=== PATIENT | female | born 1935 | race African-American/Black ===

== ENCOUNTER 2016-03-08 13:45 | Outpatient (RCR) | payer MEDICARE, OTHER ==
[~2016-03-08 13:45] MED LIST: AMBIEN10 MG ORAL; ANUSOL-HC CREAM30 GM RECTAL; ASPIR 8181 MG ORAL; AUGMENTIN 875-1 EAC1 ORAL; AZITHROMYCIN250 MG ORAL; BACTRIM DS TAB1 EAC1 ORAL; BENZTROPINE MESY1 MG ORAL; BUSPAR10 MG ORAL; BUSPIRONE HCL5 M1 ORAL; COGENTIN1 MG ORAL; COSOPT1 DRO2 BOTH EYES; COUGH CONT100 MG/5 M PO; CYMBALTA60 MG ORAL; DONEPEZIL HCL10 MG ORAL; FOSAMAX70 MG ORAL; FUROSEMIDE40 MG ORAL; GENTAMICIN SULF15 G2 TOPIC; INVEGA3 MG PO; LIDODERM700 M1 TDERMAL; LUMIGAN2.5 ML BOTH EYES; NAPROSYN500 M1 ORAL; NORCO 5-325 TA1 EACH ORAL; OMEPRAZOLE20 M2 ORAL; PANTOPRAZOLE SO40 MG ORAL; PENTOXIFYLLINE400 MG ORAL; POTASSIUM CHLO10 MEQ ORAL; PREDNISONE20 MG ORAL; REMERON15 MG ORAL; RESTORIL30 MG ORAL; RISPERDAL2 MG ORAL; RISPERIDONE3 MG ORAL; TEMAZEPAM30 MG ORAL; TOVIAZ8 MG ORAL; TOVIAZ8 MG PO; TRAZODONE HCL150 MG ORAL; VITAMIN D1000 UNI1 ORAL; VOLTAREN100 G1 TP
[2016-04-19] MEDS ORDERED: INVEGA SUS78 MG/0.5 IM (13:48)
== END 2016-03-27 | disposition home or self-care (01) ==
LOC: PTY 13:45
DX: M54.9 Dorsalgia, unspecified (principal); R26.9 Unspecified abnormalities of gait and mobility
CPT/HCPCS: 97110; 97140; G0283

== ENCOUNTER 2016-04-03 10:35 | Inpatient (IN) | payer MEDICARE, OTHER ==
[~2016-04-03] VITALS: Ht 162.6 cm; Wt 90.7 kg
[2016-04-03 10:55] VITALS: BP 150/60
--- NOTE | 2016-04-03 12:36 | Diagnostic Imaging Report ---
Indication: Altered mental status, confused Technique: spiral acquisitions obtained through the brain. Angled axial and coronal 5 x 5 mm slices were reconstructed. No IV contrast utilized. Radiation dose was minimized using automated exposure control Total dose length product 1340 mGycm. CTDIvol(s) 70 mGy Comparison: none FINDINGS: No acute hemorrhage or edema. No mass effect or midline shift. There is minimal age-related enlargement of the ventricles and extra axial CSF spaces. There is minimal periventricular deep white matter ischemic change. Normal dinh-white differentiation. Visualized orbits are unremarkable. Visualized sinuses are unremarkable. Intact calvarium. IMPRESSION: Chronic and age-related changes. Negative for acute intracranial bleed or mass effect The CT scanner at [facility] is accredited by the [employer] and the scans are performed using protocols designed to limit radiation exposure to as low as reasonably achievable to attain images of sufficient resolution adequate for diagnostic evaluation
[2016-04-03 12:59] LABS: BASOPHILS % (AUTO) 1.2 % (0.0-2.0); EOSINOPHILS % (AUTO) 0.4 % (0.0-3.0); LYMPHOCYTES % (AUTO) 23.2 % (20.0-45.0); MEAN CORPUSCULAR HEMOGLOBIN 30.6 PG (27.0-31.0); MEAN CORPUSCULAR VOLUME 93 FL (80-99); MEAN PLATELET VOLUME 5.6 FL (6.5-10.1); MONOCYTES % (AUTO) 9.3 % (1.0-10.0); NEUTROPHILS % (AUTO) 65.9 % (45.0-75.0); PLATELET COUNT 348 K/UL (150-450); RED BLOOD COUNT 3.78 M/UL (4.20-5.40); RED CELL DISTRIBUTION WIDTH 11.9 % (11.6-14.8); WHITE BLOOD COUNT 4.6 K/UL (4.8-10.8)
[2016-04-03 13:05] LABS: APPEARANCE,URINE CLEAR; KETONES,URINE NEGATIVE (NEGATIVE); LEUKOCYTE ESTERASE ,URINE NEGATIVE (NEGATIVE); NITRITE,URINE NEGATIVE (NEGATIVE); PH,URINE 7 (4.5-8.0); PROTEIN,URINE NEGATIVE (NEGATIVE); UROBILINOGEN,URINE NORMAL MG/DL (0.0-1.0)
[2016-04-03 13:24] LABS: ALANINE AMINOTRANSFERASE 10 U/L (3-33); ALBUMIN/GLOBULIN RATIO 1.3 (1.0-2.7); ALCOHOL < 10 mg/dL; ANION GAP 13 (5-15); ASPARTATE AMINO TRANSFERASE 16 U/L (5-40); CALCIUM 9.2 mg/dL (8.6-10.2); CARBON DIOXIDE 27 mEQ/L (20-30); CHLORIDE 86 mEQ/L (98-107); CREATININE 0.6 mg/dL (0.5-0.9); HEMOLYSIS 10; POTASSIUM 4.8 mEQ/L (3.4-4.9); SODIUM 126 mEQ/L (135-145); TOTAL PROTEIN 7.1 g/dL (6.6-8.7)
[2016-04-03 13:35] LABS: FREE T3 3.4 pg/mL (2.3-4.2); THYROID STIMULATING HORMONE 0.906 uIU/mL (0.300-4.500)
[2016-04-03 14:00] VITALS: BP 149/68
[2016-04-03 15:15] VITALS: BP 148/67
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
[2016-04-03 18:00] VITALS: BP 145/65
[2016-04-03 22:10] VITALS: BP 166/90
[2016-04-03] MEDS ORDERED: RisperiDONE 0.25mg tab ORAL PRN (22:15)
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
[2016-04-04] VITALS: BP 132/83
[2016-04-04] MEDS: BusPIRone 5mg Tab ORAL SCH ×3 (00:07→17:44)
[2016-04-04 04:00] VITALS: BP 141/80
[2016-04-04 07:32] LABS: CREATININE, RANDOM URINE 50.4 mg/dL
[2016-04-04 07:45] LABS: ANION GAP 14 (5-15); CALCIUM 9.2 mg/dL (8.6-10.2); CARBON DIOXIDE 25 mEQ/L (20-30); CHLORIDE 94 mEQ/L (98-107); CREATININE 0.6 mg/dL (0.5-0.9); HEMOLYSIS 18; POTASSIUM 4.1 mEQ/L (3.4-4.9); SODIUM 133 mEQ/L (135-145)
[2016-04-04 08:23] VITALS: BP 137/57
[2016-04-04] MEDS: Benztropine 1mg tab ORAL SCH ×2 (09:24→17:44)
[2016-04-04] MEDS: Oxybutynin 5mg tab ORAL SCH ×2 (09:24→17:44)
[2016-04-04] MEDS: DULoxetine 30mg cap ORAL SCH (09:24)
[2016-04-04] MEDS: Aspirin EC 81mg tab ORAL SCH (09:25)
[2016-04-04] MEDS: Cosopt Opth Soln 10 mL Btl BOTH EYES SCH ×2 (09:30→18:13)
[2016-04-04 12:01] VITALS: BP 133/71
[2016-04-04] MEDS: Vitamin D 1000 IU Tab ORAL SCH (12:42)
--- NOTE | 2016-04-04 13:08 | Diagnostic Imaging Report ---
Indications: Chest pain Technique: Portable AP chest Findings: Comparison: 10/30/2014 Cardiac silhouette remains normal in size. Pulmonary vasculature remains within normal limits. Small calcified nodule in right lower lung unchanged. Lungs and pleura remain otherwise clear. Mild calcification of the aortic arch is again noted. IMPRESSION: No evidence of acute disease, unchanged Stable chronic changes as described
[2016-04-04 16:12] VITALS: BP 142/67
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
[2016-04-04] MEDS ORDERED: RisperiDONE 0.25mg tab ORAL ONE (18:00)
[2016-04-04 20:13] VITALS: BP 133/56
[2016-04-04] MEDS: TraZODone HCl 25 mg tablet ORAL SCH (20:30)
[2016-04-04] MEDS: Ramelteon 8mg tab (Approved for Delirium use only) ORAL SCH (20:30)
[2016-04-04] MEDS: Donepezil 10mg tab ORAL SCH (20:31)
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
[2016-04-05 04:00] VITALS: BP 127/68
[2016-04-05 08:17] VITALS: BP 117/59
[2016-04-05] MEDS: Benztropine 1mg tab ORAL SCH ×2 (10:42→19:56)
[2016-04-05] MEDS: Cosopt Opth Soln 10 mL Btl BOTH EYES SCH ×2 (10:42→19:55)
[2016-04-05] MEDS: BusPIRone 5mg Tab ORAL SCH ×2 (10:42→19:56)
[2016-04-05] MEDS: Aspirin EC 81mg tab ORAL SCH (10:43)
[2016-04-05] MEDS: DULoxetine 30mg cap ORAL SCH (10:43)
[2016-04-05] MEDS: Oxybutynin 5mg tab ORAL SCH ×2 (10:43→19:56)
[2016-04-05] MEDS: Vitamin D 1000 IU Tab ORAL SCH (10:44)
[2016-04-05 11:48] VITALS: BP 118/59
[2016-04-05 16:10] VITALS: BP 123/56
--- NOTE | 2016-04-05 16:46 | Geriatric Progress Note ---
Assessment/Plan Problems: (1) Hyponatremia (2) MCI (mild cognitive impairment) (3) Schizoaffective disorder (4) Paranoid psychosis (5) Glaucoma (6) Venous insufficiency (7) Back ache (8) Neck pain (9) Gait abnormality Assessment/Plan No evidence of metabolic etiology. Continue present medications. Primary psychiatric exacerbation. Transfer to psychiatric unit for further treatment. Risperdal further titration per Dr. Boyd. Discussed with: patient, hospital staff Subjective Interval Events Patient alert, reports feeling better, less nervous than yesterday. Spoke with Dr. Carpenter earlier, plan transfer to inpatient psych for medication titration. Patient reassured re concern about colon cancer, seems to accept information. Agrees with psych transfer. Also seen by Dr. Boyd. No new issues. Constitutional: Denies: chills, fever Respiratory: Denies: cough, shortness of breath Cardiovascular: Denies: chest pain, palpitations Gastrointestinal/Abdominal: Denies: abdominal pain Genitourinary: Denies: dysuria Musculoskeletal: Reports: back pain Neurologic: Reports: headache Geriatric Geriatric Last 24 Hour Vital Signs Date Time Temp Pulse Resp B/P Pulse Ox O2 Delivery O2 Flow Rate FiO2 04/05/16 16:10 97.9 70 20 123/56 99 Room Air 04/05/16 14:28 120/66 04/05/16 11:48 98.0 72 20 118/59 100 Room Air 04/05/16 09:00 107/51 04/05/16 08:17 98.4 95 20 117/59 97 Room Air 04/05/16 04:00 98.1 72 19 127/68 98 Room Air 04/04/16 20:13 98.1 71 21 133/56 100 Room Air 04/04/16 17:44 142/67 Intake and Output 04/04/16 04/05/16 19:00 07:00 Intake Total 480 ml 350 ml Output Total 0 ml Balance 480 ml 350 ml Intake Oral 480 ml 350 ml Output Urine Total 0 ml # Voids 2 2 Current Medications Medications (Trade) Dose Ordered Sig/Esthela Route PRN Reason Start Time Stop Time Status Last Admin Dose Admin Alendronate Sodium (Fosamax) 70 mg Th@06 ORAL 04/05/16 11:00 05/05/16 10:59 04/05/16 11:45 Aspirin (Ecotrin) 81 mg DAILY ORAL 04/04/16 09:00 05/04/16 08:59 04/05/16 10:43 Benztropine Mesylate (Cogentin) 1 mg BID ORAL 04/04/16 09:00 05/04/16 08:59 04/05/16 10:42 Buspirone HCl (Buspar) 5 mg BID ORAL 04/03/16 22:15 05/03/16 22:14 04/05/16 10:42 Dextrose (Dextrose 50%) STAT PRN IV Hypoglycemia 04/03/16 22:45 05/03/16 22:44 Donepezil HCl (Aricept) 10 mg BEDTIME ORAL 04/04/16 21:00 05/04/16 20:59 04/04/16 20:31 Dorzolamide/ Timolol (Cosopt) 1 drop BID BOTH EYES 04/04/16 09:00 05/04/16 08:59 04/05/16 10:42 Duloxetine HCl (Cymbalta) 60 mg DAILY ORAL 04/04/16 09:00 05/04/16 08:59 04/05/16 10:43 Furosemide (Lasix) 30 mg DAILY ORAL 04/04/16 09:00 05/04/16 08:59 04/05/16 10:44 Latanoprost (Xalatan) 1 drop BEDTIME BOTH EYES 04/04/16 21:00 05/04/16 20:59 04/04/16 20:33 Mirtazapine (Remeron) 15 mg BEDTIME ORAL 04/04/16 21:00 05/04/16 20:59 04/04/16 20:31 Oxybutynin Chloride (Ditropan) 5 mg BID ORAL 04/04/16 09:00 05/04/16 08:59 04/05/16 10:43 Pantoprazole (Protonix) 40 mg DAILY ORAL 04/04/16 09:00 05/04/16 08:59 04/05/16 10:49 Pentoxifylline (TRENtal) 400 mg THREE TIMES A DAY ORAL 04/04/16 09:00 05/04/16 08:59 04/05/16 14:28 Potassium Chloride (K-Dur) 10 meq TWICE A DAY ORAL 04/04/16 09:00 05/04/16 08:59 04/05/16 10:43 Ramelteon (Rozerem) 8 mg QHS ORAL 04/04/16 21:00 05/04/16 20:59 04/04/16 20:30 Risperidone (RisperDAL) 5 mg QHS ORAL 04/04/16 21:00 05/04/16 20:59 04/04/16 20:33 Trazodone HCl (Desyrel) 75 mg BEDTIME ORAL 04/04/16 21:00 05/04/16 20:59 04/04/16 20:30 Vitamin D (Vitamin D) 1,000 intlu DAILY ORAL 04/04/16 09:00 05/04/16 08:59 04/05/16 10:44 Height (Feet): 5 Height (Inches): 4.00 Weight (Pounds): 200 General Appearance: no apparent distress, alert Head: normocephalic Eyes: bilateral anicteric ENT: normal voice Neck: full range of motion, no mass Respiratory: lungs clear Cardiovascular: regular rate, rhythm Gastrointestinal: normal bowel sounds, non tender, soft, no mass, no organomegaly, non-distended Musculoskeletal: no calf tenderness Edema: no edema noted Generalized Neurologic: no new focality DEWEY SCHMIDT Apr 05, 2016 16:46
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
[2016-04-05 20:50] VITALS: BP 133/64
[2016-04-05] MEDS: TraZODone HCl 25 mg tablet ORAL SCH (21:59)
[2016-04-05] MEDS: Ramelteon 8mg tab (Approved for Delirium use only) ORAL SCH (21:59)
[2016-04-05] MEDS: Donepezil 10mg tab ORAL SCH (21:59)
[2016-04-06] VITALS: BP 136/53
[2016-04-06 04:00] VITALS: BP 130/51
[2016-04-06 08:45] VITALS: BP 135/55
[2016-04-06] MEDS: DULoxetine 30mg cap ORAL SCH (09:37)
[2016-04-06] MEDS: Vitamin D 1000 IU Tab ORAL SCH (09:37)
[2016-04-06] MEDS: Oxybutynin 5mg tab ORAL SCH (09:37)
[2016-04-06] MEDS: Cosopt Opth Soln 10 mL Btl BOTH EYES SCH (09:38)
[2016-04-06] MEDS: Benztropine 1mg tab ORAL SCH (09:38)
[2016-04-06] MEDS: BusPIRone 5mg Tab ORAL SCH (09:38)
[2016-04-06] MEDS: Aspirin EC 81mg tab ORAL SCH (09:38)
[2016-04-06] MEDS ORDERED: RISPERDAL2 MG ORAL (11:49)
[2016-04-06] MEDS ORDERED: ROZEREM8 MG PO (11:50)
[2016-04-06] MEDS ORDERED: DITROPAN10 MG ORAL (11:54)
[2016-04-06 12:02] VITALS: BP 118/62
[2016-04-08 15:10] LABS: HIV RNA PCR QUANT <20 copies/mL (.)
--- NOTE | 2016-04-09 10:39 | Discharge Summary ---
DATE OF ADMISSION: 04/03/2016 DATE OF DISCHARGE: 04/06/2016 DISCHARGE DIAGNOSES: 1. 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 2. Mild hyponatremia, resolved. Etiology secondary to psychiatric medications versus psychogenic polydipsia versus volume depletion. 3. Mild cognitive impairment. 4. History of syncope, felt to be vasovagal associated with volume depletion. 5. History of rhabdomyolysis associated with fall. 6. Prior episodes of electrolyte disorder with hyponatremia and hypokalemia. 7. Episode of transient left hemiparesis without evidence of focal neurologic findings secondary to mechanical injury. 8. Gait instability. 9. Glaucoma. 10. Venous insufficiency with episodic dependent edema. 11. Obesity. 12. Osteoarthritis. 13. Osteoporosis. 14. Vitamin D deficiency. 15. 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 16. Status post cholecystectomy for biliary colic. 17. Urinary frequency. 18. Status post hysterectomy. 19. History of left breast lipoma resection. 20. Status post tonsillectomy and adenoidectomy. 21. Status post bladder suspension with episodic urinary incontinence. 22. Status post soft tissue resection from right arm. 23. Status post Bartholin's abscess drainage with recurrent vaginolabial abscesses. HISTORY OF PRESENT ILLNESS: The patient is a 80-year-old woman who presented to the emergency room with altered behavior after referral from her outpatient psychiatric program. Details of the history and physical examination are per the dictation of 04/03/2016. HOSPITAL COURSE: The patient was admitted and seen by psychiatric consultation by Dr. Onesimo Carpenter and also Dr. Charlotte Boyd. Ms. Livingston did present with mild hypernatremia on admission, but repeat laboratories after one day of hospitalization revealed essentially normal sodium. The abnormally was associated with either volume depletion or psychogenic polydipsia versus inappropriate medication self administration. Other than this, the patient had no convincing evidence of another metabolic cause of her changes. Because of formulary issues, the patient's Invega was switched to Risperdal, this was titrated upward to 5 mg nightly by the time of discharge. Similarly, Lumigan was substituted by Xalatan, Toviaz by Ditropan, Protonix for omeprazole, and Rozerem for Restoril. After psychiatric evaluation, it was agreed that the patient would benefit from a psychiatric admission, the PET team from [facility] evaluated the patient on 04/06/2016 and placed her on appropriate hold and transferred to the psychiatric hospital for further treatment. The patient to be followed as an outpatient after she is psychiatrically stable. Magdaleno Villegas M.D. DR: AURORA JOB#: [id number] CC: LAZARO
--- NOTE | 2016-04-10 14:53 | Cardiology Report ---
APPROVED REPORT EKG Measurement Heart [id number] Normal sinus rhythm Possible Left atrial enlargement Borderline ECG
[2016-04-19] MEDS ORDERED: INVEGA SUS78 MG/0.5 IM (13:48)
== END 2016-04-06 14:15 | DRG 641 ==
LOC: EMR 12:15 → 4W 20:39 → EDBEDREQ 20:58
DX: E87.1 Hypo-osmolality and hyponatremia (principal); I10 Essential (primary) hypertension; F20.0 Paranoid schizophrenia; H40.9 Unspecified glaucoma; R26.9 Unspecified abnormalities of gait and mobility; M54.9 Dorsalgia, unspecified; Z60.2 Problems related to living alone; K21.9 Gastro-esophageal reflux disease without esophagitis; I87.2 Venous insufficiency (chronic) (peripheral); M54.2 Cervicalgia; G31.84 Mild cognitive impairment of uncertain or unknown etiology; E66.9 Obesity, unspecified; Z68.34 Body mass index [BMI] 34.0-34.9, adult; M81.0 Age-related osteoporosis without current pathological fracture; M19.90 Unspecified osteoarthritis, unspecified site; Z86.73 Personal history of transient ischemic attack (TIA), and cerebral infarction without residual deficits
CPT/HCPCS: 36415; 70450; 71020; 80048; 80053; 80300; 80329; 81003; 82570; 82962; 83935; 84300; 84439; 84443; 84481; 85025; 86703; 87491; 87536; 87590; 93005

== ENCOUNTER 2016-09-14 09:23 | Outpatient (CLI) | payer MEDICARE, OTHER ==
[~2016-09-14 09:23] MED LIST changes: +DITROPAN10 MG ORAL; +INVEGA SUS78 MG/0.5 IM; +ROZEREM8 MG PO
[2016-09-14 10:28] LABS: BASOPHILS % (AUTO) 0.7 % (0.0-2.0); EOSINOPHILS % (AUTO) 0.6 % (0.0-3.0); LYMPHOCYTES % (AUTO) 19.7 % (20.0-45.0); MEAN CORPUSCULAR HEMOGLOBIN 30.7 PG (27.0-31.0); MEAN CORPUSCULAR HGB CONC 32.2 G/DL (32.0-36.0); MEAN CORPUSCULAR VOLUME 95 FL (80-99); MEAN PLATELET VOLUME 5.7 FL (6.5-10.1); NEUTROPHILS % (AUTO) 70.9 % (45.0-75.0); PLATELET COUNT 392 K/UL (150-450); RED BLOOD COUNT 3.87 M/UL (4.20-5.40); RED CELL DISTRIBUTION WIDTH 12.2 % (11.6-14.8); WHITE BLOOD COUNT 5.1 K/UL (4.8-10.8)
[2016-09-14 10:57] LABS: ALANINE AMINOTRANSFERASE 10 U/L (3-33); ALBUMIN/GLOBULIN RATIO 1.2 (1.0-2.7); ANION GAP 9 (5-15); ASPARTATE AMINO TRANSFERASE 17 U/L (5-40); CARBON DIOXIDE 29 mEQ/L (20-30); CHLORIDE 92 mEQ/L (98-107); CREATININE 0.8 mg/dL (0.5-0.9); CRP QUANT 0.4 mg/dL (< 0.5); HEMOLYSIS 8; POTASSIUM 4.5 mEQ/L (3.4-4.9); SODIUM 130 mEQ/L (135-145)
[2016-09-14 11:08] LABS: THYROID STIMULATING HORMONE 0.936 uIU/mL (0.300-4.500)
[2016-09-17 16:14] LABS: VITAMIN D 25-OH TOTAL 26 ng/mL (.)
== END 2016-09-14 11:23 | disposition home or self-care (01) ==
LOC: LAB 09:23
DX: R41.3 Other amnesia (principal)
CPT/HCPCS: 36415; 80053; 82306; 82607; 82746; 83735; 84443; 85025; 86140

== ENCOUNTER 2017-03-01 14:01 | Emergency (ER) | payer MEDICARE, OTHER ==
[~2017-03-01] VITALS: Ht 170.2 cm; Wt 104.3 kg
[2017-03-01 14:05] VITALS: BP 125/77
--- NOTE | 2017-03-01 14:36 | Emergency Room Report ---
History of Present Illness General Chief Complaint: Earache Present Illness HPI 81-year-old female presents to the emergency department complaining of 8/10 in severity bilateral ear pain x2 days. Patient states she is currently using antibiotic ear drops are prescribed to her by her PMD. Patient reports worsening of her left-sided ear pain she denies discharge from the ears, Q-tip use or tenderness to the external ears. Patient denies fevers, chills or cough. Pt. denies hearing loss, reports muffled hearing at times. She does report nasal congestion and states that she is getting over a recent upper respiratory illness. Denies tinnitus. Denies CP, Palpitations, LOC, AMS, dizziness, Changes in Vision, Sensation, paresthesias, or a sudden severe headache. Allergies: Coded Allergies: CODEINE (Verified Allergy, Severe, BREAKS OUT IN BUMPS, SWELLING, 10/13/12) IBUPROFEN (Verified Adverse Reaction, Unknown, GI UPSET / VOMITTING, ) Uncoded Allergies: MOLTRIN (Allergy, Unknown, RASH,NAUSEA, 02/24/16) Patient History Past Medical History: see triage record Past Surgical History: none Pertinent Family History: none Immunizations: UTD Reviewed Nursing Documentation: PMH: Agreed, PSxH: Agreed Nursing Documentation-PMH Hx Cardiac Problems: Yes - chest pain Hx Hypertension: Yes Hx Pacemaker: No Hx Asthma: No Hx COPD: No Hx Diabetes: No Hx Cancer: No Hx Dialysis: No Hx Neurological Problems: Yes Hx Cerebrovascular Accident: Yes - 2010 Hx Dementia: Yes Hx Seizures: No Hx Speech Problem: Yes Hx Dizziness: Yes Hx Headaches: Yes Hx Fatigue: Yes Review of Systems All Other Systems: negative except mentioned in HPI Physical Exam Vital Signs Date Time Temp Pulse Resp B/P (MAP) Pulse Ox O2 Delivery O2 Flow Rate FiO2 03/01/17 14:05 97.9 20 125/77 99 Room Air 03/01/17 14:05 101 Sp02 EP Interpretation: reviewed, normal General Appearance: no apparent distress, alert, GCS 15, non-toxic Head: normocephalic, atraumatic Eyes: bilateral eye normal inspection, bilateral eye PERRL ENT: hearing grossly normal, normal pharynx, no angioedema, normal voice, uvula midline, nasal congestion, other - Left TM is erythematous and bulging, purulent d/c noted in the left canal, the Right TM and canal are WNL Neck: full range of motion, supple/symm/no masses Respiratory: lungs clear, normal breath sounds, no respiratory distress, speaking full sentences Cardiovascular #1: regular rate, rhythm Musculoskeletal: back normal, gait/station normal, normal range of motion, non- tender Neurologic: alert, oriented x3, responsive, motor strength/tone normal, sensory intact, normal gait, speech normal Skin: normal color, no rash, warm/dry, well hydrated Lymphatic: no adenopathy Medical Decision Making PA Attestation Dr. Quiroz is my supervising Physician whom patient management has been discussed with. Diagnostic Impression: Primary Impression: Otitis media Qualified Codes: H66.92 - Otitis media, unspecified, left ear ER Course 81-year-old female presents to the emergency department complaining of 8/10 in severity bilateral ear pain x2 days. Patient states she is currently using antibiotic ear drops are prescribed to her by her PMD. Patient reports worsening of her left-sided ear pain she denies discharge from the ears, Q-tip use or tenderness to the external ears. Patient denies fevers, chills or cough. Pt. denies hearing loss, reports muffled hearing at times. She does report nasal congestion and states that she is getting over a recent upper respiratory illness. Denies tinnitus. Denies CP, Palpitations, LOC, AMS, dizziness, Changes in Vision, Sensation, paresthesias, or a sudden severe headache. Ddx considered but are not limited to OM, OE, mastoiditis, TM perforation, FB Vital signs: are WNL, pt. is afebrile H&PE are most consistent with otitis media ORDERS: none required at this time, the diagnosis is clinical -OTOSCOPY: Left TM is erythematous and bulging, purulent d/c noted in the left canal, the Right TM and canal are WNL. ED INTERVENTIONS: None required at this time. -I do not identify an emergent condition at this time. With current presentation , pt. is stable for close outpatient follow up and conservative treatment. D/ w pt. to return promptly to ED with worsening or new symptoms.- Pt. verbalizes ' understanding and agreement with proposed treatment plan.proposed treatment plan. DISCHARGE: At this time pt. is stable for d/c to home. With PO ABX and generic Auralgan drops. . Will provide printed patient care instructions, and any necessary prescriptions. Care plan and follow up instructions have been discussed with the patient prior to discharge. Last Vital Signs Date Time Temp Pulse Resp B/P (MAP) Pulse Ox O2 Delivery O2 Flow Rate FiO2 03/01/17 14:05 97.9 101 20 125/77 99 Room Air Disposition: HOME, SELF-CARE Condition: Stable Scripts Acetaminophen* (TYLENOL EXTRA STRENGTH*) 500 Mg Tablet 500 MG ORAL Q6H Y for For Pain, #20 TAB 0 Refills Prov: Carolyn Jacques 03/01/17 Amoxicillin/Potassium Clav 875-125* (AUGMENTIN 875-125 TABLET*) 1 Each Tablet 1 TAB ORAL TWICE A DAY for 10 Days, #20 TAB Prov: Carolyn Jacques 03/01/17 [Auralgan Generic] No Conflict Check 2 DROP OTIC PRN for For Pain, #15 ML Prov: Carolyn Jacques 03/01/17 Referrals: DEWEY SCHMIDT (PCP) Patient Instructions: Otitis Media, Adult, [id number] Additional Instructions: Take medications as directed. Follow up with a Primary Care Provider in 3-5 days, even if your symptoms have resolved. --Please review list of primary care clinics, if you do not already have a primary care provider Return sooner to ED if new symptoms occur, or current symptoms become worse. - Please note that this Emergency Department Report was dictated using [employer] technology software, occasionally this can lead to erroneous entry secondary to interpretation by the dictation equipment. Carolyn Jacques Mar 01, 2017 14:36
[2017-03-01] MEDS ORDERED: TYLENOL EXTRA500 MG ORAL (14:39)
[2017-03-01] MEDS ORDERED: [UNRECOGNIZED DRUG - OTHER] OTIC (14:39)
[2017-03-01] MEDS ORDERED: AUGMENTIN 875-1 EAC1 ORAL (14:39)
[2017-03-01 14:45] VITALS: BP 125/77
== END 2017-03-01 14:45 | disposition home or self-care (01) ==
LOC: EMR 14:18
DX: H66.92 Otitis media, unspecified, left ear (principal); I10 Essential (primary) hypertension; F03.90 Unspecified dementia, unspecified severity, without behavioral disturbance, psychotic disturbance, mood disturbance, and anxiety; Z86.73 Personal history of transient ischemic attack (TIA), and cerebral infarction without residual deficits
CPT/HCPCS: 99284

== ENCOUNTER 2017-07-28 14:33 | Emergency (ER) | payer MEDICARE, OTHER ==
[~2017-07-28] VITALS: Ht 162.6 cm; Wt 90.7 kg
[~2017-07-28 14:33] MED LIST changes: +TYLENOL EXTRA500 MG ORAL; +[UNRECOGNIZED DRUG - OTHER] OTIC
[2017-07-28 14:57] VITALS: BP 119/60
[2017-07-28 16:25] VITALS: BP 121/66
--- NOTE | 2017-07-28 18:13 | Emergency Room Report ---
History of Present Illness General Chief Complaint: Flu Like Symptoms Source: Patient Present Illness HPI 82-year-old female presents ED for evaluation. States for the last 8 days she' s been experiencing runny nose, cough and congestion. Cough is productive with yellowish phlegm. Afebrile. Denies sore throat. Denies sick contacts or recent travel. Was prescribed antibiotics by her PMD 3 days ago but states she seen no improvement. No other aggravating relieving factors. Denies any other associated symptoms Allergies: Coded Allergies: CODEINE (Verified Allergy, Severe, BREAKS OUT IN BUMPS, SWELLING, 10/13/12) IBUPROFEN (Verified Adverse Reaction, Unknown, GI UPSET / VOMITTING, ) Uncoded Allergies: MOLTRIN (Allergy, Unknown, RASH,NAUSEA, 02/24/16) Patient History Past Medical History: HTN, CVA/TIA, dementia Past Surgical History: none Pertinent Family History: none Social History: Denies: smoking, alcohol use, drug use Now: No Immunizations: UTD Reviewed Nursing Documentation: PMH: Agreed; PSxH: Agreed Nursing Documentation-PMH Hx Cardiac Problems: Yes - chest pain Hx Hypertension: Yes Hx Pacemaker: No Hx Asthma: No Hx COPD: No Hx Diabetes: No Hx Cancer: No Hx Dialysis: No Hx Neurological Problems: Yes Hx Cerebrovascular Accident: Yes - 2010 Hx Dementia: Yes Hx Seizures: No Hx Speech Problem: Yes Hx Dizziness: Yes Hx Headaches: Yes Hx Fatigue: Yes Review of Systems All Other Systems: negative except mentioned in HPI Physical Exam Vital Signs Date Time Temp Pulse Resp B/P (MAP) Pulse Ox O2 Delivery O2 Flow Rate FiO2 07/28/17 14:47 99.2 87 20 119/60 99 Room Air 99.1 Sp02 EP Interpretation: reviewed, normal General Appearance: no apparent distress, alert, GCS 15, non-toxic Head: normocephalic, atraumatic Eyes: bilateral eye normal inspection, bilateral eye PERRL ENT: hearing grossly normal, normal pharynx, no angioedema, normal voice Neck: full range of motion, supple/symm/no masses Respiratory: chest non-tender, lungs clear, normal breath sounds, speaking full sentences Cardiovascular #1: regular rate, rhythm, no edema Cardiovascular #2: 2+ carotid (R), 2+ carotid (L), 2+ radial (R), 2+ radial (L) , 2+ dorsalis pedis (R), 2+ dorsalis pedis (L) Gastrointestinal: normal bowel sounds, non tender, soft, non-distended, no guarding, no rebound Rectal: deferred Genitourinary: normal inspection, no CVA tenderness Musculoskeletal: back normal, gait/station normal, normal range of motion, non- tender Neurologic: alert, oriented x3, responsive, motor strength/tone normal, sensory intact, speech normal Psychiatric: judgement/insight normal, memory normal, mood/affect normal, no suicidal/homicidal ideation Reflexes: 3+ bicep (R), 3+ bicep (L), 3+ tricep (R), 3+ tricep (L), 3+ knee (R) , 3+ knee (L) Skin: normal color, no rash, warm/dry, well hydrated Lymphatic: no adenopathy Medical Decision Making Diagnostic Impression: Primary Impression: Upper respiratory infection Qualified Codes: J06.9 - Acute upper respiratory infection, unspecified ER Course Hospital Course 82-year-old female presents to ED complaining of cough, runny nose x 8 days Differential diagnoses include: URI, pharyngitis, otitis media, asthma Clinical course Patient placed on stretcher. After initial history, physical exam reveals a young male in no acute distress. Bilateral TM unremarkable. No pharyngeal erythema. No tonsillar exudates. No lymphadenopathy. lungs clear. abdomen soft. Chest x-ray shows no acute infiltrate I discussed findings with patient. Explained that symptoms will not typically resolve 3 days of antibiotics. Will require full course. Likelihood is this is viral and will take typically 10 days to 2 weeks for resolution. spoke to PMD Dr Schmidt; he agrees that patient be safely discharged to home Diagnosis - URI Stable and discharged home. continue abx as prescribed. Instructed to followup with PMD. Return to ED if symptoms recur or worsen Chest X-Ray Diagnostic Results Chest X-Ray Diagnostic Results : Chest X-Ray Ordered: Yes # of Views/Limited/Complete: 1 View Indication: Other - cough EP Interpretation: Yes Interpretation: no consolidation, no effusion, no pneumothorax, no acute cardiopulmonary disease Impression: No acute disease Electronically Signed by: Electronically signed by Gennaro Jaquez MD Last Vital Signs Date Time Temp Pulse Resp B/P (MAP) Pulse Ox O2 Delivery O2 Flow Rate FiO2 07/28/17 16:25 98.9 88 18 121/66 100 Room Air 99.1 Status: improved Disposition: HOME, SELF-CARE Condition: Stable Referrals: DEWEY SCHMIDT Patient Instructions: Upper Respiratory Infection, Adult, [id number] Gennaro Jaquez MD Jul 28, 2017 18:13
--- NOTE | 2017-07-29 10:35 | Diagnostic Imaging Report ---
Indication: Cough Technique: One view of the chest Comparison: 04/04/2016 Findings: There is a calcified granuloma the right lung base again demonstrated. The lungs and pleural spaces are otherwise clear. The heart size is normal. The aorta is tortuous and calcified. Impression: No acute process
--- NOTE | 2017-07-29 15:32 | Nursing Contact Progress Note ---
[facility] Nursing Contact Note Date: Jul 29, 2017 Type: Monthly Progress Update Additional Comments: This is a 82 year old female. The diagnosis is schizophrenia. The patient lives by herself. She has two daughters who are supportive. The patient attends on a regular basis. The patient is well groomed and polite. She states "that that the therapy sessions are good for her depression." The patient in good health. The vital signs are stable. The patient reviewed with the nurse the medication. The patient is "aware of the function and the action ". "The patient is compliant with the medication. "The medication list is accurate and complete.The patient meets with Dr. Carpenter on a regular basis.There are no changes in her medications. The patient meets with Dr. Villegas on a regular basis. The patient remains in good health.The nurse will monitor the patient for needs she may have. ALBERTO SNELL R.N Jul 29, 2017 15:32
== END 2017-07-28 17:00 | disposition home or self-care (01) ==
LOC: EMR 16:39
DX: J06.9 Acute upper respiratory infection, unspecified (principal); F03.90 Unspecified dementia, unspecified severity, without behavioral disturbance, psychotic disturbance, mood disturbance, and anxiety; Z86.73 Personal history of transient ischemic attack (TIA), and cerebral infarction without residual deficits; I10 Essential (primary) hypertension; Z88.6 Allergy status to analgesic agent
CPT/HCPCS: 71045; 99283

== ENCOUNTER 2017-10-10 13:49 | Outpatient (CLI) | payer MEDICARE, OTHER ==
--- NOTE | 2017-10-10 12:42 | Diagnostic Imaging Report ---
Indication: Abdominal pain Technique: Spiral acquisitions obtained through the abdomen and pelvis. Patient ingested oral contrast. No IV contrast utilized, per referring physician request.. Multiplanar reconstructions were generated. Total dose length product 873.39 mGycm. CTDIvol(s) 17.73 mGy. Dose reduction achieved using automated exposure control Comparison: None Findings: The appendix is normal. There is colonic diverticulosis. No evidence of diverticulitis. No small bowel distention or small bowel wall thickening. Distal esophagus, stomach, duodenum are unremarkable. There is a small fat-containing umbilical hernia. No free or loculated intraperitoneal gas or fluid is evident. Prominent, borderline enlarged lymph nodes are seen in the bilateral inguinal regions, largest right inguinal node measuring 5.6 cm long axis dimension. There is a bilateral pelvic adenopathy, with a right external iliac node measuring 4 cm long axis dimension. There is also para-aortic and paracaval lymphadenopathy with nodes of up to 3 cm in length. Mesenteric root lymph nodes are abundant but not frankly enlarged. There are enlarged retrocrural nodes, largest measuring 4 cm long axis dimension. Lack of IV contrast limits assessment of the solid organs. The liver is unremarkable. The gallbladder is surgically absent. The bile ducts are nondilated. The pancreas, spleen, adrenals, kidneys are all unremarkable. The bladder is unremarkable. No pelvic mass. The uterus is absent, presumably postsurgically. The included lung bases are clear. The bones demonstrate degenerative spondylosis changes. There is a a mild compression/burst fracture deformity of the L1 vertebral body, predominantly involving the superior endplate. Impression: Bilateral inguinal, bilateral pelvic, retroperitoneal retrocrural lymphadenopathy. Borderline mesenteric lymphadenopathy. Findings could indicate lymphoproliferative disorder, metastatic lymphadenopathy, or could be inflammatory/infectious in nature. Correlate with clinical history and findings L1 vertebral body compression fracture deformity. Age is indeterminate, although this does not appear to be evident on a prior plain radiograph of 03/11/2013. Consider MRI for better characterization if this is clinically relevant Colonic diverticulosis. No evidence of diverticulitis Evidence of prior cholecystectomy and hysterectomy Incidental finding of degenerative spondylosis The CT scanner at [facility] is accredited by the [employer] and the scans are performed using protocols designed to limit radiation exposure to as low as reasonably achievable to attain images of sufficient resolution adequate for diagnostic evaluation.
== END 2017-10-10 15:49 | disposition home or self-care (01) ==
LOC: CAT 13:49
DX: R10.9 Unspecified abdominal pain (principal); K57.90 Diverticulosis of intestine, part unspecified, without perforation or abscess without bleeding; Z90.49 Acquired absence of other specified parts of digestive tract; Z90.710 Acquired absence of both cervix and uterus; M47.9 Spondylosis, unspecified
CPT/HCPCS: 74176

== ENCOUNTER 2017-10-22 09:24 | Outpatient (CLI) | payer MEDICARE, OTHER ==
--- NOTE | 2017-10-22 11:17 | Pre-Procedure Note/Attestation ---
Pre-Procedure Note/Attestation Complete Prior to Procedure Planned Procedure: right Procedure Narrative: us guided inguinal node biopsy Indications for Procedure Pre-Operative Diagnosis: lymphadenopathy Attestation I attest that I discussed the nature of the procedure; its benefits; risks and complications; and alternatives (and the risks and benefits of such alternatives ), prior to the procedure, with the patient (or the patient's legal telesales representative). I attest that, if there was a reasonable possibility of needing a blood transfusion, the patient (or the patient's legal telesales representative) was given the [facility] standardized written summary, pursuant to the Angelo Malu Blood Safety Act ([place] Health and Safety Code # 1645, as amended). I attest that I re-evaluated the patient just prior to the surgery and that there has been no change in the patient's H&P, except as documented below: Magdaleno Duong MD Oct 22, 2017 11:17
--- NOTE | 2017-10-22 12:36 | Brief Operative Note ---
Immediate Post Operative Note Operative Note Pre-op Diagnosis: lymphadenopathy Procedure: US GUIDED R GROIN NODE BIOPSY Post-op Diagnosis: same as pre-op Findings: consistent w/pre-op dx studies Surgeon: Cathy DUONG Anesthesia: local Specimen: yes - 4 18 G cores Complications: none Condition: stable Fluids: none Estimated Blood Loss: none Drains: none Implant(s) used?: No Magdaleno Duong MD Oct 22, 2017 12:36
--- NOTE | 2017-10-24 09:15 | Diagnostic Imaging Report ---
Indication: Generalized lymphadenopathy demonstrated on prior CT scan Technique: Informed consent obtained prior to commencement of the procedure. Procedural timeout performed. The groins were surveyed with sonography, node in the right groin selected as target. Sterile prepping and draping. Local anesthesia with 1% lidocaine. Under real-time all sent guidance, 17-gauge guide needle was directed into the periphery of the targeted noted. Total 4 needle passes then made using automated biopsy gun. 3 specimens placed in formalin and one in RPMI. Specimen was sent to the lab. The patient tolerated the procedure well, without immediate complication. Comparison: none Findings: Intraprocedural images document needle access into the targeted node Impression: Right groin lymph node biopsy, as described Pathology report is available, describes positive B-cell lymphoproliferative disorder, with Main differential considerations including follicular lymphoma, Burkitt lymphoma, and large B-cell lymphoma. This is concordant with imaging findings
== END 2017-10-22 11:24 | disposition home or self-care (01) ==
LOC: ULS 09:24
DX: D47.Z9 Other specified neoplasms of uncertain behavior of lymphoid, hematopoietic and related tissue (principal)
CPT/HCPCS: 76942

== ENCOUNTER 2018-03-20 09:44 | Emergency (ER) | payer MEDICARE, OTHER ==
[~2018-03-20] VITALS: Ht 162.6 cm; Wt 90.7 kg
[~2018-03-20 09:44] MED LIST changes: +TRAMADOL HCL50 MG ORAL; +ZOFRAN4 M3 ORAL; +[UNRECOGNIZED DRUG - OTHER] PO; +[UNRECOGNIZED DRUG - REMARK] PO
--- NOTE | 2018-03-20 10:27 | NUR ---
ED Nurse Note: Daughter Miguelina Hankins called and left contact @ [phone]
--- NOTE | 2018-03-20 10:36 | NUR ---
ED Nurse Note:blood sent to labs
--- NOTE | 2018-03-20 10:38 | Emergency Room Report ---
History of Present Illness General Chief Complaint: Generalized Weakness Source: Patient, Medical Record, PMD Present Illness HPI This patient presents from a senior care facility. Patient has a history of non-Hodgkin lymphoma and is on chemotherapy. She is on oral chemotherapy. She presents today for generalized weakness. She states that her daughter and she is very depressed. She states her daughter was found in her apartment. She states her daughter's body is currently in the morgue and she and her family are trying to come up with the money to pay for a cremation. She states that her daughter had no type of insurance. She states she is sad and depressed about this. She denies fever or chills. She denies nausea or vomiting. She denies pain. She states she just feels weak and fatigued. Allergies: Coded Allergies: CODEINE (Verified Allergy, Severe, BREAKS OUT IN BUMPS, SWELLING, 10/13/12) IBUPROFEN (Verified Adverse Reaction, Unknown, GI UPSET / VOMITTING, ) Uncoded Allergies: MOLTRIN (Allergy, Unknown, RASH,NAUSEA, 02/24/16) Patient History Past Medical History: see triage record, HTN, CVA/TIA, dementia, other - Non- Hodgkin lymphoma Past Surgical History: elieser, hysterectomy Social History: Denies: smoking, alcohol use, drug use Now: No Reviewed Nursing Documentation: PMH: Agreed; PSxH: Agreed Nursing Documentation-PMH Hx Cardiac Problems: Yes - chest pain Hx Hypertension: Yes Hx Pacemaker: No Hx Asthma: No Hx COPD: No Hx Diabetes: No Hx Cancer: Yes - LYMPHOMA Hx Dialysis: No History Of Psychiatric Problem: Yes Hx Neurological Problems: Yes Hx Cerebrovascular Accident: Yes - 2010 Hx Dementia: Yes Hx Seizures: No Hx Speech Problem: Yes Hx Dizziness: Yes Hx Headaches: Yes Hx Fatigue: Yes Review of Systems All Other Systems: negative except mentioned in HPI Physical Exam Vital Signs Date Time Temp Pulse Resp B/P (MAP) Pulse Ox O2 Delivery O2 Flow Rate FiO2 03/20/18 09:49 98.2 85 19 116/55 97 Room Air Sp02 EP Interpretation: reviewed, normal General Appearance: no apparent distress, alert, GCS 15, non-toxic Head: normocephalic, atraumatic Eyes: bilateral eye normal inspection, bilateral eye PERRL ENT: hearing grossly normal, normal pharynx, no angioedema, normal voice Neck: full range of motion, supple/symm/no masses Respiratory: chest non-tender, lungs clear, normal breath sounds, no respiratory distress, no retraction, no accessory muscle use, speaking full sentences Cardiovascular #1: regular rate, rhythm, no edema Gastrointestinal: normal bowel sounds, non tender, soft, non-distended, no guarding, no rebound Rectal: deferred Musculoskeletal: back normal, gait/station normal, normal range of motion, non- tender Neurologic: alert, oriented x3, responsive, motor strength/tone normal, sensory intact, speech normal Psychiatric: judgement/insight normal, memory normal, mood/affect normal, no suicidal/homicidal ideation Skin: normal color, no rash, warm/dry, well hydrated Medical Decision Making Diagnostic Impression: Primary Impression: Episode of generalized weakness Additional Impression: Depression ER Course I suspect this patient has depression related to the of her daughter. I did not identify any etiology for the patient's nonspecific complaints of generalized weakness. She was given IV fluids. Overall, the patient is well- appearing and nontoxic. I did offer the patient admission to the hospital for further testing. However, she declined stating she would rather go home. She will follow-up with her primary care physician Dr. Magdaleno Villegas. At this time I do not suspect an emergency medical condition. Laboratory Tests Test 03/20/18 10:30 03/20/18 11:55 03/20/18 13:40 White Blood Count 4.5 K/UL (4.8-10.8) L Red Blood Count 4.05 M/UL (4.20-5.40) L Hemoglobin 12.2 G/DL (12.0-16.0) Hematocrit 37.0 % (37.0-47.0) Mean Corpuscular Volume 91 FL (80-99) Mean Corpuscular Hemoglobin 30.3 PG (27.0-31.0) Mean Corpuscular Hemoglobin Concent 33.1 G/DL (32.0-36.0) Red Cell Distribution Width 12.6 % (11.6-14.8) Platelet Count 333 K/UL (150-450) Mean Platelet Volume 5.7 FL (6.5-10.1) L Neutrophils (%) (Auto) 61.4 % (45.0-75.0) Lymphocytes (%) (Auto) 20.5 % (20.0-45.0) Monocytes (%) (Auto) 14.5 % (1.0-10.0) H Eosinophils (%) (Auto) 2.7 % (0.0-3.0) Basophils (%) (Auto) 0.9 % (0.0-2.0) Sodium Level 136 MMOL/L (136-145) Potassium Level 3.7 MMOL/L (3.5-5.1) Chloride Level 99 MMOL/L (98-107) Carbon Dioxide Level 29 MMOL/L (21-32) Anion Gap 8 mmol/L (5-15) Blood Urea Nitrogen 4 mg/dL (7-18) L Creatinine 1.0 MG/DL (0.55-1.30) Estimate Glomerular Filtration Rate mL/min (>60) Glucose Level 120 MG/DL (74-106) H Lactic Acid Level 2.80 mmol/L (0.4-2.0) H 1.60 mmol/L (0.66-2.22) Calcium Level 8.9 MG/DL (8.5-10.1) Total Bilirubin 0.2 MG/DL (0.2-1.0) Aspartate Amino Transferase (AST) 18 U/L (15-37) Alanine Aminotransferase (ALT) 22 U/L (12-78) Alkaline Phosphatase 67 U/L (46-116) Total Creatine Kinase 78 U/L (26-308) Creatine Kinase MB 0.8 NG/ML (0.0-3.6) Creatine Kinase MB Relative Index 1.0 Troponin I 0.005 ng/mL (0.000-0.056) Total Protein 7.3 G/DL (6.4-8.2) Albumin 3.1 G/DL (3.4-5.0) L Globulin 4.2 g/dL Albumin/Globulin Ratio 0.7 (1.0-2.7) L Urine Color Pale yellow Urine Appearance Clear Urine pH 6 (4.5-8.0) Urine Specific [place] 1.010 (1.005-1.035) Urine Protein Negative (NEGATIVE) Urine Glucose (UA) Negative (NEGATIVE) Urine Ketones Negative (NEGATIVE) Urine Blood Negative (NEGATIVE) Urine Nitrite Negative (NEGATIVE) Urine Bilirubin Negative (NEGATIVE) Urine Urobilinogen Normal MG/DL (0.0-1.0) Urine Leukocyte Esterase Negative (NEGATIVE) Urine RBC 0 /HPF (0 - 2) Urine WBC 0-2 /HPF (0 - 2) Urine Squamous Epithelial Cells Occasional /LPF Urine Bacteria Occasional /HPF (NONE) Microbiology Date/Time Source Procedure Growth Status 03/20/18 10:30 Nasal Nares Influenza Types A,B Antigen (LEDY) - Final Complete EKG Diagnostic Results Rate: normal Rhythm: NSR ST Segments: no acute changes Rhythm Strip Diag. Results EP Interpretation: yes Rate: 80's Rhythm: NSR, no PVC's, other - PAC's Chest X-Ray Diagnostic Results Chest X-Ray Diagnostic Results : Chest X-Ray Ordered: Yes # of Views/Limited/Complete: 1 View Indication: Other EP Interpretation: Yes Interpretation: no consolidation, no effusion, no pneumothorax, no acute cardiopulmonary disease Impression: No acute disease Electronically Signed by: Tiffani Douglass DO Last Vital Signs Date Time Temp Pulse Resp B/P (MAP) Pulse Ox O2 Delivery O2 Flow Rate FiO2 03/20/18 09:49 98.2 85 19 116/55 97 Room Air Status: improved Disposition: HOME, SELF-CARE Condition: Improved Referrals: Magdaleno Villegas MD (PCP) Tiffani Douglass DO Mar 20, 2018 10:38
[2018-03-20 10:47] LABS: BASOPHILS % (AUTO) 0.9 % (0.0-2.0); EOSINOPHILS % (AUTO) 2.7 % (0.0-3.0); HEMOGLOBIN 12.2 G/DL (12.0-16.0); LYMPHOCYTES % (AUTO) 20.5 % (20.0-45.0); MEAN CORPUSCULAR VOLUME 91 FL (80-99); MONOCYTES % (AUTO) 14.5 % (1.0-10.0); NEUTROPHILS % (AUTO) 61.4 % (45.0-75.0); PLATELET COUNT 333 K/UL (150-450); RED BLOOD COUNT 4.05 M/UL (4.20-5.40); RED CELL DISTRIBUTION WIDTH 12.6 % (11.6-14.8); WHITE BLOOD COUNT 4.5 K/UL (4.8-10.8)
[2018-03-20 10:50] LABS: ANION GAP 8 mmol/L (5-15); BLOOD UREA NITROGEN 4 mg/dL (7-18); CALCIUM 8.9 MG/DL (8.5-10.1); CARBON DIOXIDE 29 MMOL/L (21-32); CHLORIDE 99 MMOL/L (98-107); POTASSIUM 3.7 MMOL/L (3.5-5.1); SODIUM 136 MMOL/L (136-145)
[2018-03-20 10:58] VITALS: BP 122/42
--- NOTE | 2018-03-20 11:00 | NUR ---
ED Nurse Note:pt. came with generalized weakness, VSS, A/Ox4 given IV fluids, x-ray and EKG done
[2018-03-20 11:07] LABS: ALANINE AMINOTRANSFERASE 22 U/L (12-78); ALBUMIN 3.1 G/DL (3.4-5.0); ALBUMIN/GLOBULIN RATIO 0.7 (1.0-2.7); ALKALINE PHOSPHATASE 67 U/L (46-116); ASPARTATE AMINO TRANSFERASE 18 U/L (15-37); BILIRUBIN,TOTAL 0.2 MG/DL (0.2-1.0); CKMB 0.8 NG/ML (0.0-3.6); CREATINE KINASE 78 U/L (26-308)
--- NOTE | 2018-03-20 11:12 | NUR ---
ED Nurse Note:called labs to draw blood cultures
--- NOTE | 2018-03-20 11:21 | Diagnostic Imaging Report ---
Indication: Cough Technique: One view of the chest Comparison: 07/28/2017 Findings: No acute infiltrates, effusions, or congestion. Tortuous calcified aorta. Normal heart size. Upper mediastinum unremarkable. Calcified granuloma is seen in the right mid to lower lung periphery. No significant change Impression: No acute process.
[2018-03-20 13:54] VITALS: BP 116/53
[2018-03-20] MEDS ORDERED: traMADol 50mg tab ORAL ONE (14:00)
[2018-03-20 14:11] LABS: APPEARANCE,URINE CLEAR; BILIRUBIN, URINE NEGATIVE (NEGATIVE); COLOR,URINE PALE YELLOW; GLUCOSE, URINE (UA) NEGATIVE (NEGATIVE); KETONES,URINE NEGATIVE (NEGATIVE); LEUKOCYTE ESTERASE ,URINE NEGATIVE (NEGATIVE); NITRITE,URINE NEGATIVE (NEGATIVE); PH,URINE 6 (4.5-8.0); PROTEIN,URINE NEGATIVE (NEGATIVE); UROBILINOGEN,URINE NORMAL MG/DL (0.0-1.0)
--- NOTE | 2018-03-20 14:51 | NUR ---
ED Nurse Note:pt. is resting no signs of distress noted, VSS
[2018-03-20 15:06] VITALS: BP 136/55
[2018-03-20 15:07] VITALS: BP 136/55
--- NOTE | 2018-03-20 15:08 | NUR ---
ED Nurse Note:pt. was cleared for d/c by ER MD, IV line is out, she called her son to pick her up from ER, pt. received d/c instructions and will f/u with PMD after 1 week
--- NOTE | 2018-03-23 11:13 | Cardiology Report ---
APPROVED REPORT EKG Measurement Heart [id number] Sinus rhythm with premature atrial complexes Otherwise normal ECG
[2018-04-02] MEDS ORDERED: REVLIMID20 MG PO (10:54)
[2018-05-01] MEDS ORDERED: INVEGA3 MG PO (10:22)
[2018-05-01] MEDS ORDERED: ZEGERID 20 MG1 EACH ORAL (11:12)
[2018-05-01] MEDS ORDERED: TRAZODONE HCL50 MG ORAL (11:12)
[2018-09-11] MEDS ORDERED: CENTRUM SILVER1 EAC6 PO (11:30)
== END 2018-03-20 15:10 | disposition home or self-care (01) ==
LOC: EMR 10:07
DX: R53.1 Weakness (principal); F32.9 Major depressive disorder, single episode, unspecified; I10 Essential (primary) hypertension; Z86.73 Personal history of transient ischemic attack (TIA), and cerebral infarction without residual deficits; Z85.72 Personal history of non-Hodgkin lymphomas; F03.90 Unspecified dementia, unspecified severity, without behavioral disturbance, psychotic disturbance, mood disturbance, and anxiety; Z88.5 Allergy status to narcotic agent; Z88.6 Allergy status to analgesic agent
CPT/HCPCS: 36415; 71045; 80053; 81001; 82550; 82553; 83605; 84484; 85025; 86710; 87040; 93005; 96360; 99283

== ENCOUNTER 2018-06-08 00:15 | Observation (INO) | payer MEDICARE, OTHER ==
[~2018-06-08] VITALS: Ht 165.1 cm; Wt 77.1 kg
[~2018-06-08 00:15] MED LIST changes: +REVLIMID20 MG PO; +TRAZODONE HCL50 MG ORAL; +ZEGERID 20 MG1 EACH ORAL
[2018-06-08 01:00] VITALS: BP 152/73
--- NOTE | 2018-06-08 01:00 | NUR ---
ED Nurse Note: Patient walk in with caregiver c/o left side chest pain radiating to left arm for 2 hours. Patient also reports back pain. Patient states hx of cancer. Patient AOx4, VSS, ambulatory with steady gait, no s/s of acute distress noted at this time. Patient lung sounds clear in all lobes bilaterally upon ausculation. Patient reports chest pain as stabbing type pain. Patient seen by ZAYD at bedside.
[2018-06-08 01:30] LABS: BASOPHILS % (AUTO) 1.3 % (0.0-2.0); EOSINOPHILS % (AUTO) 1.9 % (0.0-3.0); HEMATOCRIT 37.7 % (37.0-47.0); HEMOGLOBIN 12.3 G/DL (12.0-16.0); LYMPHOCYTES % (AUTO) 28.7 % (20.0-45.0); MEAN CORPUSCULAR VOLUME 89 FL (80-99); MONOCYTES % (AUTO) 10.6 % (1.0-10.0); NEUTROPHILS % (AUTO) 57.5 % (45.0-75.0); PLATELET COUNT 198 K/UL (150-450); RED BLOOD COUNT 4.22 M/UL (4.20-5.40); RED CELL DISTRIBUTION WIDTH 14.1 % (11.6-14.8); WHITE BLOOD COUNT 4.4 K/UL (4.8-10.8)
[2018-06-08 01:40] LABS: APPEARANCE,URINE CLEAR; BILIRUBIN, URINE NEGATIVE (NEGATIVE); COLOR,URINE PALE YELLOW; GLUCOSE, URINE (UA) NEGATIVE (NEGATIVE); KETONES,URINE NEGATIVE (NEGATIVE); LEUKOCYTE ESTERASE ,URINE NEGATIVE (NEGATIVE); NITRITE,URINE NEGATIVE (NEGATIVE); PH,URINE 8 (4.5-8.0); PROTEIN,URINE NEGATIVE (NEGATIVE); UROBILINOGEN,URINE NORMAL MG/DL (0.0-1.0)
--- NOTE | 2018-06-08 01:41 | Diagnostic Imaging Report ---
EXAM: XR Chest, 1 View CLINICAL HISTORY: Chest pain. TECHNIQUE: Frontal view of the chest. COMPARISON: CXR dated 03/20/2018. FINDINGS: Lungs: Stable mild interstitial prominence in the lungs. No new focal consolidation. No overt pulmonary edema. Stable right lung granuloma. Pleural space: No pleural effusion. No pneumothorax. Heart: Unremarkable. No cardiomegaly. Mediastinum: Unremarkable. Bones/joints: Osseous structures appear intact. IMPRESSION: Stable CXR compared to 03/20/2018 with mild interstitial prominence in the lungs. No focal consolidation or pulmonary edema.
[2018-06-08 01:42] LABS: ANION GAP 9 mmol/L (5-15); BLOOD UREA NITROGEN 4 mg/dL (7-18); CALCIUM 9.2 MG/DL (8.5-10.1); CARBON DIOXIDE 28 MMOL/L (21-32); CHLORIDE 101 MMOL/L (98-107); POTASSIUM 3.9 MMOL/L (3.5-5.1); SODIUM 138 MMOL/L (136-145)
[2018-06-08 01:57] LABS: ALANINE AMINOTRANSFERASE 24 U/L (12-78); ALBUMIN 3.4 G/DL (3.4-5.0); ALBUMIN/GLOBULIN RATIO 0.8 (1.0-2.7); ALKALINE PHOSPHATASE 80 U/L (46-116); ASPARTATE AMINO TRANSFERASE 21 U/L (15-37); BILIRUBIN,TOTAL 0.4 MG/DL (0.2-1.0); CKMB 0.9 NG/ML (0.0-3.6); CREATINE KINASE 118 U/L (26-308)
[2018-06-08] MEDS ORDERED: Nitroglycerin Subl 0.4mg tab SL ONE (02:15)
[2018-06-08] MEDS ORDERED: LUMIGAN2.5 ML BOTH EYES (02:26)
[2018-06-08] MEDS ORDERED: REVLIMID20 MG PO (02:26)
--- NOTE | 2018-06-08 03:03 | Emergency Room Report ---
History of Present Illness General Chief Complaint: Chest Pain Source: Patient, Family Member Present Illness HPI 83-year-old female presents ED for evaluation. Brought in by daughter. Patient states she's been having chest pain which started just prior to arrival. Sudden onset. Left-sided, 8 out of 10, dull, nonradiating. Denies shortness of breath. Daughter states that patient was admitted recently at [facility] for chest pain. Patient has history of lymphoma and is currently being treated with chemotherapy at [facility]. Denies fevers or chills. Denies cough. No other aggravating relieving factors. Denies any other associated symptoms Allergies: Coded Allergies: CODEINE (Verified Allergy, Severe, BREAKS OUT IN BUMPS, SWELLING, 10/13/12) IBUPROFEN (Verified Adverse Reaction, Unknown, GI UPSET / VOMITTING, ) Uncoded Allergies: MOLTRIN (Allergy, Unknown, RASH,NAUSEA, 02/24/16) Patient History Past Medical History: HTN, CVA/TIA, dementia, other - lymphoma Past Surgical History: none Pertinent Family History: none Social History: Denies: smoking, alcohol use, drug use Now: No Immunizations: UTD Reviewed Nursing Documentation: PMH: Agreed; PSxH: Agreed Nursing Documentation-PMH Hx Cardiac Problems: Yes - chest pain Hx Hypertension: Yes Hx Pacemaker: No Hx Asthma: No Hx COPD: No Hx Diabetes: No Hx Cancer: Yes - LYMPHOMA Hx Dialysis: No Hx Neurological Problems: Yes Hx Cerebrovascular Accident: Yes - 2010 Hx Dementia: Yes Hx Seizures: No Hx Speech Problem: Yes Hx Dizziness: Yes Hx Headaches: Yes Hx Fatigue: Yes Review of Systems All Other Systems: negative except mentioned in HPI Physical Exam Vital Signs Date Time Temp Pulse Resp B/P (MAP) Pulse Ox O2 Delivery O2 Flow Rate FiO2 06/08/18 00:23 98.4 86 20 152/73 97 Room Air Sp02 EP Interpretation: reviewed, normal General Appearance: no apparent distress, alert, GCS 15, non-toxic Head: normocephalic, atraumatic Eyes: bilateral eye normal inspection, bilateral eye PERRL ENT: hearing grossly normal, normal pharynx, no angioedema, normal voice Neck: full range of motion, supple/symm/no masses Respiratory: chest non-tender, lungs clear, normal breath sounds, speaking full sentences Cardiovascular #1: regular rate, rhythm, no edema Cardiovascular #2: 2+ carotid (R), 2+ carotid (L), 2+ radial (R), 2+ radial (L) , 2+ dorsalis pedis (R), 2+ dorsalis pedis (L) Gastrointestinal: normal bowel sounds, non tender, soft, non-distended, no guarding, no rebound Rectal: deferred Genitourinary: normal inspection, no CVA tenderness Musculoskeletal: back normal, gait/station normal, normal range of motion, non- tender Neurologic: alert, oriented x3, responsive, motor strength/tone normal, sensory intact, speech normal Psychiatric: judgement/insight normal, memory normal, mood/affect normal, no suicidal/homicidal ideation Reflexes: 3+ bicep (R), 3+ bicep (L), 3+ tricep (R), 3+ tricep (L), 3+ knee (R) , 3+ knee (L) Skin: normal color, no rash, warm/dry, well hydrated Lymphatic: no adenopathy Medical Decision Making Diagnostic Impression: Primary Impression: ACS (acute coronary syndrome) ER Course Hospital Course 83 yo F presents with chest pain Differential diagnoses include: FL/unstable angina, contusion, muscle strain, PTX, rib fracture Clinical course Patient placed on stretcher. on athletic monitor. After initial history and physical I ordered labs, EKG, chest x-ray, NTG Patient has difficult IV access. I placed peripheral EJ line labs reviewed- no leukocytosis, hb/hct stable, electrolytes ok, trop x 1 negative EKG - NSR, no acute ischemic changes intepreted by me Chest x-ray- no acute process Chest pain improved after nitroglycerin. Given cardiac risk factors patient will be admitted to OBS Case discussed with Dr. Villegas and he agreed to accept the patient to his service for further care and support I. I feel this is a highly complex case requiring extensive working including EKG/Rhythm strip, Xray/CT/US, Blood/urine lab work, repeat exams while in ED, and administration of strong opiates/narcotics for pain control, admission to hospital or close patient follow up. Diagnosis - ACS admitted to telemetry OBS in serious condition Labs Test 06/08/18 01:20 06/08/18 01:36 White Blood Count 4.4 K/UL (4.8-10.8) Red Blood Count 4.22 M/UL (4.20-5.40) Hemoglobin 12.3 G/DL (12.0-16.0) Hematocrit 37.7 % (37.0-47.0) Mean Corpuscular Volume 89 FL (80-99) Mean Corpuscular Hemoglobin 29.1 PG (27.0-31.0) Mean Corpuscular Hemoglobin Concent 32.6 G/DL (32.0-36.0) Red Cell Distribution Width 14.1 % (11.6-14.8) Platelet Count 198 K/UL (150-450) Mean Platelet Volume 6.1 FL (6.5-10.1) Neutrophils (%) (Auto) 57.5 % (45.0-75.0) Lymphocytes (%) (Auto) 28.7 % (20.0-45.0) Monocytes (%) (Auto) 10.6 % (1.0-10.0) Eosinophils (%) (Auto) 1.9 % (0.0-3.0) Basophils (%) (Auto) 1.3 % (0.0-2.0) Sodium Level 138 MMOL/L (136-145) Potassium Level 3.9 MMOL/L (3.5-5.1) Chloride Level 101 MMOL/L (98-107) Carbon Dioxide Level 28 MMOL/L (21-32) Anion Gap 9 mmol/L (5-15) Blood Urea Nitrogen 4 mg/dL (7-18) Creatinine 1.0 MG/DL (0.55-1.30) Estimat Glomerular Filtration Rate mL/min (>60) Glucose Level 96 MG/DL (74-106) Calcium Level 9.2 MG/DL (8.5-10.1) Total Bilirubin 0.4 MG/DL (0.2-1.0) Aspartate Amino Transf (AST/SGOT) 21 U/L (15-37) Alanine Aminotransferase (ALT/SGPT) 24 U/L (12-78) Alkaline Phosphatase 80 U/L (46-116) Total Creatine Kinase 118 U/L (26-308) Creatine Kinase MB 0.9 NG/ML (0.0-3.6) Creatine Kinase MB Relative Index 0.7 Troponin I 0.017 ng/mL (0.000-0.056) Pro-B-Type Natriuretic Peptide 169 pg/mL (0-125) Total Protein 7.8 G/DL (6.4-8.2) Albumin 3.4 G/DL (3.4-5.0) Globulin 4.4 g/dL Albumin/Globulin Ratio 0.8 (1.0-2.7) Urine Color Pale yellow Urine Appearance Clear Urine pH 8 (4.5-8.0) Urine Specific [place] 1.010 (1.005-1.035) Urine Protein Negative (NEGATIVE) Urine Glucose (UA) Negative (NEGATIVE) Urine Ketones Negative (NEGATIVE) Urine Blood 1+ (NEGATIVE) Urine Nitrite Negative (NEGATIVE) Urine Bilirubin Negative (NEGATIVE) Urine Urobilinogen Normal MG/DL (0.0-1.0) Urine Leukocyte Esterase Negative (NEGATIVE) Urine RBC 0-2 /HPF (0 - 2) Urine WBC 0-2 /HPF (0 - 2) Urine Squamous Epithelial Cells Occasional /LPF Urine Bacteria Occasional /HPF (NONE) EKG Diagnostic Results Rate: normal Rhythm: NSR ST Segments: no acute changes ASA given to the pt in ED: No Rhythm Strip Diag. Results EP Interpretation: yes Rhythm: NSR, no PVC's, no ectopy Chest X-Ray Diagnostic Results Chest X-Ray Diagnostic Results : Chest X-Ray Ordered: Yes # of Views/Limited/Complete: 1 View Indication: Chest Pain EP Interpretation: Yes Interpretation: no consolidation, no effusion, no pneumothorax, no acute cardiopulmonary disease Impression: No acute disease Electronically Signed by: Electronically signed by Gennaro Jaquez MD Last Vital Signs Date Time Temp Pulse Resp B/P (MAP) Pulse Ox O2 Delivery O2 Flow Rate FiO2 06/08/18 02:12 130/47 06/08/18 01:00 98.4 86 20 97 Room Air Status: improved Disposition: ADMITTED INPATIENT Condition: Serious Referrals: Magdaleno Villegas MD (PCP) Gennaro Jaquez MD Jun 08, 2018 03:03
[2018-06-08 03:30] VITALS: BP 133/59
--- NOTE | 2018-06-08 03:30 | NUR ---
ED Nurse Note: Patient transferred to telemetry unit. Patient transferred on rranier, connected to cardiac sonographer, by solid waste landfill technician and staff submarine warfare officer. Patient AOx4, VSS, ambulatory with steady gait, no s/s of acute distress noted at this time. Patient tolerated transfer well. Patient sent with all personal belongings. Patient report given to Corey SOLIS at bedside.
--- NOTE | 2018-06-08 03:50 | NUR ---
NURSE NOTES: Received patient from WILL Palomino from ED via filippo. Patient awake showing no signs of acute distress. AOx4. Respiration even and non labored on room air. No SOB noted. Patient c/o of pain on back, chest radiating on L ARM. ED nurse stated that pt.'s been complaining about the pain and received a dose of NTG. VS stable. Pt. oriented to room and unit. monitoring and evaluation advisor is attached showing SR. Call light within reach. Bed in lowest position. Bed alarm on, and wheels locked. Called primary Dr. Villegas for admission order. Awaiting call back.
[2018-06-08 04:00] VITALS: BP 123/54
--- NOTE | 2018-06-08 04:37 | NUR ---
NURSE NOTES: Received admission orders from Dr. Villegas. Noted and carried out.
[2018-06-08] MEDS ORDERED: Acetaminophen 500mg (ES) tab ORAL PRN (04:45)
[2018-06-08] MEDS: traMADol 50mg tab ORAL PRN ×3 (06:09→09:39)
--- NOTE | 2018-06-08 07:29 | NUR ---
HAND-OFF: Report given to WILL Heard.
--- NOTE | 2018-06-08 07:30 | NUR ---
NURSE NOTES: Received report from WILL Simpson. Pt is resting in the bed in semi-stiles position. A&O x4. Breathing unlabored in room air. IV site is asymptomatic and patent. No signs and symptoms of acute distress noted at this time. Bed in lowest position with 2 side rails up, breaks are engaged. Call light , and side table are within reach. Will continue to monitor.
[2018-06-08 08:00] VITALS: BP 139/51
[2018-06-08] MEDS ORDERED: Aspirin EC 81mg tab ORAL SCH (09:00)
[2018-06-08] MEDS ORDERED: BusPIRone 5mg Tab ORAL SCH (09:00)
[2018-06-08] MEDS ORDERED: Vitamin D 1000 IU Tab ORAL SCH (09:00)
[2018-06-08] MEDS ORDERED: DULoxetine 30mg cap ORAL SCH ×2 (09:00)
[2018-06-08] MEDS ORDERED: Cosopt Opth Soln 10 mL Btl BOTH EYES SCH (09:00)
[2018-06-08] MEDS ORDERED: Furosemide 40mg tab ORAL SCH (09:00)
--- NOTE | 2018-06-08 11:51 | History & Physical ---
History and Physical History & Physicial Observation Status. Date of Admission: June 08, 2018. Date of Discharge: June 08, 2018. Patient Identification: Ms. Livingston is 83 y/o woman presenting with severe left chest pain, with radiation down the left arm. Initial Troponin was normal. Patient placed on observation because of unclear etiology in Emergency Department. History of Present Illness: Ms. 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 When seen the patient herself describes obtain in her left chest radiating down her left arm. She had previously complained of similar type pains and had been treated with a combination of Cymbalta and tramadol. The patient brought some of her medications with her, and these included a bottle of tramadol. She was asked whether she had tried taking the tramadol, and she reported it she had thought that her pain might have represented abdominal gas, and therefore she did not feel she should take the tramadol. However she admitted after receiving the tramadol rhythm earlier in the morning from the nurse, her pain had responded and resolved. The patient appeared somewhat disorganized and guarded. She had a great deal of difficulty describing specifically what her symptoms were, and whether she had taken medications for the symptoms. Subsequent history was obtained from the patient's daughter and her caregiver. Apparently she been noted to have hyponatremia, and presented to the emergency room at [facility]. She was subsequently admitted there. Although the patient may in fact have been taking her various medications inaccurately, and her hyponatremia may have been part been due to her medications she apparently been instructed to stop her benztropine, her buspirone, her duloxetine, her paliperidone, her temazepam, and her tramadol without any tapering. Obviously there is Miki was at significant risk for a SSRI discontinuation syndrome, as well as reactivation of her psychotic schizoaffective or manic disease. In fact some of the patient's confusion, and disorganization, may have been attributable to either discontinuation syndrome or recurrence of psychosis. In any event, the staff reported that Ms. Livingston had eaten well, and taken her medications, with no evidence of significant discomfort or other symptomatology. Past Medical History: 1. 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 2. Follicular lymphoma, s/p chemotherapy, with course of Revlimid completed in prior week. 3. Prior episode of mild hyponatremia, resolved. Etiology secondary to psychiatric medications versus psychogenic polydipsia versus volume depletion. 4. Mild cognitive impairment. 5. History of syncope, felt to be vasovagal associated with volume depletion. 6. History of rhabdomyolysis associated with fall. 7. Prior episodes of electrolyte disorder with hyponatremia and hypokalemia. 8. Episode of transient left hemiparesis without evidence of focal neurologic findings secondary to mechanical injury. 9. Gait instability. 10. Glaucoma. 11. Venous insufficiency with episodic dependent edema. 12. Obesity. 13. Osteoarthritis. 14. Osteoporosis. 15. Vitamin D deficiency. 16. 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 17. Status post cholecystectomy for biliary colic. 18. Urinary frequency. 19. Status post hysterectomy. 20. History of left breast lipoma resection. 21. Status post tonsillectomy and adenoidectomy. 22. Status post bladder suspension with episodic urinary incontinence. 23. Status post soft tissue resection from right arm. 24. Status post Bartholin's abscess drainage with recurrent vaginolabial abscesses. Medications: 1. Revlimid 20mg, recently discontinued. 2. Mirtazapine 15 mg nightly. 3. Lumigan 0.01% 1 drop OU nightly. 4. Cosopt 2/0.5% 1 drop OU twice daily. 5. Toviaz 8 mg daily. 6. Lasix 40 mg daily. 7. Potassium chloride 10 mEq twice daily. 8. Aspirin 81 mg daily. 9. Loratadine 10 mg daily. Allergies: Reportedly intolerances to ibuprofen and codeine. Social History: Patient reportedly lives in an apartment with assistance from her daughter and with a part-time caregiver. 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 There was a history of smoking and alcohol use over 30 years ago. Family History: Not directly contributory at this time. Review of Systems: As stated before, Ms. Livingston is somewhat disorganized and guarded. As a result her ability to answer questions about her symptoms is somewhat limited. Currently she does describe discomfort in the left upper chest and shoulder radiating down the left arm. However on discussion and with manipulation of the arm it becomes more apparent that the symptoms may have been historical and may have resolved with the administration of the tramadol. She denies new focal neurologic deficits. She denies any problems with her breathing, mid chest pain, palpitations. She currently denies abdominal discomfort and reports that her bowels and bladder are per baseline. Later discussion with the patient's caregiver reveals that she did note that patient was becoming somewhat more anxious and paranoid in the last few days. Physical Examination: Blood pressure 139/51. Heart rate 72 and regular. Respiratory rate 22. Temperature 98.3. Oxygen saturation 98% on room air. Head and neck: Normocephalic atraumatic. Sclerae anicteric. Oropharynx slightly dry. Neck range of motion normal. No cervical masses noted. Chest: Distant but clear breath sounds with no wheezes. Cardiac: Regular rhythm without gallops murmurs or rubs appreciated. Abdomen: Normal bowel sounds, soft, nontender, without masses or organomegaly appreciated. Nodes: No adenopathy appreciated. Extremities: Possible trace distal edema. Moderate changes of chronic degenerative joint disease without acute synovitis. Range of motion functionally normal. Neurologic: No overt focal deficits. Mental status somewhat slowed and disorganized compared to baseline. Affect: Mildly guarded, but not overtly paranoid. Laboratory Data: WBC 4.4 with relatively normal differential. Hematocrit 37.7%, MCV 89, platelet count 198. Sodium 138, potassium 3.9, chloride 101, carbon dioxide 28 , BUN 4, creatinine 1.0, glucose 96, calcium 9.2, total bilirubin 0.4, AST 21, ALT 24, alkaline phosphatase 80, total CK 118, MB 0.9, troponin 0 0.01 7 repeat 0.017, proBNP 169, total protein 7.8 albumin 3.4. Urinalysis with 0-2 RBCs and 0-2 WBCs. Chest x-ray with mild interstitial prominence and no acute changes compared to March 20, 2018. Electrocardiogram with normal sinus rhythm, possible left atrial enlargement. Impression/Plan: 1. Atypical chest pain, not likely cardiac in etiology, with normal CK and troponin values. The pain is likely musculoskeletal in nature, with a possible component of neuropathy or chronic degenerative changes. Symptoms appear to be exaggerated by an increased level of anxiety and possible paranoia. 2. Probable elements of mild SSRI discontinuation syndrome and/or paranoid psychosis prompted by rapid discontinuation of SSRIs and antipsychotics. Given the patient's long history of paranoid psychosis, and depressive symptomatology it appears unlikely that this patient could be discontinued off her psychiatric medications are rapidly. Patient probably was taking some redundant medications and therefore the patient was placed on Cymbalta 30 mg daily, and in Al 3 mg daily along with benztropine 1 mg twice daily. 3. Patient's prior hyponatremia is not unlikely to been associated with her psychiatric medications since she has tolerated these medications and similar doses for many years. In the past a prior episode of hyponatremia appeared to be precipitated either by water intoxication or mild dehydration. It seems likely that the recent episode of hyponatremia may have been triggered by excessive water drinking according to the history given by the patient's caregiver and may actually represent an exacerbation of her psychotic symptoms. She has been asked to follow-up with Dr. Carpenter with regard to her psychiatric symptoms in the near future. 4. Patient's situation was discussed with Dr. Vivas. She is scheduled to undergo a PET scan and/or CT scan to further evaluate the control of her lymphoma. This may also shed some light on whether there is a mechanical reason associated with the patient's left chest and arm symptomatology such as cervical adenopathy or axillary adenopathy which is not apparent on physical examination. 5. Patient's other medications will be continued. Follow-up laboratories will be obtained as an outpatient. The patient is discharged to home under the care of her caregiver and daughter. Magdaleno Villegas MD Jun 08, 2018 11:51
[2018-06-08 12:00] VITALS: BP 137/59
[2018-06-08 13:02] VITALS: BP 137/59
--- NOTE | 2018-06-08 13:25 | NUR ---
NURSE NOTES: Patient discharged home, self care per Dr. Villegas's order. All discharge instructions explained to Patient's primary child care team lead and patient, they verbalized understanding. Heart monitor removed and returned to court recording monitor, IV removed, ID bend removed and placed in shredder. Patient went home in stable condition and with her budget specialist.
[2018-06-08] MEDS ORDERED: TraZODone 50mg tab ORAL SCH (21:00)
[2018-06-08] MEDS ORDERED: Donepezil 10mg tab ORAL SCH (21:00)
--- NOTE | 2018-06-10 18:26 | Cardiology Report ---
APPROVED REPORT EKG Measurement Heart [id number] MN [id number] Normal sinus rhythm Possible Left atrial enlargement Borderline ECG
--- NOTE | 2018-06-12 19:00 | Reflections ---
06/12/2018 SUBJECTIVE: The patient is pleasant, calm, and cooperative with interview. Follows directions. Denies any new complaints. The patient is not showing any signs of psychosis or depression. She is compliant with her medications. Denies any side effects. MENTAL STATUS EVALUATION: Alert and oriented to self and situation. Mood is anxious. Affect is appropriate. Thought process is linear. Cognition is intact. Impulse control, insight, and judgment is fair. DIAGNOSIS: Schizoaffective disorder. PLAN: Continue with current management. Continue to monitor symptoms and behavior. Medications reviewed. Chart reviewed. Case discussed with staff. Onesimo Carpenter M.D. DR: KATELYNN JOB#: [id number] CC: LAZARO
== END 2018-06-08 13:25 | disposition home or self-care (01) ==
LOC: EMR 00:45 → 2E 00:57 → INTOOBSV 00:57 → EDBEDREQ 01:08
DX: R07.9 Chest pain, unspecified (principal); I10 Essential (primary) hypertension; F03.90 Unspecified dementia, unspecified severity, without behavioral disturbance, psychotic disturbance, mood disturbance, and anxiety; I24.9 Acute ischemic heart disease, unspecified; E87.1 Hypo-osmolality and hyponatremia; M81.0 Age-related osteoporosis without current pathological fracture; M19.90 Unspecified osteoarthritis, unspecified site; G81.94 Hemiplegia, unspecified affecting left nondominant side; C82.90 Follicular lymphoma, unspecified, unspecified site; F41.9 Anxiety disorder, unspecified; F25.9 Schizoaffective disorder, unspecified; Z90.49 Acquired absence of other specified parts of digestive tract; Z90.710 Acquired absence of both cervix and uterus; Z79.82 Long term (current) use of aspirin; Z79.899 Other long term (current) drug therapy; Z87.891 Personal history of nicotine dependence; Z88.6 Allergy status to analgesic agent; Z88.8 Allergy status to other drugs, medicaments and biological substances; Z86.73 Personal history of transient ischemic attack (TIA), and cerebral infarction without residual deficits; Z85.9 Personal history of malignant neoplasm, unspecified
CPT/HCPCS: 36415; 71045; 80053; 81003; 82550; 82553; 83880; 84484; 85025; 93005; 99284; G0378 ×2; J7040

== ENCOUNTER 2018-06-18 11:24 | Emergency (ER) | payer MEDICARE, OTHER ==
[~2018-06-18] VITALS: Ht 165.1 cm; Wt 81.2 kg
[2018-06-18 11:57] VITALS: BP 130/78
--- NOTE | 2018-06-18 11:57 | NUR ---
ED Nurse Note:pt. was brought in by aisha with c/o left sided head injury and pain since saturday, ambulatory, A/Ox3-4
--- NOTE | 2018-06-18 12:14 | NUR ---
ED Nurse Note:pt. had CT head done, pain med is given
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
[2018-06-18 12:53] VITALS: BP 127/51
[2018-06-18] MEDS ORDERED: TYLENOL EXTRA500 MG ORAL (13:01)
[2018-06-18 13:05] VITALS: BP 127/51
--- NOTE | 2018-06-18 13:07 | NUR ---
ED Nurse Note:called pt's caregiver to pick her up
--- NOTE | 2018-06-18 13:28 | NUR ---
ED Nurse Note:pt. was cleared for d/c by ER she received d/c instructions with prescription and was taken home by her caregiver
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
== END 2018-06-18 13:35 | disposition home or self-care (01) ==
LOC: EMR 11:59
DX: R51 Headache (principal); F25.9 Schizoaffective disorder, unspecified; Z88.6 Allergy status to analgesic agent; I10 Essential (primary) hypertension; Z86.73 Personal history of transient ischemic attack (TIA), and cerebral infarction without residual deficits; F03.90 Unspecified dementia, unspecified severity, without behavioral disturbance, psychotic disturbance, mood disturbance, and anxiety; Z85.72 Personal history of non-Hodgkin lymphomas
CPT/HCPCS: 70450; 99284

== ENCOUNTER 2018-10-11 17:26 | Emergency (ER) | payer MEDICARE, OTHER ==
[~2018-10-11] VITALS: Ht 165.1 cm; Wt 77.1 kg
[~2018-10-11 17:26] MED LIST changes: +CENTRUM SILVER1 EAC6 PO
[2018-10-11 17:50] VITALS: BP 144/72
--- NOTE | 2018-10-11 18:00 | NUR ---
ED Nurse Note: Patient walked into ED from home with her daughter c/o headache for 5 months. patient reports she takes tramadol for pain and she ran out of tramadol. Pt rates pain at 10/10. ERMD at bedside
[2018-10-11] MEDS ORDERED: Acetaminophen 500mg (ES) tab ORAL ONE (18:15)
[2018-10-11 18:30] VITALS: BP 144/72
--- NOTE | 2018-10-12 14:28 | Emergency Room Report ---
History of Present Illness General Chief Complaint: Headache Source: Patient, Family Member, Medical Record Present Illness HPI 83-year-old female presents ED for evaluation. complaining of headache. Frontal, 8 out of 10, radiating. Denies photophobia or blurry vision. Denies nausea or vomiting. Denies neck stiffness. States she has had this headache for many years now. Daughter at bedside. States that she takes tramadol for the pain but ran out. She complains that someone is stealing her medication. Daughter states that stealing her medication and believes that patient is taking too much. PMD is Dr. Magdaleno Villegas. No other aggravating relieving factors. Denies any other associated symptoms Allergies: Coded Allergies: CODEINE (Verified Allergy, Severe, BREAKS OUT IN BUMPS, SWELLING, 10/13/12) IBUPROFEN (Verified Adverse Reaction, Unknown, GI UPSET / VOMITTING, ) Uncoded Allergies: MOLTRIN (Allergy, Unknown, RASH,NAUSEA, 02/24/16) Patient History Past Medical History: HTN, CVA/TIA, dementia Past Surgical History: none Pertinent Family History: none Social History: Denies: smoking, alcohol use, drug use Last Menstrual Period: N/A Now: No : 6 Para: 4 Immunizations: UTD Reviewed Nursing Documentation: PMH: Agreed; PSxH: Agreed Nursing Documentation-PMH Hx Cardiac Problems: Yes - chest pain Hx Hypertension: Yes Hx Pacemaker: No Hx Asthma: No Hx COPD: No Hx Diabetes: No Hx Cancer: Yes - Lymphoma Hx Dialysis: No Hx Cerebrovascular Accident: Yes - 2010 Hx Dementia: Yes Hx Seizures: No Hx Speech Problem: Yes Hx Dizziness: Yes Hx Headaches: Yes Hx Fatigue: Yes Review of Systems All Other Systems: negative except mentioned in HPI Physical Exam Vital Signs Date Time Temp Pulse Resp B/P (MAP) Pulse Ox O2 Delivery O2 Flow Rate FiO2 10/11/18 17:50 99.0 76 15 144/72 96 Room Air Sp02 EP Interpretation: reviewed, normal General Appearance: no apparent distress, alert, GCS 15, non-toxic Head: normocephalic, atraumatic Eyes: bilateral eye normal inspection, bilateral eye PERRL ENT: hearing grossly normal, normal pharynx, no angioedema, normal voice Neck: full range of motion, supple/symm/no masses Respiratory: chest non-tender, lungs clear, normal breath sounds, speaking full sentences Cardiovascular #1: regular rate, rhythm, no edema Cardiovascular #2: 2+ carotid (R), 2+ carotid (L), 2+ radial (R), 2+ radial (L) , 2+ dorsalis pedis (R), 2+ dorsalis pedis (L) Gastrointestinal: normal bowel sounds, non tender, soft, non-distended, no guarding, no rebound Rectal: deferred Genitourinary: normal inspection, no CVA tenderness Musculoskeletal: back normal, gait/station normal, normal range of motion, non- tender Neurologic: alert, oriented x3, responsive, motor strength/tone normal, sensory intact, speech normal Psychiatric: judgement/insight normal, memory normal, mood/affect normal, no suicidal/homicidal ideation Reflexes: 3+ bicep (R), 3+ bicep (L), 3+ tricep (R), 3+ tricep (L), 3+ knee (R) , 3+ knee (L) Skin: normal color Lymphatic: no adenopathy Medical Decision Making Diagnostic Impression: Primary Impression: Headache Qualified Codes: R51 - Headache Additional Impression: Opiate dependence Qualified Codes: F11.29 - Opioid dependence with unspecified opioid-induced disorder ER Course Hospital Course 83 yo F presents to ED c/o headache x 5 years. Differential diagnoses include: tension headache, migraine, dehydration, intracranial bleed Clinical course Patient placed on stretcher. After initial history, physical exam reveals elderly female in no acute distress. No focal neurological deficits. No nuchal rigidity. Remainder of exam unremarkable. Vitals stable. I reviewed CURES; received tramadol prescription on 09/29 for 60 tablets. Patient has run out of her medication in 12 days. Daughter states that patient often says that people are taking her medication. I have seen this patient in the past with similar presentation. Plan to the patient that I cannot provide her with additional medication. I agreed to provide her with Tylenol here but states that she does not want a prescription for Tylenol. daughter agrees with plan. Discussed case wtih Dr Villegas and he agrees with plan. i. I feel this is a highly complex case requiring extensive working including EKG/Rhythm strip, Xray/CT/US, Blood/urine lab work, repeat exams while in ED, and administration of strong opiates/narcotics for pain control, admission to hospital or close patient follow up. Diagnosis - headache, opiate dependence stable and discharged to home. f/up with PMD. return to ED if symptoms recur/ worsen. Last Vital Signs Date Time Temp Pulse Resp B/P (MAP) Pulse Ox O2 Delivery O2 Flow Rate FiO2 10/11/18 17:50 99.0 76 15 144/72 (96) 96 Room Air Status: improved Disposition: HOME, SELF-CARE Condition: Improved Patient Instructions: General Headache Without Cause Gennaro Jaquez MD Oct 12, 2018 14:28
== END 2018-10-11 18:30 | disposition home or self-care (01) ==
LOC: EMR 18:30
DX: R51 Headache (principal); F11.29 Opioid dependence with unspecified opioid-induced disorder; I10 Essential (primary) hypertension; Z86.73 Personal history of transient ischemic attack (TIA), and cerebral infarction without residual deficits; F03.90 Unspecified dementia, unspecified severity, without behavioral disturbance, psychotic disturbance, mood disturbance, and anxiety; Z88.6 Allergy status to analgesic agent
CPT/HCPCS: 99282

== ENCOUNTER 2018-11-22 18:54 | Inpatient (IN) | payer MEDICARE, OTHER ==
[~2018-11-22] VITALS: Ht 165.1 cm; Wt 82.3 kg
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
--- NOTE | 2018-11-22 19:39 | Emergency Room Report ---
History of Present Illness General Chief Complaint: Multiple Trauma/Fall Source: Patient Present Illness HPI Patient is an 83-year-old female who presented after increased generalized weakness and increased falling at home. Patient reportedly had fallen on Saturday. She was again found on the floor today. Patient had increased pain to both knees as well as to her left shoulder. She denies any fever or significant neck pain. She had not been having any increased vomiting or diarrhea. She had some prior history of psychiatric disease and normally gets injections for medications for stabilization of psychiatric disease. Allergies: Coded Allergies: CODEINE (Verified Allergy, Severe, BREAKS OUT IN BUMPS, SWELLING, 10/13/12) IBUPROFEN (Verified Adverse Reaction, Unknown, GI UPSET / VOMITTING, ) Uncoded Allergies: MOLTRIN (Allergy, Unknown, RASH,NAUSEA, 02/24/16) Patient History Past Medical History: see triage record Reviewed Nursing Documentation: PMH: Agreed; PSxH: Agreed Nursing Documentation-PMH Past Medical History: No History, Except For Hx Cardiac Problems: Yes - chest pain Hx Hypertension: Yes Hx Pacemaker: No Hx Asthma: No Hx COPD: No Hx Diabetes: No Hx Cancer: Yes - Lymphoma Hx Dialysis: No Hx Cerebrovascular Accident: Yes - 2010 Hx Dementia: Yes Hx Seizures: No Hx Speech Problem: Yes Hx Dizziness: Yes Hx Headaches: Yes Hx Fatigue: Yes Review of Systems All Other Systems: negative except mentioned in HPI Physical Exam Vital Signs Date Time Temp Pulse Resp B/P (MAP) Pulse Ox O2 Delivery O2 Flow Rate FiO2 11/22/18 18:59 99.0 71 20 125/53 (77) 96 Room Air Sp02 EP Interpretation: reviewed, normal General Appearance: no apparent distress, alert, Chronically Ill Eyes: bilateral eye other - right eye subconjunctival hemorrhage ENT: normal ENT inspection, hearing grossly normal, normal voice Neck: normal inspection, full range of motion, supple, no bony tend Respiratory: normal inspection, lungs clear, normal breath sounds, no respiratory distress, no retraction, no wheezing Cardiovascular #1: regular rate, rhythm Gastrointestinal: normal inspection, normal bowel sounds, non tender, soft, no guarding, no hernia Genitourinary: no CVA tenderness Musculoskeletal: back normal, decreased range of motion - bilateral knee swelling, left shoulder tenderness Neurologic: normal inspection, alert, responsive, speech normal Psychiatric: normal inspection, judgement/insight normal, mood/affect normal Skin: other - multiple areas of soft tissue swelling Medical Decision Making Diagnostic Impression: Primary Impression: Recurrent falls Additional Impressions: Gait difficulty Contusion of face Bilateral knee swelling Shoulder pain, left ER Course Patient presented for multiple falls. Differential diagnosis included but was not limited to intracranial hemorrhage, cva, myopathy, orthostatic hypotension, hyponatremia, vertigo among others. Patient was noted to have a complex medical condition. Imaging studies and laboratory testing were ordered. Patient was noted to be awake and alert and conversing normally. She was noted to have bilateral knee soft tissue swelling and decreased ROM. CT Head read by radiology showed no acute intracranial hemorrhage or fracture. CT Cspine showed degenerative changes without fracture. See radiology reports for full details. Bilateral knee xrays showed no evident fracture. Left shoulder Xray showed no acute fracture. Labs were notable for mild hypokalemia and elevated BNP. Patient was given acetaminophen for pain. Dr. Magdaleno Villegas was contacted for inpatient management due to primary care physician. Labs Test 11/22/18 20:00 11/22/18 21:50 White Blood Count 8.5 K/UL (4.8-10.8) Red Blood Count 3.63 M/UL (4.20-5.40) Hemoglobin 11.3 G/DL (12.0-16.0) Hematocrit 33.1 % (37.0-47.0) Mean Corpuscular Volume 91 FL (80-99) Mean Corpuscular Hemoglobin 31.1 PG (27.0-31.0) Mean Corpuscular Hemoglobin Concent 34.2 G/DL (32.0-36.0) Red Cell Distribution Width 11.6 % (11.6-14.8) Platelet Count 254 K/UL (150-450) Mean Platelet Volume 5.1 FL (6.5-10.1) Neutrophils (%) (Auto) 83.8 % (45.0-75.0) Lymphocytes (%) (Auto) 7.0 % (20.0-45.0) Monocytes (%) (Auto) 8.6 % (1.0-10.0) Eosinophils (%) (Auto) 0.1 % (0.0-3.0) Basophils (%) (Auto) 0.5 % (0.0-2.0) Prothrombin Time 12.4 SEC (9.30-11.50) Prothromb Time International Ratio 1.2 (0.9-1.1) Activated Partial Thromboplast Time 31 SEC (23-33) Sodium Level 136 MMOL/L (136-145) Potassium Level 3.3 MMOL/L (3.5-5.1) Chloride Level 98 MMOL/L (98-107) Carbon Dioxide Level 30 MMOL/L (21-32) Anion Gap 8 mmol/L (5-15) Blood Urea Nitrogen 8 mg/dL (7-18) Creatinine 0.7 MG/DL (0.55-1.30) Estimat Glomerular Filtration Rate mL/min (>60) Glucose Level 113 MG/DL (74-106) Calcium Level 8.5 MG/DL (8.5-10.1) Total Bilirubin 0.7 MG/DL (0.2-1.0) Aspartate Amino Transf (AST/SGOT) 56 U/L (15-37) Alanine Aminotransferase (ALT/SGPT) 41 U/L (12-78) Alkaline Phosphatase 70 U/L (46-116) Troponin I 0.009 ng/mL (0.000-0.056) Pro-B-Type Natriuretic Peptide 811 pg/mL (0-125) Total Protein 6.3 G/DL (6.4-8.2) Albumin 3.1 G/DL (3.4-5.0) Globulin 3.2 g/dL Albumin/Globulin Ratio 1.0 (1.0-2.7) Thyroid Stimulating Hormone (TSH) 0.862 uiU/mL (0.358-3.740) Urine Color Pale yellow Urine Appearance Clear Urine pH 6 (4.5-8.0) Urine Specific [place] 1.010 (1.005-1.035) Urine Protein Negative (NEGATIVE) Urine Glucose (UA) Negative (NEGATIVE) Urine Ketones 3+ (NEGATIVE) Urine Blood 1+ (NEGATIVE) Urine Nitrite Negative (NEGATIVE) Urine Bilirubin Negative (NEGATIVE) Urine Urobilinogen Normal MG/DL (0.0-1.0) Urine Leukocyte Esterase Negative (NEGATIVE) Urine RBC 2-4 /HPF (0 - 2) Urine WBC 0-2 /HPF (0 - 2) Urine Squamous Epithelial Cells Occasional /LPF Urine Bacteria Few /HPF (NONE) EKG Diagnostic Results Rate: normal - 70 Rhythm: NSR ST Segments: no acute changes Last Vital Signs Date Time Temp Pulse Resp B/P (MAP) Pulse Ox O2 Delivery O2 Flow Rate FiO2 11/22/18 18:59 99.0 71 20 125/53 (77) 96 Room Air Status: unchanged Disposition: ADMITTED INPATIENT Condition: Stable Galdino Hernandez MD Nov 22, 2018 19:39
[2018-11-22 20:28] LABS: BASOPHILS % (AUTO) 0.5 % (0.0-2.0); EOSINOPHILS % (AUTO) 0.1 % (0.0-3.0); HEMATOCRIT 33.1 % (37.0-47.0); HEMOGLOBIN 11.3 G/DL (12.0-16.0); MEAN CORPUSCULAR VOLUME 91 FL (80-99); MONOCYTES % (AUTO) 8.6 % (1.0-10.0); NEUTROPHILS % (AUTO) 83.8 % (45.0-75.0); PLATELET COUNT 254 K/UL (150-450); RED BLOOD COUNT 3.63 M/UL (4.20-5.40); RED CELL DISTRIBUTION WIDTH 11.6 % (11.6-14.8); WHITE BLOOD COUNT 8.5 K/UL (4.8-10.8)
[2018-11-22 20:30] VITALS: BP 148/58
[2018-11-22 20:35] LABS: ANION GAP 8 mmol/L (5-15); BLOOD UREA NITROGEN 8 mg/dL (7-18); CALCIUM 8.5 MG/DL (8.5-10.1); CARBON DIOXIDE 30 MMOL/L (21-32); CHLORIDE 98 MMOL/L (98-107); CREATININE 0.7 MG/DL (0.55-1.30); POTASSIUM 3.3 MMOL/L (3.5-5.1); SODIUM 136 MMOL/L (136-145)
[2018-11-22 20:41] LABS: INR 1.2 (0.9-1.1)
[2018-11-22 20:48] LABS: ALANINE AMINOTRANSFERASE 41 U/L (12-78); ALBUMIN 3.1 G/DL (3.4-5.0); ALKALINE PHOSPHATASE 70 U/L (46-116); ASPARTATE AMINO TRANSFERASE 56 U/L (15-37); BILIRUBIN,TOTAL 0.7 MG/DL (0.2-1.0)
--- NOTE | 2018-11-22 21:00 | NUR ---
ED Nurse Note: Pt continues to rest quietly in bed, awake and alert, sleeping intermittently, asking for tramadol for pain, md informed, will medicate for pain and continue to closely monitor, pt also straight cath for urine sample, no resistance or bleeding noted, will continue to closely monitor and prepare for admission.
[2018-11-22 22:00] VITALS: BP 122/52
[2018-11-22 22:49] LABS: APPEARANCE,URINE CLEAR; BILIRUBIN, URINE NEGATIVE (NEGATIVE); COLOR,URINE PALE YELLOW; GLUCOSE, URINE (UA) NEGATIVE (NEGATIVE); KETONES,URINE 3+ (NEGATIVE); LEUKOCYTE ESTERASE ,URINE NEGATIVE (NEGATIVE); NITRITE,URINE NEGATIVE (NEGATIVE); PH,URINE 6 (4.5-8.0); PROTEIN,URINE NEGATIVE (NEGATIVE); UROBILINOGEN,URINE NORMAL MG/DL (0.0-1.0)
--- NOTE | 2018-11-22 23:10 | NUR ---
ED Nurse Note: Pt being admitted to hospital, report called to floor nurse Vesna barrettrn on unit, pt belongings list completed, pt being taken to floor bed via filippo and angelito protocols with RN x 2.
--- NOTE | 2018-11-22 23:15 | NUR ---
NURSE NOTES: Pt received from WILL Polo alert and oriented x4 with no acute s/s of distress noted. IV site asymptomatic and patent on R EJ 18g, saline lock. Pt has notable bruise with abrasion on R cheek, R elbow, and L elbow. Bruise noted on L cheek and L lateral forehead. Notable dependent swelling on bilateral lower extremities, with dependent swelling on L hand. Per pt, she was supposed to get a cane at home but has yet to be delivered so she has had to walk without. Lives at home in apartment but has caregiver that comes in on weekdays. Belongings with patient upon transfer - underwear and nightgown. Per pt, the caregiver will arrive in the AM to bring her dentures. Fall risk precautions implemented and fall precaution education given, pt verbalized understanding. Per pt, she received her flu vaccine this month (Oct 2018) but has not gotten her pneumonia vaccine. Bed in lowest position, bed alarm on. Call light and belongings within reach.
[2018-11-22 23:38] VITALS: BP 138/55
--- NOTE | 2018-11-22 23:45 | NUR ---
NURSE NOTES: RN called Dr. Villegas's office for admission orders. Spoke with Leanne, "MD will call back as soon as possible" Will continue to monitor pt.
[2018-11-23] VITALS: BP 113/72
--- NOTE | 2018-11-23 00:20 | NUR ---
NURSE NOTES: Received admission orders from Dr. Villegas: - Full code - No Added Salt mech soft chopped - DVT - ambulation - Tylenol 650 mg q4h for mild-moderate pain - Tramadol 50 mg BID for severe pain - Add uric acid and CK to ER labs - Physical Therapy - See EMAR for meds Informed Dr. Villegas of SR with intermittent 1AVB with HR in 70-80s. Per Dr. Villegas, no cardiac consult for now. Will add one upon further monitoring.
[2018-11-23] MEDS: Donepezil 10mg tab ORAL SCH ×2 (00:45→20:15)
[2018-11-23] MEDS: traMADol 50mg tab ORAL PRN ×2 (00:45→12:19)
[2018-11-23 00:47] LABS: CREATINE KINASE 1385 U/L (26-308)
--- NOTE | 2018-11-23 01:40 | NUR ---
NURSE NOTES: Pt resting in bed, asleep with no acute s/s of distress. food sanitarian on - Sinus Rhythm with PACs (76). Bed in lowest position, bed alarm on. Call light and belongings within reach.
[2018-11-23 04:00] VITALS: BP 113/58
--- NOTE | 2018-11-23 07:35 | NUR ---
HAND-OFF: Report given to WILL Juarez and WILL Dial.
--- NOTE | 2018-11-23 07:53 | NUR ---
NURSE NOTES: Pt received from WILL Lyles. Patient is AAO x4. Patient denies pain. Patient is breathing even and unlabored on room air. Patient has monitor worker on per protocol. IV site asymptomatic and patent on R EJ 18g, saline lock. Patient was setup to eat breakfast. Bed on high-fowlers. Noted bruises and abrasions on skin. Fall risk precautions implemented and fall precaution education given, pt verbalized understanding. Bed in lowest position, bed alarm on, side rails x3, and bed locked. Call light within reach. Will continue with plan of care.
[2018-11-23 08:00] VITALS: BP 114/48
[2018-11-23] MEDS: Aspirin EC 81mg tab ORAL SCH (08:23)
[2018-11-23] MEDS: BusPIRone 5mg Tab ORAL SCH ×2 (08:23→17:55)
[2018-11-23] MEDS: DULoxetine 30mg cap ORAL SCH (08:24)
[2018-11-23] MEDS: Benztropine 1mg tab ORAL SCH ×2 (08:24→17:55)
[2018-11-23] MEDS: Cosopt Opth Soln 10 mL Btl BOTH EYES SCH ×2 (08:32→17:56)
[2018-11-23 12:00] VITALS: BP 109/51
--- NOTE | 2018-11-23 15:43 | NUR ---
PT Note PT alex completed, treatment initiated. Patient is noted to have left hemiparesis with decreased postural stability in sitting and standing, making her at a high risk for further falls. Patient needs PT to increase her muscle strength and balance to improve her functional mobility and gait. Addendum: 11/23/18 at 1544 by JAEL PATEL PT Amended: Links added.
[2018-11-23 16:00] VITALS: BP 110/50
--- NOTE | 2018-11-23 16:43 | History & Physical ---
History and Physical History & Physicial Date of Admission: November 22, 2018. Patient Identification: 83 year-old woman with multiple chronic medical problems affecting mentation and mobility, presenting in Emergency Department with weakness, gait instability , after being found on floor by caregiver. Labs, including brain imaging unremarkable, except for elevated CPK, likely representing element of rhabdomyolysis from being on floor. Patient admitted for further evaluation and treatment. History of Present Illness: Patient was seen in the office on October. At that time she was doing well, and ambulating at baseline. The only area of concern was that she had missed her scheduled dose of parenteral Invega because of a logistical issue at [facility]. Dr. Carpenter had rescheduled the injection for this week. Apparently at home, sometimes Saturday morning the patient may have been asleep on her sofa and fell trying to get up. She landed in a prone position, and was unable to get back to her feet. She apparently had some mild rug chow primarily involving the right knee and the right lateral face in the periorbital area. Fortuitously, her caregiver called a number of hours later to check on her. When there was no answer, the caregiver checked on her and found her on the floor. The paramedics were called and the patient was brought to the emergency department. According the patient there was no loss of consciousness, no aura, no tremulousness or jerking, no chest pain or palpitations, and no other generalized symptoms. Other than the discomfort from being on the ground for an extended period of time, and the symptoms associated with her abraded skin, Ms. Livingston reports feeling relatively well in her baseline. In the emergency room, the patient was noted to have relatively normal laboratories as well as a negative CT scan of the brain. However she appeared weak and unsteady, and the patient was admitted for further evaluation of the event, as well as stabilization to determine whether she could return to home. Of note is the fact that Ms. Livingston exhibited a more prominent left hemiparesis on her physical therapy evaluation. The patient has had a previous episode where she appeared to have a fall and transient increase in left-sided weakness which was felt to be primarily mechanical in etiology. At the time of examination, Ms. Livingston was lying comfortably in bed. Her history is somewhat tangential, and lacking in details, with some question about accuracy as well. At the present time she denies discomfort and reports that she is feeling well. She denies any acute pain but has her typical left shoulder and low back pain which she admits is not exacerbated. She denies any headache or neurologic symptoms, she denies any chest pain palpitations or shortness of breath, and she denies any nausea or gastrointestinal symptomatology. She states that she is feeling her usual self other than the abrasions and some mild generalized weakness. Past Medical History: 1. 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 2. Follicular lymphoma, s/p chemotherapy, with course of Revlimid cycling 3 weeks on and 1 week off. 3. Prior episode of mild hyponatremia, resolved. Etiology secondary to psychiatric medications versus psychogenic polydipsia versus volume depletion. 4. Mild cognitive impairment. 5. History of syncope, felt to be vasovagal associated with volume depletion. 6. History of rhabdomyolysis associated with fall. 7. Prior episodes of electrolyte disorder with hyponatremia and hypokalemia. 8. Episode of transient left hemiparesis without evidence of focal neurologic findings secondary to mechanical injury. 9. Gait instability. 10. Glaucoma. 11. Venous insufficiency with episodic dependent edema. 12. Obesity. 13. Osteoarthritis. 14. Osteoporosis. 15. Vitamin D deficiency. 16. 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 17. Status post cholecystectomy for biliary colic. 18. Urinary frequency. 19. Status post hysterectomy. 20. History of left breast lipoma resection. 21. Status post tonsillectomy and adenoidectomy. 22. Status post bladder suspension with episodic urinary incontinence. 23. Status post soft tissue resection from right arm. 24. Status post Bartholin's abscess drainage with recurrent vaginolabial abscesses. Medications: 1. Revlimid 20mg daily, cycled 3 weeks on, 1 week off. 2. Mirtazapine 15 mg nightly. 3. Lumigan 0.01% 1 drop OU nightly. 4. Cosopt 2/0.5% 1 drop OU twice daily. 5. Toviaz 8 mg daily. 6. Lasix 60 mg daily. 7. Potassium chloride 10 mEq twice daily. 8. Aspirin 81 mg daily. 9. Benztropine 1 mg twice daily. 10. Invega 3 mg p.o. daily. 11. Invega monthly IM per Dr. Carpenter. 12. Buspirone 5 mg twice a day. 13. Duloxetine 80 mg daily. 14. Temazepam 30 mg nightly 15. Tramadol 50 mg twice daily as need for severe pain. 16. Donepezil 10 mg daily. Allergies: Reported intolerances to ibuprofen and codeine. Social History: Patient reportedly lives alone in an apartment with assistance from her daughter and with a part-time caregiver. 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 There was a history of smoking and alcohol use over thirty years ago. Family History: Not directly contributory at this time. Review of Systems: Head/neck: No headaches. Mild discomfort from right periorbital abrasion. Denies significant neck pain. Chest: No cough, shortness of breath, or pressure. Cardiac: No chest pain, palpitations. Abdomen: No new gastrointestinal symptoms, no problems with bowel movements, no new urinary symptoms. Extremities: No acute joint pain. Chronic dependent edema. Mild tenderness over right lateral knee associated with abrasion. Ms. Livingston also denies new anxiety, delusions, or hallucinations. Physical Examination: Blood pressure 148/58, heart rate 72 and regular, respiratory rate 20, temperature 99 degrees orally, oxygen saturation 98% on room air. Head/neck: Normocephalic, resurfaced abraded area lateral to the right eye with mild swelling but no significant erythema and only minimal tenderness. Range of motion of the neck appears to be normal. No masses appreciated. Chest: Distant breath sounds clear to auscultation and percussion. Breasts: No dominant masses appreciated. Cardiovascular: Regular rhythm without gallops murmurs or rubs appreciated. Abdomen: Normal bowel sounds, soft, nontender, without masses or organomegaly. Extremities: Moderate edema from the knees down, without localized tenderness cords or erythema. Minimal tenderness and moderate swelling of the lateral aspect of the right knee associated with resurfaced abraded area. Neurologic: Mental status and language consistent with baseline. No cranial nerve localization appreciated. Grasp and left arm and leg strength mildly diminished compared to right. Lymphatics: No adenopathy appreciated. Gait not tested. Laboratories: WBC 8.5, hematocrit 33.1%, MCV 91, platelet count 254. INR 1.2, PTT 31. Sodium 136, potassium 3.3, chloride 98, bicarb 30, BUN 8, creatinine 0.7, glucose 113, calcium 8.5, total bilirubin 0.7, AST 56, ALT 41, alkaline phosphatase 70, troponin 0 0.009, total CK 1385, uric acid 4.9, proBNP 811, total protein 6.3, albumin 3.1, TSH 0.862. Urinalysis remarkable for 3+ ketones , 1+ blood, RBCs 2-4, WBC 0-2. Formal radiologic reports regarding CT of head and chest not currently available, but negative per Dr. Hernandez in the emergency department. Impression/Plan: 1. Unwitnessed fall with superficial abrasions. Suspect mechanical etiology, rule out neurologic or cardiac diathesis, rule out drug associated adverse effect. 2. Finding of left hemiparesis, witnessed also in May of this year after a fall event. Etiology may be mechanical, rule out post ictal paresis. Observe and obtain EEG. 3. No significant metabolic abnormalities noted on initial screening, obtain follow-up laboratories. 4. Mobilize with physical therapy to evaluate for gait stability and evidence of other specific pathology. 5. Depending on patient's mobilization and ability to care for herself, consider discharge to home with home health care versus rehabilitation at correction facility. 6. Discussed with daughter. Obtain appropriate assistive device at home for ambulation. Consider [facility] for potential additional falls. 7. Discussed with Dr. Vivas. Okay to hold Revlimid during hospitalization. 8. Will attempt to see if monthly intramuscular in Al injection can be obtained per Dr. Carpenter. 9. Continue usual medications otherwise. Magdaleno Villegas MD Nov 23, 2018 16:43
--- NOTE | 2018-11-23 19:49 | NUR ---
HAND-OFF: Report given to WILL Kilpatrick.
--- NOTE | 2018-11-23 19:49 | NUR ---
NURSE NOTES: Received report from WILL Juarez. Patient in bed, resting, in no acute distress. Bed in lowest position. Call lights within reach. Will continue plan of care.
[2018-11-23 20:00] VITALS: BP 103/74
[2018-11-24] VITALS: BP 120/49
[2018-11-24 04:00] VITALS: BP 125/51
--- NOTE | 2018-11-24 07:17 | NUR ---
HAND-OFF: Report given to Larry SOLIS.
--- NOTE | 2018-11-24 07:28 | NUR ---
NURSE NOTES: Pt received from WILL Kilpatrick. Patient is asleep and awaken by name. AAO x4. Patient denies pain. Patient is breathing even and unlabored on room air. Patient has ekg monitor on per protocol. IV site asymptomatic and patent on R EJ 18g, saline lock. Bed on high-fowlers. Noted bruises and abrasions on skin. Fall risk precautions implemented and fall precaution education given, pt verbalized understanding. Bed in lowest position, bed alarm on, side rails x3, and bed locked. Call light within reach. Will continue with plan of care.
[2018-11-24 07:51] LABS: BASOPHILS % (AUTO) 0.4 % (0.0-2.0); EOSINOPHILS % (AUTO) 1.3 % (0.0-3.0); HEMATOCRIT 29.3 % (37.0-47.0); HEMOGLOBIN 9.8 G/DL (12.0-16.0); LYMPHOCYTES % (AUTO) 27.7 % (20.0-45.0); MEAN CORPUSCULAR VOLUME 91 FL (80-99); MONOCYTES % (AUTO) 9.5 % (1.0-10.0); NEUTROPHILS % (AUTO) 61.1 % (45.0-75.0); PLATELET COUNT 238 K/UL (150-450); RED BLOOD COUNT 3.22 M/UL (4.20-5.40); RED CELL DISTRIBUTION WIDTH 12.8 % (11.6-14.8); WHITE BLOOD COUNT 5.8 K/UL (4.8-10.8)
[2018-11-24 07:59] LABS: ALANINE AMINOTRANSFERASE 31 U/L (12-78); ALBUMIN 2.4 G/DL (3.4-5.0); ALBUMIN/GLOBULIN RATIO 0.7 (1.0-2.7); ALKALINE PHOSPHATASE 54 U/L (46-116); ANION GAP 5 mmol/L (5-15); ASPARTATE AMINO TRANSFERASE 31 U/L (15-37); BILIRUBIN,TOTAL 0.3 MG/DL (0.2-1.0); BLOOD UREA NITROGEN 5 mg/dL (7-18); CALCIUM 8.3 MG/DL (8.5-10.1); CARBON DIOXIDE 32 MMOL/L (21-32); CHLORIDE 101 MMOL/L (98-107); CREATINE KINASE 328 U/L (26-308); CREATININE 0.8 MG/DL (0.55-1.30); POTASSIUM 3.3 MMOL/L (3.5-5.1); SODIUM 138 MMOL/L (136-145)
[2018-11-24 08:00] VITALS: BP 113/52
[2018-11-24] MEDS: traMADol 50mg tab ORAL PRN (08:32)
[2018-11-24] MEDS: BusPIRone 5mg Tab ORAL SCH ×2 (08:32→17:56)
[2018-11-24] MEDS: Aspirin EC 81mg tab ORAL SCH (08:33)
[2018-11-24] MEDS: Benztropine 1mg tab ORAL SCH ×2 (08:33→17:56)
[2018-11-24] MEDS: DULoxetine 30mg cap ORAL SCH (08:33)
[2018-11-24] MEDS: Cosopt Opth Soln 10 mL Btl BOTH EYES SCH ×2 (08:34→17:56)
--- NOTE | 2018-11-24 11:37 | Cardiology Report ---
APPROVED REPORT EKG Measurement Heart [id number] Sinus rhythm with 1st degree AV block Otherwise normal ECG
[2018-11-24 12:00] VITALS: BP 120/52
[2018-11-24 16:00] VITALS: BP 116/53
--- NOTE | 2018-11-24 18:33 | NUR ---
CASE MANAGEMENT: INITIAL REVIEW 83 YO F PRESENTED TO ED FROM HOME CC: MULTIPLE FALLS PMHx: HTN. DEMENTIA. JOYCE. SI:MULTIPLE FALLS. GEN WEAKNESS. T 99 HR 71 RR 20 B/P 125/53 SATS 96% ON RA K 3.3 GLU 113 AST 56 BNP 811 TOTAL CK 1385 IS: TYLENOL PO X1 PATIENT ADMITTED TO TELE 11/22/2018 @ 1226 DCP: PATIENT TO BE DISCHARGED TO HOME ONCE MEDICALLY CLEARED. PLAN OF CARE: EEG HOME SAFETY EVAL Addendum: 11/24/18 at 1838 by Alyson Bhakta CM GABRIEL CHRISTOPHER
--- NOTE | 2018-11-24 19:23 | NUR ---
NURSE NOTES: Paged Dr. Moni Villegas about Mg 1.7 and Potassium 3.3. Awaiting call back orders.
--- NOTE | 2018-11-24 19:23 | NUR ---
HAND-OFF: Report given to WILL Draper. Endorsed about potassium 3.3 and mg 1.7. Patient is resting in bed.
--- NOTE | 2018-11-24 19:30 | NUR ---
NURSE NOTES: Spoke to Dr. Villegas. He is aware of potassium 3.3 and mg 1.7. States he will see patient tonight. Endorse to WILL Draper.
--- NOTE | 2018-11-24 19:31 | NUR ---
NURSE NOTES: Patient is AAO x4. Patient denies pain. Breathing is even and unlabored on room air. Patient has manager monitoring on per protocol. IV site asymptomatic and patent on R EJ 18g, saline lock. Bed in semi-fowlers. Noted bruises and abrasions on skin. Fall risk precautions implemented and fall precaution education given, pt verbalized understanding. Bed in lowest position, bed alarm on, side rails x3, and bed locked. Call light within reach. Will continue with plan of care.
[2018-11-24 20:00] VITALS: BP 114/49
--- NOTE | 2018-11-24 21:38 | Geriatric Progress Note ---
Subjective Interval Events Patient alert, in no overt distress. Reports she is feeling relatively well, except for abraded areas. As per usual, c/o moderately severe pain at all times, but no functional evidence of actual mechanical symptoms or limitations. Eating well. Ambulated 10' with P.T. Staff reports drainage from R lateral knee area. MG, K borderline low. CK normalizing. Other labs unremarkable. Constitutional: Denies: chills, sweats, fever Respiratory: Denies: cough, orthopnea, shortness of breath Cardiovascular: Denies: chest pain, palpitations Gastrointestinal/Abdominal: Denies: constipation, diarrhea, nausea Genitourinary: Denies: dysuria Geriatric Geriatric Last 24 Hour Vital Signs Date Time Temp Pulse Resp B/P (MAP) Pulse Ox O2 Delivery O2 Flow Rate FiO2 11/24/18 16:00 98.6 57 18 116/53 (74) 95 11/24/18 15:30 57 11/24/18 12:11 57 11/24/18 12:00 97.8 56 18 120/52 (74) 97 11/24/18 09:02 97.8 11/24/18 08:46 Room Air 11/24/18 08:00 97.8 62 16 113/52 (72) 95 11/24/18 07:35 61 11/24/18 04:00 98.0 65 19 125/51 (75) 95 11/24/18 04:00 63 11/24/18 00:00 98.2 67 19 120/49 (72) 94 11/24/18 00:00 67 Intake and Output 11/23/18 11/24/18 19:00 07:00 Intake Total 640 ml Output Total 1100 ml Balance -460 ml Intake Oral 640 ml Output Urine Total 1100 ml Laboratory Tests Test 11/24/18 05:45 White Blood Count 5.8 K/UL (4.8-10.8) Red Blood Count 3.22 M/UL (4.20-5.40) L Hemoglobin 9.8 G/DL (12.0-16.0) L Hematocrit 29.3 % (37.0-47.0) L Mean Corpuscular Volume 91 FL (80-99) Mean Corpuscular Hemoglobin 30.3 PG (27.0-31.0) Mean Corpuscular Hemoglobin Concent 33.3 G/DL (32.0-36.0) Red Cell Distribution Width 12.8 % (11.6-14.8) Platelet Count 238 K/UL (150-450) Mean Platelet Volume 5.5 FL (6.5-10.1) L Neutrophils (%) (Auto) 61.1 % (45.0-75.0) Lymphocytes (%) (Auto) 27.7 % (20.0-45.0) Monocytes (%) (Auto) 9.5 % (1.0-10.0) Eosinophils (%) (Auto) 1.3 % (0.0-3.0) Basophils (%) (Auto) 0.4 % (0.0-2.0) Sodium Level 138 MMOL/L (136-145) Potassium Level 3.3 MMOL/L (3.5-5.1) L Chloride Level 101 MMOL/L (98-107) Carbon Dioxide Level 32 MMOL/L (21-32) Anion Gap 5 mmol/L (5-15) Blood Urea Nitrogen 5 mg/dL (7-18) L Creatinine 0.8 MG/DL (0.55-1.30) Estimat Glomerular Filtration Rate mL/min (>60) Glucose Level 95 MG/DL (74-106) Calcium Level 8.3 MG/DL (8.5-10.1) L Magnesium Level 1.7 MG/DL (1.8-2.4) L Total Bilirubin 0.3 MG/DL (0.2-1.0) Aspartate Amino Transf (AST/SGOT) 31 U/L (15-37) Alanine Aminotransferase (ALT/SGPT) 31 U/L (12-78) Alkaline Phosphatase 54 U/L (46-116) Total Creatine Kinase 328 U/L (26-308) H Total Protein 5.8 G/DL (6.4-8.2) L Albumin 2.4 G/DL (3.4-5.0) L Globulin 3.4 g/dL Albumin/Globulin Ratio 0.7 (1.0-2.7) L Current Medications Medications (Trade) Dose Ordered Sig/Esthela Route PRN Reason Start Time Stop Time Status Last Admin Dose Admin Acetaminophen (Tylenol) 650 mg Q4H PRN ORAL Mild Pain/Temp > 100.5 11/23/18 00:15 12/23/18 00:14 Aspirin (Ecotrin) 81 mg DAILY ORAL 11/23/18 09:00 12/23/18 08:59 11/24/18 08:33 Benztropine Mesylate (Cogentin) 1 mg BID ORAL 11/23/18 09:00 12/23/18 08:59 11/24/18 17:56 Buspirone HCl (Buspar) 5 mg BID ORAL 11/23/18 09:00 12/23/18 08:59 11/24/18 17:56 Donepezil HCl (Aricept) 10 mg BEDTIME ORAL 11/23/18 00:30 12/23/18 00:29 11/23/18 20:15 Dorzolamide/ Timolol (Cosopt) 1 drop BID BOTH EYES 11/23/18 09:00 12/23/18 08:59 11/24/18 17:56 Duloxetine HCl (Cymbalta) 60 mg DAILY ORAL 11/23/18 09:00 12/23/18 08:59 11/24/18 08:33 Furosemide (Lasix) 60 mg DAILY ORAL 11/23/18 09:00 12/23/18 08:59 11/24/18 08:32 Mirtazapine (Remeron) 15 mg BEDTIME ORAL 11/23/18 00:30 12/23/18 00:29 11/23/18 20:15 Potassium Chloride (K-Dur) 10 meq TWICE A DAY ORAL 11/23/18 09:00 12/23/18 08:59 11/24/18 17:56 Tramadol HCl (Ultram) 50 mg Q12H PRN ORAL Severe Pain (Pain Scale 7-10) 11/23/18 00:15 11/30/18 00:14 11/24/18 08:32 Height (Feet): 5 Height (Inches): 5.00 Weight (Pounds): 179 Magdaleno Villegas MD Nov 24, 2018 21:38
[2018-11-24] MEDS ORDERED: Gadavist 7.5mMol/7.5ml vial IV PRN (22:00)
[2018-11-24] MEDS: Donepezil 10mg tab ORAL SCH (22:01)
[2018-11-25] VITALS: BP 115/54
[2018-11-25 04:00] VITALS: BP 120/59
--- NOTE | 2018-11-25 07:28 | NUR ---
NURSE NOTES: Report received from WILL Draper. Pt. in bed having breakfast. AOx4 at this time. Aware of situation and able to communicate needs. Helped to the bedside commode. Left side weakness noted. Pt. in RA. Denies any pain or SOB. Bed sheets changed. Right knee open wound washed with NS and covered with Optifoam. Bed on lowest position, side rails upx2, brakes engaged, alarm on. Not ready to go to bed yet, reminder given to Pt. to use call light before getting off bedside commode. Call light left within easy reach.
[2018-11-25 07:44] LABS: BASOPHILS % (AUTO) 0.7 % (0.0-2.0); EOSINOPHILS % (AUTO) 1.3 % (0.0-3.0); HEMATOCRIT 30.4 % (37.0-47.0); HEMOGLOBIN 10.1 G/DL (12.0-16.0); LYMPHOCYTES % (AUTO) 27.1 % (20.0-45.0); MEAN CORPUSCULAR VOLUME 91 FL (80-99); MONOCYTES % (AUTO) 10.8 % (1.0-10.0); NEUTROPHILS % (AUTO) 60.1 % (45.0-75.0); PLATELET COUNT 227 K/UL (150-450); RED BLOOD COUNT 3.35 M/UL (4.20-5.40); WHITE BLOOD COUNT 4.6 K/UL (4.8-10.8)
--- NOTE | 2018-11-25 07:51 | NUR ---
HAND-OFF: Report given to WILL Gifford.
[2018-11-25 07:58] LABS: ANION GAP 5 mmol/L (5-15); BLOOD UREA NITROGEN 6 mg/dL (7-18); CALCIUM 8.6 MG/DL (8.5-10.1); CARBON DIOXIDE 29 MMOL/L (21-32); CHLORIDE 104 MMOL/L (98-107); CREATININE 0.8 MG/DL (0.55-1.30); POTASSIUM 3.8 MMOL/L (3.5-5.1); SODIUM 138 MMOL/L (136-145)
[2018-11-25 08:00] VITALS: BP 127/54
--- NOTE | 2018-11-25 08:36 | NUR ---
NURSE NOTES: Helped back to bed safely.
[2018-11-25] MEDS: DULoxetine 30mg cap ORAL SCH (09:05)
[2018-11-25] MEDS: Cosopt Opth Soln 10 mL Btl BOTH EYES SCH ×2 (09:05→18:16)
[2018-11-25] MEDS: Benztropine 1mg tab ORAL SCH ×2 (09:06→18:15)
[2018-11-25] MEDS: BusPIRone 5mg Tab ORAL SCH ×2 (09:06→18:15)
[2018-11-25] MEDS: Aspirin EC 81mg tab ORAL SCH (09:06)
[2018-11-25] MEDS: traMADol 50mg tab ORAL PRN ×2 (09:13→21:28)
--- NOTE | 2018-11-25 10:55 | NUR ---
MRI BRAIN W/WO COMPLETED.
[2018-11-25 12:00] VITALS: BP 109/72
--- NOTE | 2018-11-25 15:32 | Diagnostic Imaging Report ---
Indication: Fall, syncope, history of psychosis, transient left hemiparesis Technique: sagittal T1 fast spin echo, axial T1 and T2 FLAIR PROPELLER, axial T2 FS PROPELLER, T2* GRE, axial diffusion weighted images, post contrast axial and coronal T1 FLAIR PROPELLER images. ADC and exponential ADC maps generated Comparison: Brain CT dated 11/22/2018, brain MRI dated 03/11/2013 Findings: . No abnormal areas of restricted diffusion to suggest acute infarction. No acute hemorrhage or edema. No mass effect nor midline shift. No abnormal contrast enhancement. There is mild age-related enlargement of the ventricles and extra axial CSF spaces. There is evidence of prior bilateral cataract surgery. There is right maxillary sinus disease. Previously demonstrated ethmoid sinus disease has improved. The vascular flow voids are preserved. When compared to the prior exam, no significant interim change Impression: Mild age-related volume loss Negative for acute intracranial bleed, mass effect, or infarct Sinus disease
[2018-11-25 16:00] VITALS: BP 131/65
--- NOTE | 2018-11-25 16:00 | NUR ---
NURSE NOTES: Family brought Pt's own medication. Per MD to be started on 11/26 at 9am. Medication sent to pharmacy.
[2018-11-25] MEDS ORDERED: REVLIMID ORAL SCH (16:44)
--- NOTE | 2018-11-25 16:44 | Geriatric Progress Note ---
Assessment/Plan Problems: (1) Chronic congestive heart failure (2) Follicular lymphoma (3) Left rotator cuff tear arthropathy (4) Osteoarthritis (5) Abrasion, chin without infection (6) Abrasion of periocular area, right (7) Abrasion of knee, right (8) Fall (9) Dehydration (10) Hypokalemia (11) Gait abnormality (12) Paranoid psychosis (13) Schizoaffective disorder (14) MCI (mild cognitive impairment) Assessment/Plan Patient stabilizing. Labs OK. No evidence of acute ischemic event. EEG reading pending to evaluate for ictal episode. Will ask Dr. Clay to evaluate from neurologic point of view. Otherwise, continue mobilizing, with plan for SNF rehab. [facility] IM pending d/c since not available here. Discussed with: patient, hospital staff, other - Caregiver. Subjective Interval Events Patient reports she is "trying". Eating adequately, denies discomfort except chronic L shoulder rotator cuff sxs, as well as abrasions on chin, R face, and R knee. Ambulated and exercised with P.T. Caregiver at bedside. Patient apparently fell twice and was on ground > 12 hours. MRI w/wo of brain, shows no acute or subacute focus. Labs stabilizing with replacement of K, Mg. Constitutional: Denies: chills, sweats, fever Respiratory: Denies: cough, orthopnea, shortness of breath Cardiovascular: Denies: chest pain, palpitations Gastrointestinal/Abdominal: Denies: abdominal pain Genitourinary: Denies: dysuria Geriatric Geriatric Last 24 Hour Vital Signs Date Time Temp Pulse Resp B/P (MAP) Pulse Ox O2 Delivery O2 Flow Rate FiO2 11/25/18 12:00 65 11/25/18 12:00 98.2 70 18 109/72 (84) 97 11/25/18 11:10 Room Air 11/25/18 08:00 85 11/25/18 08:00 97.7 69 18 127/54 (78) 97 11/25/18 04:00 98.1 65 18 120/59 (79) 96 11/25/18 04:00 64 11/25/18 00:00 98.6 67 18 115/54 (74) 94 11/25/18 00:00 72 11/24/18 21:00 Room Air 11/24/18 20:00 99.1 60 16 114/49 (70) 96 11/24/18 19:00 69 Intake and Output 11/24/18 11/25/18 19:00 07:00 Intake Total 510 ml Output Total 350 ml Balance 160 ml Intake Oral 510 ml Output Urine Total 350 ml # Voids 2 # Bowel Movements 1 Laboratory Tests Test 11/25/18 07:10 White Blood Count 4.6 K/UL (4.8-10.8) L Red Blood Count 3.35 M/UL (4.20-5.40) L Hemoglobin 10.1 G/DL (12.0-16.0) L Hematocrit 30.4 % (37.0-47.0) L Mean Corpuscular Volume 91 FL (80-99) Mean Corpuscular Hemoglobin 30.3 PG (27.0-31.0) Mean Corpuscular Hemoglobin Concent 33.3 G/DL (32.0-36.0) Red Cell Distribution Width 13.0 % (11.6-14.8) Platelet Count 227 K/UL (150-450) Mean Platelet Volume 5.5 FL (6.5-10.1) L Neutrophils (%) (Auto) 60.1 % (45.0-75.0) Lymphocytes (%) (Auto) 27.1 % (20.0-45.0) Monocytes (%) (Auto) 10.8 % (1.0-10.0) H Eosinophils (%) (Auto) 1.3 % (0.0-3.0) Basophils (%) (Auto) 0.7 % (0.0-2.0) Sodium Level 138 MMOL/L (136-145) Potassium Level 3.8 MMOL/L (3.5-5.1) Chloride Level 104 MMOL/L (98-107) Carbon Dioxide Level 29 MMOL/L (21-32) Anion Gap 5 mmol/L (5-15) Blood Urea Nitrogen 6 mg/dL (7-18) L Creatinine 0.8 MG/DL (0.55-1.30) Estimat Glomerular Filtration Rate mL/min (>60) Glucose Level 107 MG/DL (74-106) H Calcium Level 8.6 MG/DL (8.5-10.1) Magnesium Level 2.0 MG/DL (1.8-2.4) Current Medications Medications (Trade) Dose Ordered Sig/Esthela Route PRN Reason Start Time Stop Time Status Last Admin Dose Admin Acetaminophen (Tylenol) 650 mg Q4H PRN ORAL Mild Pain/Temp > 100.5 11/23/18 00:15 12/23/18 00:14 Aspirin (Ecotrin) 81 mg DAILY ORAL 11/23/18 09:00 12/23/18 08:59 11/25/18 09:06 Benztropine Mesylate (Cogentin) 1 mg BID ORAL 11/23/18 09:00 12/23/18 08:59 11/25/18 09:06 Buspirone HCl (Buspar) 5 mg BID ORAL 11/23/18 09:00 12/23/18 08:59 11/25/18 09:06 Donepezil HCl (Aricept) 10 mg BEDTIME ORAL 11/23/18 00:30 12/23/18 00:29 11/24/18 22:01 Dorzolamide/ Timolol (Cosopt) 1 drop BID BOTH EYES 11/23/18 09:00 12/23/18 08:59 11/25/18 09:05 Duloxetine HCl (Cymbalta) 60 mg DAILY ORAL 11/26/18 09:00 12/23/18 08:59 Furosemide (Lasix) 60 mg DAILY ORAL 11/23/18 09:00 12/23/18 08:59 11/25/18 09:06 Gadobutrol (Gadavist) 7.5 mmol NOW PRN IV Radiology Procedure 11/24/18 22:00 11/28/18 21:49 Mirtazapine (Remeron) 15 mg BEDTIME ORAL 11/23/18 00:30 12/23/18 00:29 11/24/18 22:01 Potassium Chloride (K-Dur) 10 meq TWICE A DAY ORAL 11/23/18 09:00 12/23/18 08:59 11/25/18 09:06 Tramadol HCl (Ultram) 50 mg Q12H PRN ORAL Severe Pain (Pain Scale 7-10) 11/23/18 00:15 11/30/18 00:14 11/25/18 09:13 Height (Feet): 5 Height (Inches): 5.00 Weight (Pounds): 179 General Appearance: alert, non-toxic Head: normocephalic, other - abraded skin over mentum with no open areas or drainage. Abraded skin over R lateral periorbital area with residual swelling but no open areas or darainage. Eyes: bilateral anicteric ENT: normal voice Neck: full range of motion, no mass Respiratory: lungs clear Cardiovascular: regular rate, rhythm Gastrointestinal: normal bowel sounds, non tender, soft, no mass, no organomegaly Musculoskeletal: no calf tenderness, other - R lateral leg with open abraded area now about 8cm in diameter, with slight drainage, no evidence of definite infection. Edema: mild edema - distal LEs Neurologic: no new focality - L weaker than R, ? mechanical. Psychiatric: anxious - mildly Magdaleno Villegas MD Nov 25, 2018 16:44
--- NOTE | 2018-11-25 19:44 | NUR ---
HAND-OFF: Report given to WILL Espitia. Pt. in stable condition. Plan of care endorsed.
[2018-11-25 20:00] VITALS: BP 155/69
--- NOTE | 2018-11-25 20:22 | Consultation ---
Consult Note Consult Note NEUROLOGY CONSULTATION: Full note dictated #[id number] 83-year-old, left-handed, black lady, with past history of paranoid psychosis associated with schizoaffective disorder, follicular lymphoma, mild cognitive impairment, prior episodes of syncope, prior falls, an episode of transient left hemiparesis in the past, gait disorder, glaucoma, obesity, osteoarthritis, and osteoporosis. She was functioning relatively well until 11/21/2018 when she was at home sitting on a sofa. She wanted to go to the bathroom and when she tried to get up she fell down face forwards. She was unable to get herself up and was lying on the floor in a prone position trying to get up as a result of which she scraped her face and her knees. She is certain that there was no loss of consciousness. She denies any weakness on one side of the other numbness on one side of the other problems with speech problems with language problems with vision or other new neurological problems. She has however noticed that her left side is a little weaker than the right but says that that has not changed. ON EXAMINATION: Awake and alert Fully oriented Memory: 3/3-0, 1, 3 on the second trial Trump and Obama only Math impaired minimally Visual-spatial significantly impaired Speech with dysarthria but edentulous Language anomic Cranial nerves II through XII with left seventh central facial paresis G 5/5 power on right. G 5-/5 power on left except for G 4-/5 in left finger extensors and G 3/5 in left iliopsoas. Sensory examination intact to pinprick and light touch Reflexes: 1+ on right and 2+ on left at biceps triceps and brachioradialis. 0 at both knees and ankles. Plantar responses flexor. Coordination: [id number] normal on right unable to do on left because of significant left upper extremity weakness. Unable to perform [id number] bilaterally Stance: Needs support on both sides to stand Gait: Walks with left hemiparetic gait with support. IMPRESSION: Fall most probably related to significant left hemiparesis. Left hemiparesis most probably related to old small vessel cerebrovascular disease as no acute changes were seen on the MRI scan. EEG was normal in the awake and drowsy states. Recommendations: Work-up therapy for treatable causes of cerebrovascular disease. Keep blood pressure in physiological range that is equal to less than 120/80 mmHg. Physical and Occupational Therapy for left-sided strengthening exercises and gait retraining. Consider brief course of acute rehabilitation so that the patient can be independent enough to go back home. Timmy Clay M.D., M.S.P.H. Obed,Timmy Monique MD Nov 25, 2018 20:22
--- NOTE | 2018-11-25 20:40 | NUR ---
NURSE NOTES: Received pt and report from WILL Ya. Observed pt resting in bed with both eyes open. Pt is A/Ox3. panel monitor is in placed, IV site intact, asymptomatic, and patent. Bed is in the lowest position and locked, call light within reach. No signs/symptoms of acute distress noted at this time. Will continue plan of care. Addendum: 11/25/18 at 2040 by Shanel Amor Mai, RN Received pt at 193.
[2018-11-25] MEDS: Donepezil 10mg tab ORAL SCH (21:27)
--- NOTE | 2018-11-25 22:15 | Electroencephalogram ---
DATE OF PROCEDURE: 11/24/2018 EEG REPORT REQUESTING PHYSICIAN: Magdaleno Villegas M.D. READING PHYSICIAN: Timmy Clay M.D. HISTORY: This EEG was performed on an 83-year-old lady who was found down at home under questionable circumstances. The purpose of this EEG was to evaluate the patient for ictal or interictal phenomena. TECHNICAL NOTE: This EEG was performed on a [employer] with electrodes placed on the scalp according to the International 10-20 system. [id number] and stdqf-bt-[id number] montages were used. The EEG was technically satisfactory and was performed in the awake and drowsy states. OBSERVATIONS: In the best awake state, the background activity consisted of 8-8.5 Hz posteriorly predominant well-developed alpha waveforms, which attenuated on eye opening. Drowsiness was characterized by dissolution of the alpha rhythm and the appearance of slow frequencies in the 6-7 Hz theta range. No focal abnormalities or epileptiform discharges were seen. IMPRESSION: Normal awake and drowsy EEG. Timmy Clay M.D., M.S.P.H. DR: TAMY JOB#: [id number] [email or web address]
--- NOTE | 2018-11-25 23:00 | Consultation ---
DATE OF CONSULTATION: 11/25/2018 NEUROLOGY CONSULTATION CONSULTING PHYSICIAN: Timmy Clay M.D. REQUESTING PHYSICIAN: Magdaleno Villegas M.D. HISTORY: Ms. Teetee Livingston is an 83-year-old, left-handed, black lady, who does have a past history of a paranoid psychosis associated with schizoaffective disorder, follicular lymphoma for which she is on chemotherapy, mild cognitive impairment of an amnestic type, prior episodes of syncope, prior falls, and an episode of transient left hemiparesis in the past, gait disorder for which she sometimes uses a walker to walk with, glaucoma, obesity, osteoarthritis, and osteoporosis. She was functioning relatively well at home until 11/21/2018 when she was at home sitting on the sofa. She then wanted to go to the bathroom and when she tried to get up, she fell face forwards. She was unable to get herself up and was lying on the floor in a prone position. She tried to help herself up, but in the process, she scraped her face and her knees. She finally was helped on 11/22/2018 and was brought into the [facility] emergency room. She is absolutely certain that there was no loss of consciousness. She also denies any increased weakness on the one side or the other, numbness on one side or the other, problems with speech, problems with language, problems with vision, or any new neurological problems. She has, however, noticed that her left side has been a little weak for quite some time now. She is uncertain as to whether this weakness has worsened in the last few days. PAST MEDICAL HISTORY: Significant for schizoaffective disorder with paranoid psychosis, follicular lymphoma, mild cognitive impairment of an amnestic type, prior episodes of syncope, prior falls, episode of transient left-sided weakness in the past, gait disorder, glaucoma, obesity, osteoporosis, and osteoarthritis. FAMILY HISTORY: Nothing significant as per the patient. PERSONAL HISTORY: Home: She lives alone, but she has a caregiver who comes and takes care of her in the mornings. 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 Habits: She used to smoke in the past, but stopped smoking numerous years ago. She denies use of alcohol or illicit drugs. MEDICATIONS: Present medications include Cymbalta, BuSpar, Cosopt eye drops, Lasix, aspirin 81 mg daily, Cogentin 1 mg twice a day, potassium chloride, Aricept 10 mg daily, mirtazapine 15 mg daily, Tylenol p.r.n., and tramadol p.r.n. PHYSICAL EXAMINATION: GENERAL: She is a well-developed, well-nourished, obese black lady, lying in bed, in no acute distress. VITAL SIGNS: Pulse 63/minute, blood pressure 131/65 mmHg, respirations 18/minute, and temperature 97.9 degrees Fahrenheit. HEAD: Normocephalic and atraumatic. EENT: Examination benign. FACE: Had abrasions over it. NECK: No neck rigidity was observed. EXTREMITIES: Abrasions over both knees. NEUROLOGICAL EXAMINATION: MENTAL STATUS EXAMINATION: She was awake and alert. She was oriented to person, place, and time. She was able to recall 3/3 words immediately after 1 minute and 3 minutes on the second trial. She was able to remember presidents, Trump and Obama, but could not remember presidents prior to that. Her mathematical skills were impaired. Her visuospatial function was also impaired. SPEECH: She did have a dysarthria, but she was edentulous. LANGUAGE: She had anomic aphasia for low and mid frequency words. CRANIAL NERVE EXAMINATION: II: The visual tom were intact on confrontation testing. III, IV & : The external ocular movements were full and the pupils 3 mm in diameter, and sluggishly reactive to light. V: She had normal facial sensations, and the temporales, masseters, and pterygoids functioned normally. VII: She had a left seventh central facial paresis. VIII: She was able to hear and had no nystagmus. IX: The palate moved symmetrically on phonation. X: She had no hoarseness of voice. XI: The sternocleidomastoids and trapezii functioned normally. XII: The tongue was in the midline without any fasciculations or atrophy. MOTOR SYSTEM: The tone was normal in all four extremities. Examination of muscle mass revealed wasting of the small hand and foot muscles. Examination of power revealed G 5/5 power on the right side. On the left side, she had G 5-/5 power except for G 4-/5 power in the left finger extensors and G 3/5 power in the left iliopsoas. SENSORY EXAMINATION: She had intact sensations to pinprick, light touch, and graphesthesia. COORDINATION: She performed well on [id number] testing on the right side, but she was unable to perform on the left side because of weakness and in addition some clumsiness. REFLEXES: 1+ on the right and 2+ on the left in the biceps, triceps, and brachioradialis, 0 at both knees and ankles. The plantar responses were flexor bilaterally. STANCE: She needed support on both sides to stand up. GAIT: She walked with support on both sides with a left hemiparetic gait. DIAGNOSTIC IMPRESSION: 1. Ms. Teetee Livingston is an 83-year-old, left-handed, black lady, with a past history of multiple medical problems including some left-sided weakness in the past, who was functioning relatively well until 11/21/2018 when she apparently fell when she was getting up from a sofa and could not get herself up for the entire evening and night, and had to wait until the morning when someone helped her up. She also has had some left-sided weakness, but states that she is not weaker than she used to be in the past. 2. On neurological examination at this time, she does have problems with recent and remote memory, visuospatial function, higher cognitive function, and language. She also has a left seventh central facial paresis, significant left hemiparesis involving preferentially the finger extensors and iliopsoas, brisker deep tendon reflexes on the left side compared to the right in the upper extremities with loss of deep tendon reflexes in the lower extremities, a need for support stand, and a need for support to walk with a left hemiparetic gait. 3. An MRI scan of the brain reveals atrophy, deep white matter disease, which is chronic, but no acute pathology. 4. An EEG performed on 11/24/2018 was normal in the awake and drowsy states. 5. Laboratory data obtained thus far have reveal that she is mildly anemic with a hemoglobin of 10.1 G. The chemistry panel revealed mildly elevated blood glucoses, elevated CK which was trending down, and a low albumin at 2.4. Her TSH was normal at 0.86. Her urinalysis was relatively benign. 6. The patient's history, neurological examination, laboratory data, imaging studies, and EEG are most consistent with a mechanical fall related to a significant left hemiparesis. The left hemiparesis is most probably related to old and possibly new small vessel disease, which may have recently become more symptomatic. RECOMMENDATIONS: 1. The patient was given an explanation of the above- mentioned findings. 2. She should be worked up thoroughly for treatable causes of cerebrovascular disease. 3. Her blood pressure should be kept in the physiological range that is < 120/80 mmHg. 4. Physical and occupational therapy for left-sided strengthening exercises and gait retraining should be started. 5. A Lipid panel should be obtained and if the LDL is elevated, the LDL goal should be less than 70. 6. It may be worth considering a brief course of acute rehabilitation, so that the patient can become independent enough to go back home. Thank you for entrusting me with the care of Ms. Livingston. I shall follow her with you. Timmy Clay M.D., M.S.P.H. DR: TAMY JOB#: [id number] [email or web address]
[2018-11-26] VITALS: BP 134/57
[2018-11-26 04:00] VITALS: BP 131/55
[2018-11-26 07:23] LABS: CHOLESTEROL 176 MG/DL (< 200); HDL CHOLESTEROL 71 MG/DL (40-60); TRIGLYCERIDES 83 MG/DL (30-150)
--- NOTE | 2018-11-26 07:53 | NUR ---
NURSE NOTES: Received report from WILL Espitia. Patient in bed resting, no active s/s cardiac, respiratory distress noticed at this time. Patient on room air, AOx3, SR with HR 68. IV on right EJ 18G, asymptomatic, patent, intact. Bed in lowest position, side rails upx2, call light within reach. Will continue to monitor.
--- NOTE | 2018-11-26 07:54 | NUR ---
HAND-OFF: Report given to WILL Duggan.
[2018-11-26 08:00] VITALS: BP 143/73
[2018-11-26] MEDS: BusPIRone 5mg Tab ORAL SCH ×2 (08:12→18:40)
[2018-11-26] MEDS: Benztropine 1mg tab ORAL SCH ×2 (08:12→18:40)
[2018-11-26] MEDS: Cosopt Opth Soln 10 mL Btl BOTH EYES SCH ×2 (08:12→18:40)
[2018-11-26] MEDS: Aspirin EC 81mg tab ORAL SCH (08:13)
--- NOTE | 2018-11-26 09:42 | NUR ---
CASE MANAGEMENT:REVIEW 11/26/18 SI: FALL. GAIT ABNORMALITY DEHYDRATION. SCHIZO DISORDER 97.6 68 18 131/55 94% ON RA IS: CYMBALTA PO QD BUSPAR PO BID LASIX PO QD ASA PO QD COGENTIN PO BID ARICEPT PO QHS : TELEMETRY STATUS DCP: FROM HOME WITH CAREGIVER....MAY NEED SNF
[2018-11-26] MEDS: traMADol 50mg tab ORAL PRN (09:43)
[2018-11-26] MEDS: REVLIMID ORAL SCH (09:43)
[2018-11-26 12:00] VITALS: BP 130/74
[2018-11-26 16:00] VITALS: BP 139/71
--- NOTE | 2018-11-26 16:54 | Neurology Progress Note ---
Interim History Interim History Interim History Ms. Livingston feels better today. Her aberrations are less painful. She feels that her mind is clear. She feels that the strength is a little better but still a little weaker on the left side compared to the right. She denies any new neurological symptoms. Review of Systems Neuro Review of Systems Benign. Objective Physical Exam Last Vital Signs Date Time Temp Pulse Resp B/P (MAP) Pulse Ox O2 Delivery O2 Flow Rate FiO2 11/26/18 12:00 98.0 62 22 130/74 (92) 99 11/26/18 09:00 Room Air Laboratory Tests Test 11/26/18 06:20 Triglycerides Level 83 MG/DL (30-150) Cholesterol Level 176 MG/DL (< 200) LDL Cholesterol 88 mg/dL (<100) HDL Cholesterol 71 MG/DL (40-60) H Cholesterol/HDL Ratio 2.5 (3.3-4.4) L Neurologic Exam Objective PHYSICAL EXAMINATION: GENERAL: She is a well-developed, well-nourished, obese black lady, lying in bed, in no acute distress. HEAD: Normocephalic and atraumatic. EENT: Examination benign. FACE: Had abrasions over it. NECK: No neck rigidity was observed. EXTREMITIES: Abrasions over both knees. NEUROLOGICAL EXAMINATION: MENTAL STATUS EXAMINATION: She was awake and alert. She was oriented to person, place, and time. She was able to recall 3/3 words immediately after 1 minute and 3 minutes on the second trial. She was able to remember presidents, Trump through Brian with hints. Her mathematical skills were impaired. Her visuospatial function was also impaired. SPEECH: She did have a dysarthria, but she was edentulous. LANGUAGE: She had anomic aphasia for low and mid frequency words. CRANIAL NERVE EXAMINATION: II: The visual tom were intact on confrontation testing. III, IV & : The external ocular movements were full and the pupils 3 mm in diameter, and sluggishly reactive to light. V: She had normal facial sensations, and the temporales, masseters, and pterygoids functioned normally. VII: She had a left seventh central facial paresis. VIII: She was able to hear and had no nystagmus. IX: The palate moved symmetrically on phonation. X: She had no hoarseness of voice. XI: The sternocleidomastoids and trapezii functioned normally. XII: The tongue was in the midline without any fasciculations or atrophy. MOTOR SYSTEM: The tone was normal in all four extremities. Examination of muscle mass revealed wasting of the small hand and foot muscles. Examination of power revealed G 5/5 power on the right side. On the left side, she had G 5-/5 power except for G 4-/5 power in the left finger extensors and G 3+/5 power in the left iliopsoas. SENSORY EXAMINATION: She had intact sensations to pinprick, light touch, and graphesthesia. COORDINATION: She performed well on fgbped-pz-plom testing on the right side, but she was unable to perform on the left side because of weakness and in addition some clumsiness. REFLEXES: 1+ on the right and 2+ on the left in the biceps, triceps, and brachioradialis, 0 at both knees and ankles. The plantar responses were flexor bilaterally. STANCE: She needed support on both sides to stand up. GAIT: She walked with support on both sides with a left hemiparetic gait. Impression/Recommendations Diagnostic Impression 1. Ms. Teetee Livingston is an 83-year-old, left-handed, black lady, with a past history of multiple medical problems including some left-sided weakness in the past, who was functioning relatively well until 11/21/2018 when she apparently fell when she was getting up from a sofa and could not get herself up for the entire evening and night, and had to wait until the morning when someone helped her up. She also has had some left-sided weakness, but states that she is not weaker than she used to be in the past. 2. She feels better today. Her aberrations are less painful. She feels that her mind is clear. She feels that the strength is a little better but still a little weaker on the left side compared to the right. She denies any new neurological symptoms. 3. On neurological examination at this time, she does have problems with recent and remote memory, visuospatial function, higher cognitive function, and language. She also has a left seventh central facial paresis, significant left hemiparesis involving preferentially the finger extensors and iliopsoas, brisker deep tendon reflexes on the left side compared to the right in the upper extremities with loss of deep tendon reflexes in the lower extremities, a need for support stand, and a need for support to walk with a left hemiparetic gait. Her left leg is a little stronger. 4. An MRI scan of the brain reveals atrophy, deep white matter disease, which is chronic, but no acute pathology. 5. An EEG performed on 11/24/2018 was normal in the awake and drowsy states. 6. Laboratory data obtained on my initial evaluation revealed that she was mildly anemic with a hemoglobin of 10.1 G. The chemistry panel revealed mildly elevated blood glucoses, elevated CK which was trending down, and a low albumin at 2.4. Her TSH was normal at 0.86. Her urinalysis was relatively benign. 7. The carotid duplex revealed 20% right and 10% left ICA stenosis. 8. The patient's history, neurological examination, laboratory data, imaging studies, and EEG are most consistent with a mechanical fall related to a significant left hemiparesis. The left hemiparesis is most probably related to old and possibly new small vessel disease, which may have recently become more symptomatic. Recommendations 1. The patient was given an explanation of the above-mentioned findings. 2. Her blood pressure should be kept in the physiological range that is < 120/ 80 mmHg. 3. Physical and occupational therapy for left-sided strengthening exercises and gait retraining should be started. 4. It may be worth considering a brief course of acute rehabilitation, so that the patient can become independent enough to go back home. Timmy Clay M.D., M.S.P.H. Timmy Clay MD Nov 26, 2018 16:54
--- NOTE | 2018-11-26 19:27 | Geriatric Progress Note ---
Assessment/Plan Problems: (1) Chronic congestive heart failure (2) Follicular lymphoma (3) Left rotator cuff tear arthropathy (4) Osteoarthritis (5) Abrasion, chin without infection (6) Abrasion of periocular area, right (7) Abrasion of knee, right (8) Fall (9) Dehydration (10) Hypokalemia (11) Gait abnormality (12) Paranoid psychosis (13) Schizoaffective disorder (14) MCI (mild cognitive impairment) Assessment/Plan D/c when SNF bed available at [facility] JOHANNA to abrasions. Mobilize. Continue current tx. Discussed with: patient, hospital staff Subjective Interval Events Patient reports she is "mending". Still with various aches and pains, but controlled on meds per patient. Staff reports intake OK. P.T. documents ambulation 20', 10', FWW, min A. Seen by Dr. lCay who indicates no evidence for ischemic or ictal etiologies for fall. Carotid studies unremarkable as well. Patient notes abrasion over elbow has also opened. Constitutional: Denies: chills, sweats, fever Respiratory: Denies: shortness of breath Cardiovascular: Denies: chest pain, palpitations Gastrointestinal/Abdominal: Denies: abdominal pain Genitourinary: Denies: dysuria Geriatric Geriatric Last 24 Hour Vital Signs Date Time Temp Pulse Resp B/P (MAP) Pulse Ox O2 Delivery O2 Flow Rate FiO2 11/26/18 16:00 97.7 67 21 139/71 (93) 100 11/26/18 16:00 70 11/26/18 12:00 98.0 62 22 130/74 (92) 99 11/26/18 12:00 62 11/26/18 09:00 Room Air 11/26/18 08:00 97.5 71 22 143/73 (96) 100 11/26/18 08:00 67 11/26/18 04:00 65 11/26/18 04:00 97.6 68 18 131/55 (80) 94 11/26/18 00:00 62 11/26/18 00:00 98.3 63 17 134/57 (82) 97 11/25/18 21:00 Room Air 11/25/18 20:00 55 11/25/18 20:00 98.4 60 18 155/69 (97) 100 Intake and Output 11/25/18 11/26/18 19:00 07:00 Intake Total 480 ml Balance 480 ml Intake Oral 480 ml # Voids 4 6 # Bowel Movements 2 Laboratory Tests Test 11/26/18 06:20 Triglycerides Level 83 MG/DL (30-150) Cholesterol Level 176 MG/DL (< 200) LDL Cholesterol 88 mg/dL (<100) HDL Cholesterol 71 MG/DL (40-60) H Cholesterol/HDL Ratio 2.5 (3.3-4.4) L Current Medications Medications (Trade) Dose Ordered Sig/Esthela Route PRN Reason Start Time Stop Time Status Last Admin Dose Admin Acetaminophen (Tylenol) 650 mg Q4H PRN ORAL Mild Pain/Temp > 100.5 11/23/18 00:15 12/23/18 00:14 Aspirin (Ecotrin) 81 mg DAILY ORAL 11/23/18 09:00 12/23/18 08:59 11/26/18 08:13 Benztropine Mesylate (Cogentin) 1 mg BID ORAL 11/23/18 09:00 12/23/18 08:59 11/26/18 18:40 Buspirone HCl (Buspar) 5 mg BID ORAL 11/23/18 09:00 12/23/18 08:59 11/26/18 18:40 Donepezil HCl (Aricept) 10 mg BEDTIME ORAL 11/23/18 00:30 12/23/18 00:29 11/25/18 21:27 Dorzolamide/ Timolol (Cosopt) 1 drop BID BOTH EYES 11/23/18 09:00 12/23/18 08:59 11/26/18 18:40 Duloxetine HCl (Cymbalta) 60 mg DAILY ORAL 11/26/18 09:00 12/23/18 08:59 11/26/18 08:13 Furosemide (Lasix) 60 mg DAILY ORAL 11/23/18 09:00 12/23/18 08:59 11/26/18 08:13 Gadobutrol (Gadavist) 7.5 mmol NOW PRN IV Radiology Procedure 11/24/18 22:00 11/28/18 21:49 Mirtazapine (Remeron) 15 mg BEDTIME ORAL 11/23/18 00:30 12/23/18 00:29 11/25/18 21:27 Patient Own Medication (Patient's Own Med) 1 ea DAILY ORAL 11/26/18 09:00 12/26/18 08:59 11/26/18 09:43 Potassium Chloride (K-Dur) 10 meq TWICE A DAY ORAL 11/23/18 09:00 12/23/18 08:59 11/26/18 18:40 Tramadol HCl (Ultram) 50 mg Q12H PRN ORAL Severe Pain (Pain Scale 7-10) 11/23/18 00:15 11/30/18 00:14 11/26/18 09:43 Height (Feet): 5 Height (Inches): 5.00 Weight (Pounds): 181 General Appearance: alert, non-toxic Head: normocephalic, other - chin, R lateral periocular abrasions healing. Eyes: bilateral anicteric ENT: normal voice Neck: full range of motion, no mass Respiratory: lungs clear Cardiovascular: regular rate, rhythm Gastrointestinal: normal bowel sounds, non tender, soft, no mass, no organomegaly Musculoskeletal: no calf tenderness, other - Open abrasions at R elbow, R lateral knee. Edema: trace edema - LEs Neurologic: no new focality Magdaleno Villegas MD Nov 26, 2018 19:27
--- NOTE | 2018-11-26 19:28 | NUR ---
HAND-OFF: Report given to WILL Espitia.
--- NOTE | 2018-11-26 19:51 | NUR ---
NURSE NOTES: Received pt and report from WILL Duggan. Observed pt resting in bed with both eyes open and watching television. Pt is A/Ox4. classroom monitor is in placed, IV site intact, asymptomatic, and patent. Bed is in the lowest position and locked, call light within reach. Pt is on fall precaution. No signs/symptoms of acute distress noted at this time. Will continue plan of care.
[2018-11-26 20:00] VITALS: BP 143/74
[2018-11-26] MEDS: Donepezil 10mg tab ORAL SCH (20:51)
[2018-11-26] MEDS: Polysporin Oint 15gm TOPIC SCH (21:06)
[2018-11-27] VITALS: BP 124/45
[2018-11-27 04:00] VITALS: BP 115/53
--- NOTE | 2018-11-27 07:25 | NUR ---
NURSE NOTES: RECEIVED BED SIDE REPORT .RECEIVED PT WITH HOB ELEVATED 45 DEGREE AWAKE AND ALERT DENIES CP OR SOB AT THIS TIME. FULL AM BODY ASSESSMENT DONE .PT REPOSITIONED IN BED TO COMFORT .NO ACUTE DISTRESS NOTED AT THIS TIME.WILL CONT TO MONITOR.
[2018-11-27 07:39] LABS: BASOPHILS % (AUTO) 1.2 % (0.0-2.0); EOSINOPHILS % (AUTO) 4.5 % (0.0-3.0); HEMATOCRIT 33.7 % (37.0-47.0); HEMOGLOBIN 11.3 G/DL (12.0-16.0); LYMPHOCYTES % (AUTO) 32.9 % (20.0-45.0); MEAN CORPUSCULAR VOLUME 91 FL (80-99); MONOCYTES % (AUTO) 10.4 % (1.0-10.0); PLATELET COUNT 253 K/UL (150-450); RED BLOOD COUNT 3.71 M/UL (4.20-5.40); RED CELL DISTRIBUTION WIDTH 12.8 % (11.6-14.8); WHITE BLOOD COUNT 3.8 K/UL (4.8-10.8)
[2018-11-27 07:57] LABS: ALANINE AMINOTRANSFERASE 28 U/L (12-78); ALBUMIN 2.7 G/DL (3.4-5.0); ALBUMIN/GLOBULIN RATIO 0.7 (1.0-2.7); ALKALINE PHOSPHATASE 64 U/L (46-116); ANION GAP 7 mmol/L (5-15); ASPARTATE AMINO TRANSFERASE 22 U/L (15-37); BILIRUBIN,TOTAL 0.4 MG/DL (0.2-1.0); BLOOD UREA NITROGEN 6 mg/dL (7-18); CARBON DIOXIDE 28 MMOL/L (21-32); CHLORIDE 101 MMOL/L (98-107); CREATININE 0.7 MG/DL (0.55-1.30); POTASSIUM 4.2 MMOL/L (3.5-5.1); SODIUM 136 MMOL/L (136-145)
[2018-11-27 08:00] VITALS: BP 149/68
--- NOTE | 2018-11-27 08:00 | NUR ---
DISCHARGE PLANNING PATIENT WAS REFERRED TO [facility] T: [phone] WAITING FOR ACCEPTANCE AND ROOM NUMBER Addendum: 11/27/18 at 0957 by NAY HAMILTON LVN LVN MESSAGE LEFT FOR KEY ACCOUNT DIRECTOR, ANTONIO, AT [facility] WAITING FOR CALL BACK REGARDING BED STATUS
--- NOTE | 2018-11-27 08:09 | NUR ---
HAND-OFF: Report given to WILL Beal.
--- NOTE | 2018-11-27 09:32 | Neurology Progress Note ---
Interim History Interim History Interim History Ms. Livingston feels better. The scrapes over her face and knees are less painful. She slept well last night. She is working with the physical therapist right now and feels that she may be a little stronger. The left side however continues to be weaker than the right. The mind is clear. She does feel unsteady when she stands and walks. She denies any new neurological problems. Review of Systems Neuro Review of Systems Benign. Objective Physical Exam Last Vital Signs Date Time Temp Pulse Resp B/P (MAP) Pulse Ox O2 Delivery O2 Flow Rate FiO2 11/27/18 08:00 99.2 79 16 149/68 (95) 99 11/26/18 21:00 Room Air Laboratory Tests Test 11/27/18 06:21 White Blood Count 3.8 K/UL (4.8-10.8) L Red Blood Count 3.71 M/UL (4.20-5.40) L Hemoglobin 11.3 G/DL (12.0-16.0) L Hematocrit 33.7 % (37.0-47.0) L Mean Corpuscular Volume 91 FL (80-99) Mean Corpuscular Hemoglobin 30.4 PG (27.0-31.0) Mean Corpuscular Hemoglobin Concent 33.5 G/DL (32.0-36.0) Red Cell Distribution Width 12.8 % (11.6-14.8) Platelet Count 253 K/UL (150-450) Mean Platelet Volume 5.5 FL (6.5-10.1) L Neutrophils (%) (Auto) 51.0 % (45.0-75.0) Lymphocytes (%) (Auto) 32.9 % (20.0-45.0) Monocytes (%) (Auto) 10.4 % (1.0-10.0) H Eosinophils (%) (Auto) 4.5 % (0.0-3.0) H Basophils (%) (Auto) 1.2 % (0.0-2.0) Sodium Level 136 MMOL/L (136-145) Potassium Level 4.2 MMOL/L (3.5-5.1) Chloride Level 101 MMOL/L (98-107) Carbon Dioxide Level 28 MMOL/L (21-32) Anion Gap 7 mmol/L (5-15) Blood Urea Nitrogen 6 mg/dL (7-18) L Creatinine 0.7 MG/DL (0.55-1.30) Estimat Glomerular Filtration Rate mL/min (>60) Glucose Level 91 MG/DL (74-106) Calcium Level 9.0 MG/DL (8.5-10.1) Total Bilirubin 0.4 MG/DL (0.2-1.0) Aspartate Amino Transf (AST/SGOT) 22 U/L (15-37) Alanine Aminotransferase (ALT/SGPT) 28 U/L (12-78) Alkaline Phosphatase 64 U/L (46-116) Total Protein 6.6 G/DL (6.4-8.2) Albumin 2.7 G/DL (3.4-5.0) L Globulin 3.9 g/dL Albumin/Globulin Ratio 0.7 (1.0-2.7) L Neurologic Exam Objective PHYSICAL EXAMINATION: GENERAL: She is a well-developed, well-nourished, obese black lady, sitting up at the edge of the bed, in no acute distress. HEAD: Normocephalic and atraumatic. EENT: Examination benign. FACE: Had abrasions over it. NECK: No neck rigidity was observed. EXTREMITIES: Abrasions over both knees. NEUROLOGICAL EXAMINATION: MENTAL STATUS EXAMINATION: She was awake and alert. She was oriented to person, place, and time. She was able to recall 3/3 words immediately after 1 minute and 3 minutes on the second trial. She was able to remember presidents, Trump through Brian with hints. Her mathematical skills were impaired. Her visuospatial function was also impaired. SPEECH: She did have a dysarthria, but she was edentulous. LANGUAGE: She had anomic aphasia for low and mid frequency words. CRANIAL NERVE EXAMINATION: II: The visual tom were intact on confrontation testing. III, IV & : The external ocular movements were full and the pupils 3 mm in diameter, and sluggishly reactive to light. V: She had normal facial sensations, and the temporales, masseters, and pterygoids functioned normally. VII: She had a left seventh central facial paresis. VIII: She was able to hear and had no nystagmus. IX: The palate moved symmetrically on phonation. X: She had no hoarseness of voice. XI: The sternocleidomastoids and trapezii functioned normally. XII: The tongue was in the midline without any fasciculations or atrophy. MOTOR SYSTEM: The tone was normal in all four extremities. Examination of muscle mass revealed wasting of the small hand and foot muscles. Examination of power revealed G 5/5 power on the right side. On the left side, she had G 5-/5 power except for G 4/5 power in the left finger extensors and G 3+/5 power in the left iliopsoas. SENSORY EXAMINATION: She had intact sensations to pinprick, light touch, and graphesthesia. COORDINATION: She performed well on oumodp-qu-[id number] testing on the right side, but she was unable to perform on the left side because of weakness and in addition some clumsiness. REFLEXES: 1+ on the right and 2+ on the left in the biceps, triceps, and brachioradialis, 0 at both knees and ankles. The plantar responses were flexor bilaterally. STANCE: She needed support on one side to stand up. GAIT: She walked with support with the help of walker with a left hemiparetic gait. Impression/Recommendations Diagnostic Impression 1. Ms. Teetee Livingston is an 83-year-old, left-handed, black lady, with a past history of multiple medical problems including some left-sided weakness in the past, who was functioning relatively well until 11/21/2018 when she apparently fell when she was getting up from a sofa and could not get herself up for the entire evening and night, and had to wait until the morning when someone helped her up. She also has had some left-sided weakness, but states that she is not weaker than she used to be in the past. 2. She feels better. The scrapes over her face and knees are less painful. She slept well last night. She is working with the physical therapist right now and feels that she may be a little stronger. The left side however continues to be weaker than the right. The mind is clear. She does feel unsteady when she stands and walks. She denies any new neurological problems. 3. On neurological examination at this time, she does have problems with recent and remote memory, visuospatial function, higher cognitive function, and language. She also has a left seventh central facial paresis, significant left hemiparesis involving preferentially the finger extensors and iliopsoas, brisker deep tendon reflexes on the left side compared to the right in the upper extremities with loss of deep tendon reflexes in the lower extremities, a need for support stand, and a need for support to walk with a left hemiparetic gait. Her left leg and hand have improved with regards to strength. 4. An MRI scan of the brain reveals atrophy, deep white matter disease, which is chronic, but no acute pathology. 5. An EEG performed on 11/24/2018 was normal in the awake and drowsy states. 6. Laboratory data obtained on my initial evaluation revealed that she was mildly anemic with a hemoglobin of 10.1 G. The chemistry panel revealed mildly elevated blood glucoses, elevated CK which was trending down, and a low albumin at 2.4. Her TSH was normal at 0.86. Her urinalysis was relatively benign. 7. The carotid duplex revealed 20% right and 10% left ICA stenosis. 8. The patient's history, neurological examination, laboratory data, imaging studies, and EEG are most consistent with a mechanical fall related to a significant left hemiparesis. The left hemiparesis is most probably related to old and possibly new small vessel disease, which may have recently become more symptomatic. Recommendations 1. The patient was given an explanation of the above-mentioned findings. 2. Her blood pressure should be kept in the physiological range that is < 120/ 80 mmHg. 3. Continue physical and occupational therapy for left-sided strengthening exercises and gait retraining. 4. It may be worth considering a brief course of acute rehabilitation, so that the patient can become independent enough to go back home. Timmy Clay M.D., M.S.P.H. Timmy Clay MD Nov 27, 2018 09:32
[2018-11-27] MEDS: Benztropine 1mg tab ORAL SCH ×2 (10:59→17:46)
[2018-11-27] MEDS: BusPIRone 5mg Tab ORAL SCH ×2 (11:00→17:46)
[2018-11-27] MEDS: Aspirin EC 81mg tab ORAL SCH (11:01)
[2018-11-27] MEDS: Polysporin Oint 15gm TOPIC SCH ×2 (11:02→17:46)
[2018-11-27] MEDS: REVLIMID ORAL SCH (11:02)
[2018-11-27] MEDS: Cosopt Opth Soln 10 mL Btl BOTH EYES SCH ×2 (11:05→17:46)
[2018-11-27] MEDS: traMADol 50mg tab ORAL PRN (11:10)
[2018-11-27 12:00] VITALS: BP 147/70
--- NOTE | 2018-11-27 12:57 | Diagnostic Imaging Report ---
APPROVED REPORT CPT Code: 98362 Vascular Symptoms Syncope Doppler Spectral Velocity Analysis RightLeft RIGHT SIDE: CCA - Imaging reveals no significant plaque in the common carotid arteries, external carotid arteries. The Doppler signal indicates the degree of stenosis is minimal (20%) in the internal and external carotid arteries. VERTEBRAL- The vertebral artery was not well visualized. The subclavian artery was patent. LEFT SIDE: CCA/ECA - Imaging reveals no significant plaque in the common carotid and external carotid arteries. ICA - Imaging reveals irregular plaque in the internal carotid artery. The Doppler signal indicates the degree of stenosis is minimal (10%) in the internal carotid artery. VERTEBRAL/SUBCLAVIAN- The vertebral and subclavian arteries are within normal limits.
--- NOTE | 2018-11-27 14:31 | Geriatric Progress Note ---
Assessment/Plan Problems: (1) Chronic congestive heart failure (2) Follicular lymphoma (3) Left rotator cuff tear arthropathy (4) Osteoarthritis (5) Abrasion, chin without infection (6) Abrasion of periocular area, right (7) Abrasion of knee, right (8) Fall (9) Dehydration (10) Hypokalemia (11) Gait abnormality (12) Paranoid psychosis (13) Schizoaffective disorder (14) MCI (mild cognitive impairment) Assessment/Plan Continues to gradually improve. Superficial abrasions on treatment. Mobilizing with P.T. Expect discharge to SNF for rehab. Discussed with: patient, hospital staff Subjective Interval Events Patient reports doing well. As usual c/o pain, but reports analgesia is adequate. Eating well. Ambulated with P.T. Labs stabilizing. Constitutional: Denies: chills, sweats, fever Respiratory: Denies: shortness of breath Cardiovascular: Denies: chest pain, palpitations Gastrointestinal/Abdominal: Denies: abdominal pain Genitourinary: Denies: dysuria Geriatric Geriatric Last 24 Hour Vital Signs Date Time Temp Pulse Resp B/P (MAP) Pulse Ox O2 Delivery O2 Flow Rate FiO2 11/27/18 11:40 99.2 11/27/18 08:00 99.2 79 16 149/68 (95) 99 11/27/18 04:00 98.3 65 18 115/53 (73) 95 11/27/18 04:00 64 11/27/18 00:00 98.1 63 17 124/45 (71) 96 11/27/18 00:00 68 11/26/18 21:00 Room Air 11/26/18 20:00 65 11/26/18 20:00 97.9 62 19 143/74 (97) 98 11/26/18 16:00 97.7 67 21 139/71 (93) 100 11/26/18 16:00 70 Intake and Output 11/26/18 11/27/18 18:59 06:59 Intake Total 240 ml Output Total 150 ml Balance 90 ml Intake Oral 240 ml Output Urine Total 150 ml # Voids 6 3 # Bowel Movements 1 Laboratory Tests Test 11/27/18 06:21 White Blood Count 3.8 K/UL (4.8-10.8) L Red Blood Count 3.71 M/UL (4.20-5.40) L Hemoglobin 11.3 G/DL (12.0-16.0) L Hematocrit 33.7 % (37.0-47.0) L Mean Corpuscular Volume 91 FL (80-99) Mean Corpuscular Hemoglobin 30.4 PG (27.0-31.0) Mean Corpuscular Hemoglobin Concent 33.5 G/DL (32.0-36.0) Red Cell Distribution Width 12.8 % (11.6-14.8) Platelet Count 253 K/UL (150-450) Mean Platelet Volume 5.5 FL (6.5-10.1) L Neutrophils (%) (Auto) 51.0 % (45.0-75.0) Lymphocytes (%) (Auto) 32.9 % (20.0-45.0) Monocytes (%) (Auto) 10.4 % (1.0-10.0) H Eosinophils (%) (Auto) 4.5 % (0.0-3.0) H Basophils (%) (Auto) 1.2 % (0.0-2.0) Sodium Level 136 MMOL/L (136-145) Potassium Level 4.2 MMOL/L (3.5-5.1) Chloride Level 101 MMOL/L (98-107) Carbon Dioxide Level 28 MMOL/L (21-32) Anion Gap 7 mmol/L (5-15) Blood Urea Nitrogen 6 mg/dL (7-18) L Creatinine 0.7 MG/DL (0.55-1.30) Estimat Glomerular Filtration Rate mL/min (>60) Glucose Level 91 MG/DL (74-106) Calcium Level 9.0 MG/DL (8.5-10.1) Total Bilirubin 0.4 MG/DL (0.2-1.0) Aspartate Amino Transf (AST/SGOT) 22 U/L (15-37) Alanine Aminotransferase (ALT/SGPT) 28 U/L (12-78) Alkaline Phosphatase 64 U/L (46-116) Total Protein 6.6 G/DL (6.4-8.2) Albumin 2.7 G/DL (3.4-5.0) L Globulin 3.9 g/dL Albumin/Globulin Ratio 0.7 (1.0-2.7) L Current Medications Medications (Trade) Dose Ordered Sig/Esthela Route PRN Reason Start Time Stop Time Status Last Admin Dose Admin Acetaminophen (Tylenol) 650 mg Q4H PRN ORAL Mild Pain/Temp > 100.5 11/23/18 00:15 12/23/18 00:14 Aspirin (Ecotrin) 81 mg DAILY ORAL 11/23/18 09:00 12/23/18 08:59 11/27/18 11:01 Bacitracin/ Polymyxin B Sulfate (Polysporin Oint) 1 applic BID TOPIC 11/26/18 21:00 12/26/18 20:59 11/27/18 11:02 Benztropine Mesylate (Cogentin) 1 mg BID ORAL 11/23/18 09:00 12/23/18 08:59 11/27/18 10:59 Buspirone HCl (Buspar) 5 mg BID ORAL 11/23/18 09:00 12/23/18 08:59 11/27/18 11:00 Donepezil HCl (Aricept) 10 mg BEDTIME ORAL 11/23/18 00:30 12/23/18 00:29 11/26/18 20:51 Dorzolamide/ Timolol (Cosopt) 1 drop BID BOTH EYES 11/23/18 09:00 12/23/18 08:59 11/27/18 11:05 Duloxetine HCl (Cymbalta) 60 mg DAILY ORAL 11/26/18 09:00 12/23/18 08:59 11/27/18 11:00 Furosemide (Lasix) 60 mg DAILY ORAL 11/23/18 09:00 12/23/18 08:59 11/27/18 11:00 Gadobutrol (Gadavist) 7.5 mmol NOW PRN IV Radiology Procedure 11/24/18 22:00 11/28/18 21:49 Mirtazapine (Remeron) 15 mg BEDTIME ORAL 11/23/18 00:30 12/23/18 00:29 11/26/18 20:51 Patient Own Medication (Patient's Own Med) 1 ea DAILY ORAL 11/26/18 09:00 12/26/18 08:59 11/27/18 11:02 Potassium Chloride (K-Dur) 10 meq TWICE A DAY ORAL 11/23/18 09:00 12/23/18 08:59 11/27/18 11:00 Tramadol HCl (Ultram) 50 mg Q12H PRN ORAL Severe Pain (Pain Scale 7-10) 11/23/18 00:15 11/30/18 00:14 11/27/18 11:10 Height (Feet): 5 Height (Inches): 5.00 Weight (Pounds): 181 General Appearance: alert, non-toxic Head: normocephalic, other - R periorbital, chin abrasions healing. Eyes: bilateral anicteric ENT: normal voice Neck: full range of motion, no mass Respiratory: lungs clear Cardiovascular: regular rate, rhythm Gastrointestinal: normal bowel sounds, non tender, soft, no mass, no organomegaly Musculoskeletal: no calf tenderness Edema: no edema noted Generalized Edema: moderate edema Neurologic: no new focality Magdaleno Villegas MD Nov 27, 2018 14:31
[2018-11-27 16:00] VITALS: BP 129/68
--- NOTE | 2018-11-27 16:02 | NUR ---
DISCHARGE PLANNING UPDATE THIS [employer] HAS BEEN IN COMMUNICATION WITH [facility] THEY WILL NOT GIVE BED NUMBER UNTIL THEY SPEAK WITH PATIENT'S DAUGHTER ABOUT OUTPATIENT F/U
--- NOTE | 2018-11-27 16:12 | NUR ---
DISCHARGE PLANNED PATIENT IS DISCHARGING TO [facility] RO[facility] [address] T: [phone] FOR NURSE TO NURSE REPORT [facility] 1800 GLUING MACHINE OPERATOR ELECTRONIC TRANSFER FORM COMPLETED Addendum: 11/28/18 at 1030 by OMID YOUNG CM SKILLED
--- NOTE | 2018-11-27 16:35 | NUR ---
HAND-OFF: Report given to .MIN RN
--- NOTE | 2018-11-27 18:00 | NUR ---
HAND-OFF: Report given to Ilsa SOLIS. Pt remains stable
--- NOTE | 2018-11-27 19:58 | NUR ---
NURSE NOTES: Received patient from WILL Nazario. Patient alert, talkative, and resting in bed comfortably. No signs of distress or pain. Patient able to make needs known. IV site checked, intact and patent, no signs of erythema, bleeding, or infiltration. Patient awaiting [facility] transportation for discharge. Bed in lowest position, brakes on, and call light within reach. Will continue with plan of care.
[2018-11-27 20:00] VITALS: BP 114/70
--- NOTE | 2018-11-27 20:18 | NUR ---
NURSE NOTES: Called [facility] services to obtain an ETA for transportation for patient, spoke to Elfego and said an estimated picker tender time at 2100. Will continue with plan of care.
--- NOTE | 2018-11-27 22:08 | NUR ---
NURSE NOTES: Patient was discharged to [facility] via draw sheet method, 3 ambulance staff member assist without incident. No signs of acute distress noted; administered Tylenol for pain per patient's request. Vital signs stable upon discharge. Patient was taken off Tele box and d/c'ed from IV site; tolerated well. Belongings list checked with patient. Discharge packet with medications given and explained to ambulance staff; verbalized understanding.
--- NOTE | 2018-11-28 18:28 | Discharge Summary ---
Discharge Summary Discharge Summary _ Date of Admission: November 22, 2018. Date of Discharge: November 27, 2018. Discharge Diagnoses: 1. Unwitnessed fall, with reported maintenance of consciousness, apparently mechanical in etiology. 2. Multiple contusions and abrasions due to fall, with no evidence of fracture, including abrasion to right lateral face in periocular area, chin, right elbow, right lateral knee. 3. Mild rhabdomyolysis associated with fall, and prolonged immobility. 4. 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 5. Follicular lymphoma, s/p chemotherapy, with course of Revlimid cycling 3 weeks on and 1 week off. 6. Prior episode of mild hyponatremia, resolved. Etiology secondary to psychiatric medications versus psychogenic polydipsia versus volume depletion. 7. Mild cognitive impairment. 8. History of prior syncope, felt to be vasovagal associated with volume depletion. 9. History of prior rhabdomyolysis associated with fall. 10. Prior episodes of electrolyte disorder with hyponatremia and hypokalemia. 11. Episode of transient exacerbation of left hemiparesis without evidence new focal neurologic findings, felt to be secondary to mechanical injury. 12. Gait instability. 13. Glaucoma. 14. Venous insufficiency with episodic dependent edema. 15. Obesity. 16. Osteoarthritis. 17. Osteoporosis. 18. Vitamin D deficiency. 19. 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 20. Status post cholecystectomy for biliary colic. 21. Urinary frequency. 22. Status post hysterectomy. 23. History of left breast lipoma resection. 24. Status post tonsillectomy and adenoidectomy. 25. Status post bladder suspension with episodic urinary incontinence. 26. Status post soft tissue resection from right arm. 27. Status post Bartholin's abscess drainage with recurrent vaginolabial abscesses. Medications: 1. Revlimid 20mg daily, cycled 3 weeks on, 1 week off. 2. Mirtazapine 15 mg nightly. 3. Lumigan 0.01% 1 drop OU nightly. 4. Cosopt 2/0.5% 1 drop OU twice daily. 5. Toviaz 8 mg daily. 6. Lasix 60 mg daily. 7. Potassium chloride 10 mEq twice daily. 8. Aspirin 81 mg daily. 9. Benztropine 1 mg twice daily. 10. Invega 3 mg p.o. daily. 11. Invega monthly [address] Carpenter. 12. Buspirone 5 mg twice a day. 13. Duloxetine 60 mg daily. 14. Acetaminophen 500 mg every 6 hours as needed. 15. Fosamax 70 mg every week. 16. Donepezil 10 mg daily. 17. Zegerid 20 mg daily. 18. Centrum Silver for Women. Allergies: Reported intolerances to ibuprofen and codeine. History of Present Illness: Ms. Livingston is an 82-year-old woman who was brought to the emergency department at [facility] after a fall at home and inability to get off the floor, resulting in being on the floor for over 12 hours before being discovered by her caregiver. In the emergency department Ms. Livingston was noted to have generalized weakness, complaints of pain, and multiple abrasions and contusions. Radiologic studies including a head CT failed to show evidence of acute neurologic injury or any fractures. Because of her weakness and the uncertain etiology of the fall, the patient was admitted for further evaluation and treatment. Details of the history and physical examination are per the dictation of November 22, 2018. Hospital Course: Ms. Livingston on admission had multiple areas of abrasion and contusion none of which appeared to be open. However, there were several areas where the skin integrity was compromised associated with the abrasions and underlying swelling leading to open wounds with superficial depth and multiple areas. These were treated with local dressings, with no evidence of infection or complication at the time of discharge. Ms. Livingston's laboratory data is failed to reveal any significant abnormalities except for a moderately elevated CPK, which in retrospect appears to be attributable to the extended period of time she is been on the floor. The elevation resolved relatively quickly on follow-up lab tests. Despite the complaints of significant pain in multiple areas, radiologic studies failed to reveal an evidence of fracture or major trauma. The patient has a history of chronic pain complaints and neuropathic symptoms, as well as musculoskeletal chronic injuries including prior left shoulder rotator cuff injury. A great deal of the pain appears to be consistent with the patient's baseline complaints. With institution of the patient's usual regimen including tramadol and duloxetine as well as her psychiatric medications, the symptoms appeared to be adequately managed. Because of what appeared to be an exacerbation of left-sided weakness, MRI of the brain was obtained along with the EEG. Neurologic consultation from Dr. Clay was requested as well. No objective findings of acute process were noted, and Dr. Clay felt that the fall was primarily mechanical in etiology. Ms. Livingston's oncologic status was reviewed with Dr. Chelsey Vivas who indicated she was on cycles of Revlimid. This was initiated when the medication was brought in by the family. Ms. Livingston was also scheduled to receive a monthly injection of Invega. This was not available through the hospital formulary so that it will be given after discharge. Initially there was some evidence of increased anxiety and confusion , but the patient's cognitive status and psychiatric symptoms appeared to stabilize on her usual medications. The patient was mobilized with physical therapy. Although initially she had very limited mobility, there was some slow improvement during the course. At the time of discharge the patient remained unsteady with limited mobility. Situation was discussed with the patient her daughter and her caregiver, and it was agreed that Ms. Livingston would benefit from a course of rehabilitation at a [place] [facility]. The patient is being discharged to [facility] where she will be seen in follow-up. Magdaleno Villegas MD Nov 28, 2018 18:28
== END 2018-11-27 21:50 | DRG 57 ==
LOC: EMR 19:34 → 2E 21:25 → EDBEDREQ 22:34
DX: I69.354 Hemiplegia and hemiparesis following cerebral infarction affecting left non-dominant side (principal); M62.82 Rhabdomyolysis; F20.0 Paranoid schizophrenia; C82.90 Follicular lymphoma, unspecified, unspecified site; E87.6 Hypokalemia; Z88.6 Allergy status to analgesic agent; S00.81XA Abrasion of other part of head, initial encounter; S00.211A Abrasion of right eyelid and periocular area, initial encounter; S80.211A Abrasion, right knee, initial encounter; S50.311A Abrasion of right elbow, initial encounter; W19.XXXA Unspecified fall, initial encounter; Y92.038 Other place in apartment as the place of occurrence of the external cause; H40.9 Unspecified glaucoma; G31.84 Mild cognitive impairment of uncertain or unknown etiology; Z91.81 History of falling; R26.9 Unspecified abnormalities of gait and mobility; M81.0 Age-related osteoporosis without current pathological fracture; Z79.899 Other long term (current) drug therapy; I50.9 Heart failure, unspecified; M12.812 Other specific arthropathies, not elsewhere classified, left shoulder; R47.1 Dysarthria and anarthria; G51.0 Bell's palsy; I87.2 Venous insufficiency (chronic) (peripheral); E55.9 Vitamin D deficiency, unspecified; E66.9 Obesity, unspecified; R35.0 Frequency of micturition; Z79.82 Long term (current) use of aspirin
CPT/HCPCS: 36415; 70450; 70553; 72125; 80048; 80053; 80061; 81003; 82550; 83036; 83735; 83880; 84443; 84484; 84550; 85025; 85610; 85651; 85730; 86592; 93005; 93880; 95819; 99285; A9585

== ENCOUNTER 2020-04-05 11:14 | Emergency (ER) | payer MEDICARE, OTHER ==
[~2020-04-05] VITALS: Ht 162.6 cm; Wt 95.3 kg
[~2020-04-05 11:14] MED LIST changes: +POTASSIUM CHLO10 ME2 PO
[2020-04-05 11:30] VITALS: BP 144/68
--- NOTE | 2020-04-05 11:51 | Emergency Room Report ---
History of Present Illness General Chief Complaint: Multiple Trauma/Fall Source: Patient Present Illness HPI Patient fell back on the couch earlier this morning. She had a in-home helper at the time. She fell onto her left chest and has severe pain there. Is pleuritic. She rates it 10/10 at this time. She denies any hemoptysis or fever. There is no productive cough. There was no loss of consciousness. She denies pain in other parts of her body. The patient denies exposure to Covid positive contacts. No sore throat, palpitations, nausea, vomiting, diarrhea, dysuria, abdominal pain, rashes, depression, anxiety, visual changes, dizziness, headache. Patient is post CVA and has a history of rheumatoid arthritis. Allergies: Coded Allergies: CODEINE (Verified Allergy, Severe, BREAKS OUT IN BUMPS, SWELLING, 10/13/12) IBUPROFEN (Verified Adverse Reaction, Unknown, GI UPSET / VOMITTING, 07/22/14) Uncoded Allergies: MOLTRIN (Allergy, Unknown, RASH,NAUSEA, 02/24/16) COVID-19 Screening Contact w/high risk pt: No Experienced COVID-19 symptoms?: No COVID-19 Testing performed ALUMINUM SIDING APPLICATOR: Yes COVID-19 Screening: Negative COVID-19 COVID-19 Testing Source: SMOKING TOBACCO PACKING MACHINE HAND Patient History Past Medical History: see triage record Past Surgical History: elieser, hysterectomy, other - Cataract surgery Social History: Denies: smoking Social History Narrative 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 Reviewed Nursing Documentation: PMH: Agreed; PSxH: Agreed Nursing Documentation-PMH Past Medical History: No History, Except For Hx Cardiac Problems: Yes - ACS Hx Hypertension: Yes Hx Pacemaker: No Hx Asthma: No Hx COPD: No Hx Diabetes: No Hx Cancer: Yes - Lymphoma Hx Dialysis: No Hx Cerebrovascular Accident: Yes - 2010 Hx Dementia: Yes Hx Seizures: No Hx Speech Problem: Yes Hx Dizziness: Yes Hx Headaches: Yes Hx Fatigue: Yes Review of Systems All Other Systems: negative except mentioned in HPI Physical Exam Vital Signs Date Time Temp Pulse Resp B/P (MAP) Pulse Ox O2 Delivery O2 Flow Rate FiO2 04/05/20 11:24 98.1 68 20 144/68 (93) 100 Room Air Sp02 EP Interpretation: reviewed, normal General Appearance: well appearing, no apparent distress, GCS 15, non-toxic Head: normocephalic, atraumatic Eyes: bilateral eye other - Silastic lenses ENT: moist mucus membranes Neck: full range of motion, supple, no bony tend Respiratory: lungs clear, normal breath sounds, other - Tenderness left ribs approximately fifth and sixth without crepitance Cardiovascular #1: regular rate, rhythm, edema - Minimal lower extremities but with thickness Cardiovascular #2: 2+ radial (R) Gastrointestinal: normal inspection, normal bowel sounds, non tender, no mass, non-distended, overweight Musculoskeletal: back normal, normal range of motion, no calf tenderness, gait/station normal Neurologic: alert, oriented x3, grossly normal Psychiatric: mood/affect normal Skin: no rash, warm/dry Medical Decision Making Diagnostic Impression: Primary Impression: Fall Qualified Codes: W19.XXXA - Unspecified fall, initial encounter Additional Impression: Chest wall contusion Qualified Codes: S20.212A - Contusion of left front wall of thorax, initial encounter ER Course Patient presents with a nonsyncopal fall onto a couch complaining of left-sided chest pain. Differential includes fracture, contusion, pneumothorax. As she is complaining of a left-sided chest pain EKG and labs are indicated. Patient is placed on a audit mgr. In addition CT of the chest is ordered. The patient will be treated with morphine and Zofran. EKG normal. Labs essentially normal. CT of the chest with calcifications. No acute fracture or pneumothorax. Interim L1 fracture. See report below. The patient has no pain in the L1 area. Patient improved with treatment. Discussed plan for analgesia at home with her primary physician. He states that she occasionally takes more tramadol than what he is prescribed but she has a supply at this time and is taking 50 mg twice a day. He advised that she increase the dose to 50 mg 3 times a day. (He also states that the pilot likes to take tramadol.) Discussed treatment plan with patient. Patient is improved. Patient stable for outpatient observation and treatment. Laboratory Tests Test 04/05/20 12:00 White Blood Count 4.8 K/UL (4.8-10.8) Red Blood Count 3.40 M/UL (4.20-5.40) L Hemoglobin 10.7 G/DL (12.0-16.0) L Hematocrit 32.4 % (37.0-47.0) L Mean Corpuscular Volume 95 FL (80-99) Mean Corpuscular Hemoglobin 31.3 PG (27.0-31.0) H Mean Corpuscular Hemoglobin Concent 32.9 G/DL (32.0-36.0) Red Cell Distribution Width 12.8 % (11.6-14.8) Platelet Count 268 K/UL (150-450) Mean Platelet Volume 5.5 FL (6.5-10.1) L Neutrophils (%) (Auto) 52.2 % (45.0-75.0) Lymphocytes (%) (Auto) 34.7 % (20.0-45.0) Monocytes (%) (Auto) 9.1 % (1.0-10.0) Eosinophils (%) (Auto) 2.8 % (0.0-3.0) Basophils (%) (Auto) 1.1 % (0.0-2.0) Prothrombin Time 11.7 SEC (9.30-11.50) H Prothrombin Time INR 1.1 (0.9-1.1) Activated Partial Thromboplast Time 28 SEC (23-33) Sodium Level 134 MMOL/L (136-145) L Potassium Level 3.9 MMOL/L (3.5-5.1) Chloride Level 99 MMOL/L (98-107) Carbon Dioxide Level 30 MMOL/L (21-32) Anion Gap 6 mmol/L (5-15) Blood Urea Nitrogen 8 mg/dL (7-18) Creatinine 0.7 MG/DL (0.55-1.30) Estimated Glomerular Filtration Rate > 60 mL/min (>60) Glucose Level 105 MG/DL (74-106) Calcium Level 8.8 MG/DL (8.5-10.1) Total Bilirubin 0.3 MG/DL (0.2-1.0) Aspartate Amino Transferase (AST) 16 U/L (15-37) Alanine Aminotransferase (ALT) 17 U/L (12-78) Alkaline Phosphatase 63 U/L (46-116) Total Protein 7.2 G/DL (6.4-8.2) Albumin 3.1 G/DL (3.4-5.0) L Globulin 4.1 g/dL Albumin/Globulin Ratio 0.8 (1.0-2.7) L EKG Diagnostic Results Rate: normal Rhythm: NSR ST Segments: no acute changes Rhythm Strip Diag. Results EP Interpretation: yes Rhythm: NSR, no PVC's, no ectopy CT/MRI/US Diagnostic Results CT/MRI/US Diagnostic Results : Imaging Test Ordered: Chest Impression Impression: L1 vertebral body compression fracture, acuity indeterminate but new since the prior abdomen and pelvis CT scan of 10/10/2017. Consider MRI for better characterization if this is considered clinically relevant No other acute bony trauma. Note old L1 vertebral body compression fracture No evidence of significant soft tissue contusion, hematoma, or pulmonary parenchymal contusion Noncalcified left upper lobe pulmonary nodule an several small noncalcified nodules in the right upper lobe. If patient is at high risk for lung carcinoma, this should be followed up in 6-12 months. If patient is at low risk then no further follow-up is necessary Evidence of old granulomatous disease within the right lung. Mildly dilated gas filled proximal esophagus, probably on basis of age-related dysmotility Last Vital Signs Date Time Temp Pulse Resp B/P (MAP) Pulse Ox O2 Delivery O2 Flow Rate FiO2 04/05/20 14:50 98.0 78 18 136/78 99 Room Air Status: improved Disposition: HOME, SELF-CARE Condition: Improved Scripts Lidocaine Patch* (Lidoderm Patch*) 1 Each Adh..patch 1 PATCH TOPIC DAILY, #7 PATCH 0 Refills Patch(es) may remain in place for up to 12 hours in any 24-hour period. Prov: Benito Brown MD 04/05/20 Benito Brown MD Apr 05, 2020 11:51
[2020-04-05] MEDS ORDERED: Morphine Sulfate 2mg/ml Inj(IV/IM USE ONLY) IVP ONE (12:00)
[2020-04-05] MEDS ORDERED: Morphine Sulfate 2mg/ml Inj(IV/IM USE ONLY) IM ONE (12:30)
--- NOTE | 2020-04-05 12:56 | Diagnostic Imaging Report ---
Clinical Indication: Chest trauma, chest pain Technique: Spiral acquisitions obtained through the chest. No IV contrast utilized, reason not stated. Multiplanar reconstructions generated. Total dose length product 234 mGycm. CTDIvol(s) 5 mGy. Dose reduction achieved using automated exposure control Comparison: none Findings: There is a compression fracture of the L1 vertebral body, with slight anterior wedging but predominantly superior endplate involvement. There is also a superior endplate compression fracture deformity of the T12 vertebral body. The L1 abnormality was evident on a prior abdomen pelvis CT scan of 10/10/2017. The T12 fracture is a new finding since that time. No other fractures. No evidence of significant soft tissue contusion. The lungs demonstrate a calcified granuloma in the right middle lobe. There is generalized slight mosaic attenuation pattern. There is some scarring with calcification at the left lung apex. No infiltrates or effusions. There is a 5 mm noncalcified nodule in the left upper lobe, image 33 of series 5. 3 small noncalcified nodules are seen in the right upper lobe, in the same vicinity, images 23 through 26. There is a 3 mm intrafissural nodule in the major fissure on the right, likely an intrafissural lymph node. There are tiny bilateral fat-containing Bochdalek hernia is incidentally noted. The esophagus is dilated proximally, gas-filled. The heart size is normal. No pericardial effusion. No mediastinal or hilar mass or adenopathy. No axillary chest wall mass or adenopathy. The included upper abdominal anatomy is unremarkable. Impression: L1 vertebral body compression fracture, acuity indeterminate but new since the prior abdomen and pelvis CT scan of 10/10/2017. Consider MRI for better characterization if this is considered clinically relevant No other acute bony trauma. Note old L1 vertebral body compression fracture No evidence of significant soft tissue contusion, hematoma, or pulmonary parenchymal contusion Noncalcified left upper lobe pulmonary nodule an several small noncalcified nodules in the right upper lobe. If patient is at high risk for lung carcinoma, this should be followed up in 6-12 months. If patient is at low risk then no further follow-up is necessary Evidence of old granulomatous disease within the right lung. Mildly dilated gas filled proximal esophagus, probably on basis of age-related dysmotility The CT scanner at [facility] is accredited by the [employer] and the scans are performed using protocols designed to limit radiation exposure to as low as reasonably achievable to attain images of sufficient resolution adequate for diagnostic evaluation.
[2020-04-05 13:01] LABS: BASOPHILS % (AUTO) 1.1 % (0.0-2.0); EOSINOPHILS % (AUTO) 2.8 % (0.0-3.0); HEMATOCRIT 32.4 % (37.0-47.0); HEMOGLOBIN 10.7 G/DL (12.0-16.0); LYMPHOCYTES % (AUTO) 34.7 % (20.0-45.0); MEAN CORPUSCULAR VOLUME 95 FL (80-99); MONOCYTES % (AUTO) 9.1 % (1.0-10.0); NEUTROPHILS % (AUTO) 52.2 % (45.0-75.0); PLATELET COUNT 268 K/UL (150-450); RED CELL DISTRIBUTION WIDTH 12.8 % (11.6-14.8); WHITE BLOOD COUNT 4.8 K/UL (4.8-10.8)
[2020-04-05 13:20] LABS: ANION GAP 6 mmol/L (5-15); BLOOD UREA NITROGEN 8 mg/dL (7-18); CALCIUM 8.8 MG/DL (8.5-10.1); CARBON DIOXIDE 30 MMOL/L (21-32); CHLORIDE 99 MMOL/L (98-107); CREATININE 0.7 MG/DL (0.55-1.30); POTASSIUM 3.9 MMOL/L (3.5-5.1); SODIUM 134 MMOL/L (136-145)
[2020-04-05 13:24] LABS: ALANINE AMINOTRANSFERASE 17 U/L (12-78); ALBUMIN 3.1 G/DL (3.4-5.0); ALBUMIN/GLOBULIN RATIO 0.8 (1.0-2.7); ALKALINE PHOSPHATASE 63 U/L (46-116); ASPARTATE AMINO TRANSFERASE 16 U/L (15-37); BILIRUBIN,TOTAL 0.3 MG/DL (0.2-1.0); INR 1.1 (0.9-1.1)
[2020-04-05] MEDS ORDERED: LIDODERM700 M1 TOPIC (14:23)
--- NOTE | 2020-04-05 14:26 | NUR ---
ED Nurse Note: Dr Brown is okay for patient to eat/drink at this time. Richardson and juice provided to patient.
[2020-04-05 14:50] VITALS: BP 136/78
== END 2020-04-05 14:53 | disposition home or self-care (01) ==
LOC: EMR 14:34
DX: S20.212A Contusion of left front wall of thorax, initial encounter (principal); W19.XXXA Unspecified fall, initial encounter; Y92.9 Unspecified place or not applicable; Z88.6 Allergy status to analgesic agent; Z86.73 Personal history of transient ischemic attack (TIA), and cerebral infarction without residual deficits; M06.9 Rheumatoid arthritis, unspecified; Z90.710 Acquired absence of both cervix and uterus; Z90.49 Acquired absence of other specified parts of digestive tract; I10 Essential (primary) hypertension; Z85.72 Personal history of non-Hodgkin lymphomas; R91.8 Other nonspecific abnormal finding of lung field
CPT/HCPCS: 36415; 71250; 80053; 85025; 85610; 85730; 93005; 96372; 96374; 96375; 99284; J2270; J2405